=== PATIENT | female | born 1940 | race Caucasian/White ===

== ENCOUNTER 2020-01-25 15:16 | Outpatient (REF) | payer MEDICARE, SELFPAY ==
--- NOTE | 2020-01-25 16:14 | XR_ITS ---
EXAMINATION: XR HIP, LEFT CLINICAL INFORMATION: Pain. COMPARISON: None TECHNIQUE: Two views of the left hip. FINDINGS: There is no visible acute fracture, dislocation or subluxation. No bony erosive changes seen. The soft tissues are normal. XR/XR hip LT min 2V IMPRESSION: Unremarkable left hip exam.
== END 2020-01-25 15:17 | disposition home or self-care (01) ==
LOC: HO.XRAY 15:16
PROVIDERS: PCP Family Medicine; Visit Provider Emergency Medicine
DX: M25.552 Pain in left hip (principal); Z91.81 History of falling
CPT/HCPCS: 73502

== ENCOUNTER 2020-02-01 15:23 | Inpatient (IN) | payer MEDICARE, SELFPAY ==
[2020-02-01 15:33] VITALS: BP 172/90; PULSE 89; PULSE 93; RESP 18; TEMP 36.9; O2SAT 98; BMI 27.7
--- NOTE | 2020-02-01 15:38 | CT_ITS ---
EXAMINATION: CT PELVIS WITHOUT CONTRAST CLINICAL INFORMATION: Fall one week ago with continued pain COMPARISON: Hip radiographs 01/25/2020 TECHNIQUE: Helical scanning was performed with submillimeter collimation through the pelvis. Sagittal and coronal multiplanar 2-D reconstructions were obtained. This CT examination was performed using dose optimization techniques as appropriate, variously including the following: *Automated exposure control *Adjustment of mA and/or kV according to patient size (this includes techniques or standardized protocols for targeted exams where dose is matched to indication/reason for exam; i.e. extremities or head) *Use of iterative reconstruction technique DLP: 566 mGy-cm FINDINGS: There is a subcapital fracture of the left femur, minimally impacted. No other fractures are seen. 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 (Series 5 image 46). Atherosclerotic changes are present in the aorta and iliac vessels. An anteverted uterus is present. An abnormal adnexal mass or free intraperitoneal fluid is not seen. No hernias are identified. CT/CT pelvis wo con IMPRESSION: Subcapital fracture of the left femur, minimally impacted. Incidentally noted small bowel lipoma This critical result was discussed with Sariah HEWITT @ 518 pm on the day the exam and it was ascertained that the content and urgency of the report was understood at the time of direct communication.
--- NOTE | 2020-02-01 15:39 | ED.LOWEXIN ---
HPI - Extremity Injury (Lower) General Chief Complaint: Fall Stated Complaint: RT HIP PAIN S/P FALL 1 WEEK AGO Time Seen by Provider: 02/01/20 15:29 Source: EMS Mode of arrival: EMS History of Present Illness HPI Narrative: 79-year-old female with a past medical history of hypertension, diabetes, hyperlipidemia, dementia, seizures, complaining of continued left hip pain s/p fall 1 week ago from standing. Patient had negative x-rays outpatient with PCP on 01/25/20, but was sent in for CT for further evaluation. Reportedly from PCP records pain worse when walking, relieved with rest. Per PCP fax records daughter reported patient had a fall again last night and was advised to come to ED. Patient was unaccompanied by any family to ED MD complaint: hip injury Onset (ago): week(s) Related Data Allergies Allergy/AdvReac Type Severity Reaction Status Date / Time penicillin V Allergy Unknown Verified 02/12/16 00:00 Penicillins [PENICILLINS] Allergy Unknown RASH Unverified 11/10/19 15:34 Review of Systems Review of Systems: MSK: +L hip pain History unobtainable due to patient's dementia Yes all other systems are reviewed and are negative PMFSH Past Medical History Attestation statement: The following information was validated with the patient. Social History Social History Advance Directives: No Advance Directives Information Provided: No Physical Exam Vital Signs: Vital Signs: Last Vital Signs Temp 98.4 F 02/01/20 15:33 Pulse 89 02/01/20 15:33 Resp 18 02/01/20 15:33 BP 172/90 H 02/01/20 15:33 Pulse Ox 98 02/01/20 15:33 Body Mass Index 27.7 Const: Other: pleasantly demented General: cooperative Limitations: no limitations HENMT: Head: Yes normal to inspection Ears: hearing grossly normal bilaterally General nose exam: Normal external nose present Face and sinus: Yes normal facial exam Eyes: General: appearance normal, both eyes and all related structures EOM: EOMs intact bilaterally Neck: Other: No midline cervical spinous tenderness or step-offs Neck: Yes normal visual inspection Resp: Effort & Inspection: normal respiratory effort Cardio: Rate: regular rate Peripheral pulses: dorsalis pedis present GI: Inspection: Yes normal to inspection Palpation (GI): Soft to palpation, nontender, no guarding and not rigid Back/Spine/Pelvis: Other: No midline spinous tenderness throughout or palpable step-offs/deformity Skin: Rashes: no rashes Wounds: no wounds Extrem: Other: + left hip with ttp, and pain with passive ROM. Neurovascularly intact. No appreciable deformity/signs of infection General: Yes normal to inspection Course Course Course Narrative: --1700--ED care transferred to VOCATIONAL TRAINING DIRECTOR Jason pending CT results and dispo per results MDM - Extremity Injury (Lower) MDM Narrative Medical decision making narrative: 79-year-old female with a past medical history of hypertension, diabetes, hyperlipidemia, dementia, seizures, complaining of continued left hip pain s/p fall 1 week ago from standing. On exam VSS, NAD/well-appearing, left hip with tenderness and pain with passive ROM. Concern for fracture. Plan: Will obtain CT pelvis/hip Discharge Plan Discharge Clinical Impression: Acute hip pain Qualifiers: Laterality: left Qualified Code(s): M25.552 - Pain in left hip Fall Qualifiers: Encounter type: initial encounter Qualified Code(s): W19.XXXA - Unspecified fall, initial encounter
[2020-02-01] MEDS: LORazepam 2 MG/ML VIAL 0.5 MG IVPUSH (17:53)
[2020-02-01 17:55] VITALS: BP 134/92; RESP 18; O2SAT 98
[2020-02-01 18:10] VITALS: BP 172/90; PULSE 92; RESP 18
--- NOTE | 2020-02-01 18:17 | P.HPHOSP_ITS ---
History of Present Illness Date of Service: 02/01/20 Chief Complaint: left hip pain History taken by phone from the patient's daughter Gabbie, due to the patient's dementia. 79 year-old woman with DM2, HTN, HLD, seizure disorder s/p excision of benign brain tumor, and dementia who slipped and fell on 01/19/20. No head trauma or LOC. She called her PCP office on 01/24/20 and an X-ray was done on 01/25/20, which showed no fracture. However, later on on 01/25/20, she slipped and fell again. Since then, she has had darker, less frequent urination with hesitancy and bad odor. She is confused at baseline, but seems to be more so. She also has had increasing L hip pain, though she denies this to me. In the ED, a CT of the hip demonstrated a minimally impacted subcapital femur fracture. ROS limited by patient's dementia but she denies fever, chest pain, dyspnea, or abdominal pain. She says she feels absolutely fine but her daughter is an unreliable historian. Review of Systems Review of Systems: Yes Other (as per HPI, limited by dementia) Neurologic: Reports confusion Psychiatric: Psychiatric: Reports confusion [facility] Medical History Dementia Dyslipidemia Essential hypertension History of benign brain tumor Seizure disorder Type 2 diabetes mellitus Family history: reviewed and not pertinent Surgical History History of delivery History of cholecystectomy History of craniotomy Social History Household Members: Family Housing: Apartment Smoking Status: Never smoker Second Hand Smoke Exposure: No Meds Allergies Allergy/AdvReac Type Severity Reaction Status Date / Time penicillin V Allergy Unknown Verified 02/12/16 00:00 Penicillins [PENICILLINS] Allergy Unknown RASH Unverified 11/10/19 15:34 Home Medications Medication Instructions Recorded Confirmed Type amlodipine 10 mg PO DAILY 02/01/20 02/01/20 History baclofen 2.5 mg PO BID PRN 02/01/20 02/01/20 History cyanocobalamin (vitamin B-12) 500 mcg PO DAILY 02/01/20 02/01/20 History lamotrigine 50 mg PO DAILY 02/01/20 02/01/20 History lisinopril 20 mg PO DAILY 02/01/20 02/01/20 History melatonin 3 mg PO BEDTIME 02/01/20 02/01/20 History memantine 5 mg PO BID 02/01/20 02/01/20 History metformin 500 mg PO DAILY 02/01/20 02/01/20 History quetiapine 25 mg PO BEDTIME 02/01/20 02/01/20 History rosuvastatin 5 mg PO DAILY 02/01/20 02/01/20 History Physical Exam Vital Signs and Narrative: Vital Signs: Last Vital Signs Temp 98.4 F 02/01/20 15:33 Pulse 89 02/01/20 15:33 Resp 18 02/01/20 15:33 BP 172/90 H 02/01/20 15:33 Pulse Ox 98 02/01/20 15:33 Body Mass Index 27.7 Const: General: cooperative, healthy appearing, no acute distress, well developed and confusion Orientation/consciousness: confusion HENMT: Head: Yes normal to inspection Mouth: Normal oral and palatal mucosa present Eyes: Sclerae: sclerae normal Neck: Yes normal visual inspection, Yes no lymphadenopathy and Yes supple Thyroid: Thyroid normal Chest: Chest palpation & inspection: normal inspection of the chest Resp: Effort & Inspection: normal respiratory effort Auscultation: clear to auscultation bilaterally Cardio: Rate: regular rate Rhythm: regular rhythm GI: Inspection: Yes normal to inspection Palpation (GI): Soft to palpation and nontender Skin: General skin exam: no rashes or lesions noted Neuro: General: confusion Extrem: Other: minimal tenderness L hip, ROM surprisingly causes minimal pain General: Yes normal to inspection Results Labs CBC and Chem 7: 02/01/20 18:28 02/01/20 18:28 Imaging Radiologist's Impressions: Impressions Pelvis CT 02/01/20 15:38 IMPRESSION: Subcapital fracture of the left femur, minimally impacted. Incidentally noted small bowel lipoma This critical result was discussed with Sariah HEWITT @ 518 pm on the day the exam and it was ascertained that the content and urgency of the report was understood at the time of direct communication. Assessment and Plan (1) Hip fracture: Status: Acute 79yo F with PMHx HTN, DM2, HLD, dementia, and seizure disorder presenting with subcapital femur fracture after 2 falls # hip fracture - Ortho consult, NPO after midnight # urinary symptoms - check UA/UM/UCx # HTN - continue lisinopril and amlodipine # HLD - continue statin # DM2 - hold MTF, give correction-dose lispro # seizure disorder - continue lamotrigine # dementia - continue memantine, quetiapine, and melatonin # dispo - will need PT consult after any operative intervention planned # VTE ppx - BLE SCDs, t/c LMWH postoperatively # code - FULL per discussion with daughter
[2020-02-01 18:25] VITALS: BP 172/92; PULSE 84; RESP 18; O2SAT 98
[2020-02-01 18:37] LABS: MANUAL DIFF FLAG NO
[2020-02-01 18:38] LABS: Glucose Urine UA NEG (NEG); Leukocyte Esterase Urine NEG (NEG); Nitrite Urine NEG (NEG); PH 5.5 (5.0-8.0); Specific Gravity - Urine <= 1.005 (1.005-1.025); Urine Blood TRACE (NEG); Urine Ketones NEG (NEG); Urine Protein NEG (NEG-TRACE)
[2020-02-01 18:40] LABS: Appearance Urine CLEAR; Color Urine YELLOW
[2020-02-01 18:43] LABS: Bacteria Urine TRACE /LPF; RBC Urine 0-2 /HPF (0); WBC Urine 0 /HPF (0-4)
[2020-02-01 18:56] LABS: Basophils Absolute Auto 0.1 X10*3/uL (0.0-0.2); Basophils Percent Auto 0.7 % (0-2); Eosinophils Absolute Auto 0.2 X10*3/uL (0.0-0.4); Eosinophils Percent Auto 2.1 % (0-4); Hematocrit 39.9 % (37-47); Hemoglobin 12.9 g/dl (12.0-16.0); Imm Gran Abs Auto 0.07 X10*3/uL (0.00-0.03); Imm Gran Pct Auto 0.8 % (0.0-0.4); Lymphocytes Percent Auto 23.5 % (20-40); Mean Corpuscular HGB Conc 32.3 g/dl (31.0-35.0); Mean Corpuscular Hemoglobin 27.6 pg (27.0-33.0); Mean Corpuscular Volume 85.3 fL (80-98); Mean Platelet Volume 11.9 fL (9.4-12.3); Monocytes Absolute Auto 0.5 X10*3/uL (0.1-1.2); Monocytes Percent Auto 6.2 % (2-11); Neutrophils Absolute Auto 5.7 X10*3/uL (2.0-8.3); Neutrophils Percent Auto 66.7 % (45-73); Platelet Count 212 X10*3/uL (160-400); Red Blood Count 4.68 X10*6/uL (4.20-5.50); Red Cell Distribution Width 12.4 % (11.0-16.0); White Blood Count 8.6 X10*3/uL (4.8-10.8)
[2020-02-01 19:19] LABS: Alanine Aminotransferase 16 U/L (0-31); Albumin Level 4.1 g/dL (3.5-5.0); Alkaline Phosphatase 94 U/L (39-117); Anion Gap 14 (12-20); Aspartate Amino Transferase 17 U/L (5-31); Bilirubin Total 0.2 mg/dL (0.0-1.0); Blood Urea Nitrogen 18 mg/dL (9-16); Calcium 8.8 mg/dL (8.4-10.2); Carbon Dioxide 27 mmol/L (22-29); Chloride 106 mmol/L (96-108); Creatinine Clr Calc Pharmacy 55.3; Estimated Glomerular Filt Rate > 60; Glucose Random 96 mg/dL (60-115); Potassium 4.5 mmol/l (3.3-5.1); Sodium 142 mmol/L (135-145)
--- NOTE | 2020-02-01 19:41 | PC.NURSE ---
PT SPEAKING IN NAURUAN. PT RESTING IN STRETCHER PULLING ON HAGAN CATH. PT REMOVED HAGAN CATH SECURE. SECURE REPLACED. PT REQUESTING FOOD. PT AWAKE, RESPIRATIONS EASY, N/L. PT AWAITING FOR POSSIBLE ADMISSION. WILL CONTINUE TO MONITOR PT.
--- NOTE | 2020-02-01 19:45 | PC.NURSE ---
LABS DRAWN TO LAB.
--- NOTE | 2020-02-01 19:47 | P.HPOP_ITS ---
History of Present Illness History of Present Illness Date of Service: 02/01/20 Chief complaint: RT HIP PAIN S/P FALL 1 WEEK AGO Narrative: Suzanne Sam is a 79 year old female who presented to the ED via EMS due to left hip pain. Spoke to her daughter Linn, who states she fell last week and refused EMS because she was able to get up and walk, but then the following day she fell again. She was seen on 01/23 by her PCP for left hip pain, xray at the time was not obvious for fracture. As the days went on her pain increased which prompted her to come to the ED. While in the ED, CT scan was obtained which demonstrated a minimally displaced femoral neck fracture on the left. She was admitted to medical service and orthopedics was consulted for surgical planning. Review of Systems Review of Systems: Yes all other systems are reviewed and are negative Neurologic: Reports confusion Psychiatric: Psychiatric: Reports confusion PMFSH Past Medical History Medical History Dementia Dyslipidemia Essential hypertension History of benign brain tumor Seizure disorder Type 2 diabetes mellitus Family History Family history: reviewed and not pertinent Surgical History Surgical History History of delivery History of cholecystectomy History of craniotomy Social History Social History (Updated 02/01/20 @ 20:00 by Wilmer Delacruz PA-C) Household Members Other:: lives with and daughter, no EtOH/tobacco/drugs Housing Other:: no amb. device Advance Directives: No Advance Directives Information Provided: No Meds Allergies Allergy/AdvReac Type Severity Reaction Status Date / Time penicillin V Allergy Unknown Verified 02/12/16 00:00 Penicillins [PENICILLINS] Allergy Unknown RASH Unverified 11/10/19 15:34 Home Medications Medication Instructions Recorded Confirmed Type amlodipine 10 mg PO DAILY 02/01/20 02/01/20 History baclofen 2.5 mg PO BID PRN 02/01/20 02/01/20 History cyanocobalamin (vitamin B-12) 500 mcg PO DAILY 02/01/20 02/01/20 History lamotrigine 50 mg PO DAILY 02/01/20 02/01/20 History lisinopril 20 mg PO DAILY 02/01/20 02/01/20 History melatonin 3 mg PO BEDTIME 02/01/20 02/01/20 History memantine 5 mg PO BID 02/01/20 02/01/20 History metformin 500 mg PO DAILY 02/01/20 02/01/20 History quetiapine 25 mg PO BEDTIME 02/01/20 02/01/20 History rosuvastatin 5 mg PO DAILY 02/01/20 02/01/20 History Physical Exam Vital Signs: Vital Signs: Last Vital Signs Temp 98.4 F 02/01/20 15:33 Pulse 84 02/01/20 18:25 Resp 18 02/01/20 18:25 BP 172/92 H 02/01/20 18:25 Pulse Ox 98 02/01/20 18:25 Body Mass Index 27.7 Const: General: confusion Orientation/consciousness: confusion HENMT: Head: Yes normal to inspection, Yes normocephalic and Yes atraumatic Eyes: General: appearance normal, both eyes and all related structures Neck: Neck: Yes normal visual inspection and Yes no lymphadenopathy Resp: Effort & Inspection: normal respiratory effort and able to speak in complete sentences Cardio: Rate: regular rate Peripheral pulses: Peripheral pulses 2+ throughout GI: Palpation (GI): Soft to palpation Skin: General skin exam: no rashes or lesions noted and turgor normal Neuro: General: confusion Extrem: Other: Left hip minimal tenderness over the lateral aspect of the hip, no pain with log roll, she can initiate hip flexion but unable to full lift the leg. Skin intact, peripheral pulses intact. Results Labs Result Diagrams: 02/01/20 18:28 02/01/20 18:28 Labs: Abnormal lab results 02/01/20 02/01/20 Range/Units 18:28 18:28 Immature Gran % (Auto) 0.8 H (0.0-0.4) % Abs Immat Gran (auto) 0.07 H (0.00-0.03) X10*3/uL BUN 18 H (9-16) mg/dL H & H 02/01/20 Range/Units 18:28 Hgb 12.9 (12.0-16.0) g/dl Hct 39.9 (37-47) % All other labs normal. Assessment and Plan (1) Hip fracture: Status: Acute I discussed the case with Dr Haley . I spoke with the patients daughter, Bettina and explained the extent of the injury to the and options avai lable which include surgical intervention. I explained the procedure in detail along with the length of recovery and rehab course. I explained the risk, benefits and alternatives. Risk including, but not limited to infection, blood clots, bleeding, non union or malunion and nerve/tissue damage to surrounding areas. I answered all their questions and with their understanding they have consented to move forward with Operative Fixation of the left hip . The patient with be T&S, med clearance obtained and NPO after midnight. The daughter BETTINA signs consents ph: [phone]
--- NOTE | 2020-02-01 19:55 | PC.NURSE ---
CASE MGT SPEAKING WITH DAUGHTER ON PHONE.
[2020-02-01 20:01] LABS: Prothrombin Time 12.1 SEC (10.8-13.0)
[2020-02-01 20:03] LABS: Glucose, Whole Blood 102 mg/dL (60-115)
[2020-02-01 20:04] LABS: Partial Thromboplastin Time 37.2 SEC (24.1-38.0)
--- NOTE | 2020-02-01 21:16 | PC.NURSE ---
PT RESTLESS AND CONSTANTLY PULLING AT IV AND HAGAN TUBE. PT PULLED OUT IV AT THIS TIME. PT CLEANED UP WITH FRESH LINENS TO STRETCHER. PT GIVEN CRACKERS. G NURSE AWARE OF PT. COVID TEST OBTAINED FOR ADMISSION.
[2020-02-01] MEDS: Haloperidol Lactate 5 MG/ML VIAL IM (21:22)
[2020-02-01] MEDS: Melatonin 3 MG TABLET PO (22:00)
[2020-02-01] MEDS: QUEtiapine Fumarate 25 MG TABLET PO (22:00)
--- NOTE | 2020-02-01 22:13 | PC.NURSE ---
HL PLACED TO LEFT WRIST. PT UNDER CLOSE OBS D/T PULLING AT IV AND HAGAN CATH. PT EATING CRACKERS AND DRINKING WATER WITHOUT DIFFICULTY. PT IS NPO AFTER MIDNIGHT. COVID TEST OBTAINED TO LAB PER ORDERS. CONTINUE TO WAIT FOR BED ASSIGNMENT. PT AWAKE AND TUVALUAN SPEAKING WITH STAFF. PT REMINDED SEVERAL TIMES TO STAY IN BED. WILL CONTINUE TO MONITOR PT.
[2020-02-01 22:18] LABS: COVID-19 Test Negative (Negative); IDNOW Serial# 9DD0AD1C
[2020-02-01] MEDS: Morphine Sulfate 4 MG/ML CARTRIDGE 1 MG IVPUSH (22:22)
[2020-02-01 22:28] LABS: Glucose, Whole Blood 122 mg/dL (60-115)
[2020-02-02] VITALS (16 sets, daily range): BP systolic 126–197; BP diastolic 62–85; PULSE 64–119; RESP 14–20; TEMP 36.2–37.1; O2SAT 94–100
--- NOTE | 2020-02-02 | ECG_ITS ---
Test Reason : tachycardic Blood Pressure : / mmHG Vent. Rate : 117 BPM Atrial Rate : 117 BPM P-R Int : 156 ms QRS Dur : 128 ms QT Int : 350 ms P-R-T Axes : 077 -09 142 degrees QTc Int : 488 ms Sinus tachycardia Left bundle branch block Abnormal ECG Compared to 20 September 2018 at 14:40:41 Vent. rate increased Referred By: Sofia Gomez Electronically Signed By:CLAUDIA MATSON
--- NOTE | 2020-02-02 01:14 | PC.NURSE ---
REPORT TO FLOOR AT THIS TIME. PT RESTING IN STRETCHER. BELONGINGS WITH PT.
[2020-02-02] MEDS: 0.9 % Sodium Chloride Flush 3 ML SYRINGE IVFLUSH ×2 (02:31→20:13)
[2020-02-02 07:05] LABS: MANUAL DIFF FLAG NO
[2020-02-02 07:16] LABS: Basophils Percent Auto 0.5 % (0-2); Eosinophils Absolute Auto 0.2 X10*3/uL (0.0-0.4); Eosinophils Percent Auto 2.2 % (0-4); Hematocrit 37.6 % (37-47); Hemoglobin 12.2 g/dl (12.0-16.0); Imm Gran Abs Auto 0.03 X10*3/uL (0.00-0.03); Imm Gran Pct Auto 0.4 % (0.0-0.4); Lymphocytes Absolute Auto 1.3 X10*3/uL (1.2-4.9); Lymphocytes Percent Auto 16.9 % (20-40); Mean Corpuscular HGB Conc 32.4 g/dl (31.0-35.0); Mean Corpuscular Hemoglobin 27.7 pg (27.0-33.0); Mean Corpuscular Volume 85.5 fL (80-98); Monocytes Absolute Auto 0.5 X10*3/uL (0.1-1.2); Monocytes Percent Auto 6.8 % (2-11); Neutrophils Absolute Auto 5.6 X10*3/uL (2.0-8.3); Neutrophils Percent Auto 73.2 % (45-73); Platelet Count 224 X10*3/uL (160-400); Red Cell Distribution Width 12.5 % (11.0-16.0); White Blood Count 7.6 X10*3/uL (4.8-10.8)
[2020-02-02 07:23] LABS: Glucose, Whole Blood 116 mg/dL (60-115)
--- NOTE | 2020-02-02 07:26 | MHC.SHP ---
Pre-Procedural Eval Section A The patient is an INPATIENT: Yes Section B Chief Complaint: RT HIP PAIN S/P FALL 1 WEEK AGO Allergies: Allergies Allergy/AdvReac Type Severity Reaction Status Date / Time penicillin V Allergy Unknown Verified 02/12/16 00:00 Penicillins [PENICILLINS] Allergy Unknown RASH Unverified 11/10/19 15:34 Plan Patient has been examined and remains a candidate for the planned procedure
[2020-02-02] MEDS: ceFAZolin Sodium/Dextrose,Iso 2 GM/50 ML PIGGYBACK IV ×2 (07:30→13:28)
--- NOTE | 2020-02-02 07:36 | P.CONAN_ITS ---
HPI - Anesthesia Eval Consult details Narrative: 79 F w/femoral neck fracture [facility] Past Medical History Medical History Dementia Dyslipidemia Essential hypertension History of benign brain tumor Seizure disorder Type 2 diabetes mellitus Surgical History Surgical History History of delivery History of cholecystectomy History of craniotomy Social History Social History Household Members: Family Housing: Apartment Smoking Status: Never smoker Second Hand Smoke Exposure: No Meds Allergies Allergy/AdvReac Type Severity Reaction Status Date / Time penicillin V Allergy Unknown Verified 02/12/16 00:00 Penicillins [PENICILLINS] Allergy Unknown RASH Unverified 11/10/19 15:34 Home Medications Medication Instructions Recorded Confirmed Type amlodipine 10 mg PO DAILY 02/01/20 02/01/20 History baclofen 2.5 mg PO BID PRN 02/01/20 02/01/20 History cyanocobalamin (vitamin B-12) 500 mcg PO DAILY 02/01/20 02/01/20 History lamotrigine 50 mg PO DAILY 02/01/20 02/01/20 History lisinopril 20 mg PO DAILY 02/01/20 02/01/20 History melatonin 3 mg PO BEDTIME 02/01/20 02/01/20 History memantine 5 mg PO BID 02/01/20 02/01/20 History metformin 500 mg PO DAILY 02/01/20 02/01/20 History quetiapine 25 mg PO BEDTIME 02/01/20 02/01/20 History rosuvastatin 5 mg PO DAILY 02/01/20 02/01/20 History Exam Exam Date and Time: February 02, 2020 0736 Height,Weight and Vital Signs: Height 5 ft 6 in Weight 78 kg Last Vital Signs Temp 97.1 F 02/02/20 07:22 Pulse 70 02/02/20 07:22 Resp 18 02/02/20 07:22 BP 145/81 H 02/02/20 07:22 Pulse Ox 97 02/02/20 07:22 Pertinent Lab Results Pertinent Lab Results: Laboratory Tests 02/01/20 02/01/20 02/01/20 18:27 18:28 18:28 WBC 8.6 RBC 4.68 Hgb 12.9 Hct 39.9 MCV 85.3 MCH 27.6 MCHC 32.3 RDW 12.4 Plt Count 212 MPV 11.9 Immature Gran % (Auto) 0.8 H Neut % (Auto) 66.7 Lymph % (Auto) 23.5 [place] % (Auto) 6.2 Eos % (Auto) 2.1 Baso % (Auto) 0.7 Lymph # (Auto) 2.0 Jasper # (Auto) 0.5 Eos # (Auto) 0.2 Baso # (Auto) 0.1 Abs Immat Gran (auto) 0.07 H Absolute Neuts (auto) 5.7 Absolute Nucleated RBC 0.000 Nucleated RBC % (auto) 0.0 PT INR APTT Sodium 142 Potassium 4.5 Chloride 106 Carbon Dioxide 27 Anion Gap 14 BUN 18 H Creatinine 0.84 Estim Creat Clear Calc 55.3 Estimated GFR > 60 POC Glucose Random Glucose 96 Calcium 8.8 Total Bilirubin 0.2 AST 17 ALT 16 Alkaline Phosphatase 94 Total Protein 7.0 Albumin 4.1 Urine Color Urine Appearance Urine pH Ur Specific [place] Urine Protein Urine Glucose (UA) Urine Ketones Urine Blood Urine Nitrite Ur Leukocyte Esterase Urine RBC Urine WBC Ur Squamous Epith Cells Urine Bacteria COVID-19 ([facility]) COVID-19 Clin Com Blood Type B Positive Antibody Screen NEGATIVE 02/01/20 02/01/20 02/01/20 18:28 19:43 19:58 WBC RBC Hgb Hct MCV MCH MCHC RDW Plt Count MPV Immature Gran % (Auto) Neut % (Auto) Lymph % (Auto) [place] % (Auto) Eos % (Auto) Baso % (Auto) Lymph # (Auto) [place] # (Auto) Eos # (Auto) Baso # (Auto) Abs Immat Gran (auto) Absolute Neuts (auto) Absolute Nucleated RBC Nucleated RBC % (auto) PT 12.1 INR 1.0 APTT 37.2 Sodium Potassium Chloride Carbon Dioxide Anion Gap BUN Creatinine Estim Creat Clear Calc Estimated GFR POC Glucose 102 Random Glucose Calcium Total Bilirubin AST ALT Alkaline Phosphatase Total Protein Albumin Urine Color YELLOW Urine Appearance CLEAR Urine pH 5.5 Ur Specific [place] <= 1.005 Urine Protein NEG Urine Glucose (UA) NEG Urine Ketones NEG Urine Blood TRACE Urine Nitrite NEG Ur Leukocyte Esterase NEG Urine RBC 0-2 Urine WBC 0 Ur Squamous Epith Cells NONE Urine Bacteria TRACE COVID-19 ([facility]) COVID-19 Clin Com Blood Type Antibody Screen 02/01/20 02/01/20 02/02/20 21:25 22:24 07:20 WBC RBC Hgb Hct MCV MCH MCHC RDW Plt Count MPV Immature Gran % (Auto) Neut % (Auto) Lymph % (Auto) [place] % (Auto) Eos % (Auto) Baso % (Auto) Lymph # (Auto) [place] # (Auto) Eos # (Auto) Baso # (Auto) Abs Immat Gran (auto) Absolute Neuts (auto) Absolute Nucleated RBC Nucleated RBC % (auto) PT INR APTT Sodium Potassium Chloride Carbon Dioxide Anion Gap BUN Creatinine Estim Creat Clear Calc Estimated GFR POC Glucose 122 H 116 H Random Glucose Calcium Total Bilirubin AST ALT Alkaline Phosphatase Total Protein Albumin Urine Color Urine Appearance Urine pH Ur Specific [place] Urine Protein Urine Glucose (UA) Urine Ketones Urine Blood Urine Nitrite Ur Leukocyte Esterase Urine RBC Urine WBC Ur Squamous Epith Cells Urine Bacteria COVID-19 ([facility]) Negative COVID-19 Clin Com See Note Blood Type Antibody Screen Airway Mallampati Class: II TM Dist: >3cm Neck ROM: Full Loose/Missing/Broken Teeth: Yes (Multiple missing teeth, none loose) Assessment and Plan Assessment Anesthesia Assessment: Anesthesia Plan Discussed and Chart Reviewed Final Anesthetic Review NPO: Yes ASA Class: III Final Preanesthetic Review: No Changes in Pt Med Stat, Meds/Allgs Chart Reviewed, Consent Obtained/Reviewed and Anes Risks/Benef Reviewed Patient Risk: High Procedure Risk: Low Anesthetic Plan Anesthetic Plan: GA Disposition: Standard PACU
--- NOTE | 2020-02-02 07:36 | PC.NURSE ---
cefazolin to be given by anesthesia
[2020-02-02 07:47] LABS: Anion Gap 14 (12-20); Blood Urea Nitrogen 14 mg/dL (9-16); Calcium 8.9 mg/dL (8.4-10.2); Carbon Dioxide 24 mmol/L (22-29); Chloride 108 mmol/L (96-108); Creatinine Clr Calc Pharmacy 59.6; Estimated Glomerular Filt Rate > 60; Glucose Random 108 mg/dL (60-115); Potassium 4.2 mmol/l (3.3-5.1); Sodium 142 mmol/L (135-145)
[2020-02-02] MEDS: Lactated Ringers 1,000 ML 50 ML IVCONT (07:48)
--- NOTE | 2020-02-02 09:06 | PM.PRCOR ---
Brief Operative Note Date of procedure: 02/02/20 Pre-op diagnosis: left hip fracture Post-op diagnosis: same Procedure: operative fixation left hip with hemiarthroplasty Anesthesia: RHYSA Surgeon: Chikis Haley Six Sigma Project Manager: Wilmer Delacruz Estimated blood loss (mL): 100 Condition: stable Disposition: PACU
[2020-02-02 11:37] LABS: Glucose, Whole Blood 196 mg/dL (60-115)
[2020-02-02] MEDS: Insulin Lispro 100 UNIT/ML 3 ML VIAL SUBCUT ×2 (11:59→20:39)
[2020-02-02] MEDS: oxyCODONE HCl Immed Release 5 MG TABLET PO ×2 (11:59→17:43)
--- NOTE | 2020-02-02 12:32 | MHC.CM.PN ---
CM spoke with dtr/HCP Gabbie by phone [phone] who reports patient is amb independently and lives with her and other dtr. Patient has 24/7 care at home r/t dementia. HCP is Gabbie, copy requested. Discussed discharge plan which is STR, 1st choice is [facility], referral made via allscripts. Patient will need BLS transport. CM will continue to follow for discharge needs.
[2020-02-02] MEDS: Morphine Sulfate 4 MG/ML CARTRIDGE 1 MG IVPUSH ×2 (13:55→20:12)
--- NOTE | 2020-02-02 14:38 | HO.PM.IMPN ---
Subjective Subjective Date of Service: 02/02/20 Interval History: underwent operative fixation left hip with hemiarthroplasty today unable to obtain reliable ROS due to advanced dementia Physical Exam Vital Signs: Vital Signs: Last Vital Signs Temp 98 F 02/02/20 10:28 Pulse 93 02/02/20 10:28 Resp 18 02/02/20 13:55 BP 142/70 H 02/02/20 10:28 Pulse Ox 95 02/02/20 10:28 Body Mass Index 27.7 Gen: in no acute distress HEENT: sclera anicteric, moist mucus membranes Neck: supple Lungs: clear to auscultation bilaterally Heart: regular rate and rhythm, no murmurs Abd: soft, non-tender, non-distended Ext: no edema, L hip surgical incisions with dry dressings Skin: warm/well-perfused Neuro: disoriented Psych: impaired insight Objective Data Current Medications Generic Name Dose Route Start Last Admin Trade Name Freq PRN Reason Stop Dose Admin Acetaminophen 650 mg 02/01/20 18:06 Acetaminophen 325 Mg Tablet PO Q6H PRN pain or fever Amlodipine Besylate 10 mg 02/02/20 09:00 02/02/20 07:37 Amlodipine Besylate 10 Mg Tablet PO Not Given DAILY [facility] Protocol Aspirin 325 mg 02/03/20 22:00 Aspirin 325 Mg Tablet PO BID [facility] Atorvastatin Calcium 20 mg 02/02/20 09:00 02/02/20 07:37 Atorvastatin Calcium 20 Mg Tablet PO Not Given DAILY [facility] Cyanocobalamin 500 mcg 02/02/20 09:00 02/02/20 07:38 Cyanocobalamin (Vitamin B-12) 500 Mcg Tablet PO Not Given DAILY [facility] Lactated Ringer's 1,000 mls @ 50 mls/hr 02/02/20 07:45 02/02/20 07:48 Lr IVCONT 50 mls/hr .Q20H [facility] Administration Insulin Human Lispro 0 unit 02/01/20 21:00 02/02/20 11:59 Insulin Lispro 100 Unit/Ml 3 Ml Vial SUBCUT 2 unit QIDACHS [facility] Administration Protocol Lamotrigine 50 mg 02/02/20 09:00 02/02/20 07:38 Lamotrigine 25 Mg Tablet PO Not Given DAILY [facility] Lisinopril 20 mg 02/02/20 09:00 02/02/20 07:38 Lisinopril 20 Mg Tablet PO Not Given DAILY [facility] Protocol Melatonin 3 mg 02/01/20 21:00 02/01/20 22:00 Melatonin 3 Mg Tablet PO 3 mg BEDTIME [facility] Administration Memantine 5 mg 02/01/20 21:00 02/02/20 07:38 Memantine Hcl 5 Mg Tablet PO Not Given BID [facility] Morphine Sulfate 1 mg 02/01/20 18:12 02/02/20 13:55 Morphine Sulfate 4 Mg/Ml Cartridge IVPUSH 1 mg Q4H PRN Administration Pain, Severe (Pain Scale 7-10) Ondansetron HCl 4 mg 02/01/20 18:06 Ondansetron Hcl 4 Mg/2 Ml Vial IVPUSH Q8H PRN Nausea and Vomiting Oxycodone HCl 5 mg 02/02/20 12:00 02/02/20 11:59 Oxycodone Hcl Immed Release 5 Mg Tablet PO 5 mg RQ6H [facility] Administration Pharmacy Consult 1 each 02/01/20 17:36 Consult Rx Perform Med Rec MISCELLANE ONCE PRN Consult order Pharmacy Consult 1 each 02/01/20 17:51 Consult Rx Perform Med Rec MISCELLANE ONCE PRN Consult order Quetiapine Fumarate 25 mg 02/01/20 21:00 02/01/20 22:00 Quetiapine Fumarate 25 Mg Tablet PO 25 mg BEDTIME [facility] Administration Senna 17.2 mg 02/01/20 21:00 Sennosides 8.6 Mg Tablet PO ONCE [facility] Sodium Chloride 3 ml 02/02/20 00:00 02/02/20 07:37 0.9 % Sodium Chloride Flush 3 Ml Syringe IVFLUSH Not Given [facility] Sodium Chloride 3 ml 02/02/20 16:00 0.9 % Sodium Chloride Flush 3 [facility] CBC & Chem 7: 02/02/20 06:06 02/02/20 06:06 Labs: Laboratory Results - last 24 hr 02/01/20 02/01/20 02/01/20 18:27 18:28 18:28 WBC 8.6 RBC 4.68 Hgb 12.9 Hct 39.9 MCV 85.3 MCH 27.6 MCHC 32.3 RDW 12.4 Plt Count 212 MPV 11.9 Immature Gran % (Auto) 0.8 H Neut % (Auto) 66.7 Lymph % (Auto) 23.5 [place] % (Auto) 6.2 Eos % (Auto) 2.1 Baso % (Auto) 0.7 Lymph # (Auto) 2.0 [place] # (Auto) 0.5 Eos # (Auto) 0.2 Baso # (Auto) 0.1 Abs Immat Gran (auto) 0.07 H Absolute Neuts (auto) 5.7 Absolute Nucleated RBC 0.000 Nucleated RBC % (auto) 0.0 PT INR APTT Sodium 142 Potassium 4.5 Chloride 106 Carbon Dioxide 27 Anion Gap 14 BUN 18 H Creatinine 0.84 Estim Creat Clear Calc 55.3 Estimated GFR > 60 POC Glucose Random Glucose 96 Calcium 8.8 Total Bilirubin 0.2 AST 17 ALT 16 Alkaline Phosphatase 94 Total Protein 7.0 Albumin 4.1 Urine Color Urine Appearance Urine pH Ur Specific [place] Urine Protein Urine Glucose (UA) Urine Ketones Urine Blood Urine Nitrite Ur Leukocyte Esterase Urine RBC Urine WBC Ur Squamous Epith Cells Urine Bacteria COVID-19 ([facility]NE) COVID-[facility] Com Blood Type B Positive Antibody Screen NEGATIVE 02/01/20 02/01/20 02/01/20 18:28 19:43 19:58 WBC RBC Hgb Hct MCV MCH MCHC RDW Plt Count MPV Immature Gran % (Auto) Neut % (Auto) Lymph % (Auto) [place] % (Auto) Eos % (Auto) Baso % (Auto) Lymph # (Auto) [place] # (Auto) Eos # (Auto) Baso # (Auto) Abs Immat Gran (auto) Absolute Neuts (auto) Absolute Nucleated RBC Nucleated RBC % (auto) PT 12.1 INR 1.0 APTT 37.2 Sodium Potassium Chloride Carbon Dioxide Anion Gap BUN Creatinine Estim Creat Clear Calc Estimated GFR POC Glucose 102 Random Glucose Calcium Total Bilirubin AST ALT Alkaline Phosphatase Total Protein Albumin Urine Color YELLOW Urine Appearance CLEAR Urine pH 5.5 Ur Specific [place] <= 1.005 Urine Protein NEG Urine Glucose (UA) NEG Urine Ketones NEG Urine Blood TRACE Urine Nitrite NEG Ur Leukocyte Esterase NEG Urine RBC 0-2 Urine WBC 0 Ur Squamous Epith Cells NONE Urine Bacteria TRACE COVID-19 ([facility]ZANNE) COVID-19 Evince Com Blood Type Antibody Screen 02/01/20 02/01/20 02/02/20 21:25 22:24 06:06 WBC 7.6 RBC 4.40 Hgb 12.2 Hct 37.6 MCV 85.5 MCH 27.7 MCHC 32.4 RDW 12.5 Plt Count 224 MPV 12.0 Immature Gran % (Auto) 0.4 Neut % (Auto) 73.2 H Lymph % (Auto) 16.9 L [place] % (Auto) 6.8 Eos % (Auto) 2.2 Baso % (Auto) 0.5 Lymph # (Auto) 1.3 [place] # (Auto) 0.5 Eos # (Auto) 0.2 Baso # (Auto) 0.0 Abs Immat Gran (auto) 0.03 Absolute Neuts (auto) 5.6 Absolute Nucleated RBC 0.000 Nucleated RBC % (auto) 0.0 PT INR APTT Sodium Potassium Chloride Carbon Dioxide Anion Gap BUN Creatinine Estim Creat Clear Calc Estimated GFR POC Glucose 122 H Random Glucose Calcium Total Bilirubin AST ALT Alkaline Phosphatase Total Protein Albumin Urine Color Urine Appearance Urine pH Ur Specific [place] Urine Protein Urine Glucose (UA) Urine Ketones Urine Blood Urine Nitrite Ur Leukocyte Esterase Urine RBC Urine WBC Ur Squamous Epith Cells Urine Bacteria COVID-19 ([facility]NE) Negative COVID-19 Clin Com See Note Blood Type Antibody Screen 02/02/20 02/02/20 02/02/20 06:06 07:20 11:34 WBC RBC Hgb Hct MCV MCH MCHC RDW Plt Count MPV Immature Gran % (Auto) Neut % (Auto) Lymph % (Auto) [place] % (Auto) Eos % (Auto) Baso % (Auto) Lymph # (Auto) [place] # (Auto) Eos # (Auto) Baso # (Auto) Abs Immat Gran (auto) Absolute Neuts (auto) Absolute Nucleated RBC Nucleated RBC % (auto) PT INR APTT Sodium 142 Potassium 4.2 Chloride 108 Carbon Dioxide 24 Anion Gap 14 BUN 14 Creatinine 0.78 Estim Creat Clear Calc 59.6 Estimated GFR > 60 POC Glucose 116 H 196 H Random Glucose 108 Calcium 8.9 Total Bilirubin AST ALT Alkaline Phosphatase Total Protein Albumin Urine Color Urine Appearance Urine pH Ur Specific [place] Urine Protein Urine Glucose (UA) Urine Ketones Urine Blood Urine Nitrite Ur Leukocyte Esterase Urine RBC Urine WBC Ur Squamous Epith Cells Urine Bacteria COVID-19 ([facility]NE) COVID-19 Clin Com Blood Type Antibody Screen Assessment and Plan (1) Hip fracture: Status: Acute Assessment and Plan: hospital d#2 79yo F with PMHx HTN, DM2, HLD, dementia, and seizure disorder presenting with subcapital femur fracture after 2 falls # hip fracture - s/p operative fixation left hip with hemiarthroplasty today # urinary symptoms - no evidence UTI # HTN - continue lisinopril and amlodipine # HLD - continue statin # DM2 - hold MTF, give correction-dose lispro # seizure disorder - continue lamotrigine # dementia - continue memantine, quetiapine, and melatonin # dispo - PT eval, will need STR # VTE ppx - BLE SCDs, ASA bid per Ortho
--- NOTE | 2020-02-02 14:42 | PC.NURSE ---
Pt post op left hip arthroplasty, pt confused, pt pulled off aquacell dsg, dr. gates made aware. said to obtain a new aqaucell dsg and reapply. Nursing supervisor poultry farm made aware. Nursing supervisor poultry farm brought a new aqaucell dsg, applied and telesitter placed in room. Pt pulled off aquacell dsg again, nursing supervisor poultry farm made aware, obtained a new aquacell dsg and applied. Sitter and telesitter at bedside. Will continue to monitor.
[2020-02-02 17:39] LABS: Glucose, Whole Blood 134 mg/dL (60-115)
--- NOTE | 2020-02-02 19:34 | PC.NURSE ---
Pt oriented to self only. Resting comfortable in bed. Swallowed pills ok, allowed this rn and sitter to repo and change pad. Bush draining.
[2020-02-02] MEDS: Memantine HCl 5 MG TABLET PO (20:11)
[2020-02-02] MEDS: Melatonin 3 MG TABLET PO (20:11)
[2020-02-02] MEDS: QUEtiapine Fumarate 25 MG TABLET PO (20:12)
[2020-02-02 20:18] LABS: Glucose, Whole Blood 156 mg/dL (60-115)
[2020-02-03] VITALS (9 sets, daily range): BP systolic 99–146; BP diastolic 41–71; PULSE 90–108; RESP 18–19; TEMP 36.7–37.5; O2SAT 93–98
[2020-02-03] MEDS: oxyCODONE HCl Immed Release 5 MG TABLET PO ×3 (00:13→17:13)
[2020-02-03] MEDS: Lactated Ringers 1,000 ML 50 ML IVCONT (06:10)
[2020-02-03 06:25] LABS: MANUAL DIFF FLAG NO
[2020-02-03 06:32] LABS: Basophils Percent Auto 0.3 % (0-2); Hematocrit 34.8 % (37-47); Hemoglobin 11.3 g/dl (12.0-16.0); Imm Gran Abs Auto 0.04 X10*3/uL (0.00-0.03); Imm Gran Pct Auto 0.3 % (0.0-0.4); Lymphocytes Absolute Auto 0.8 X10*3/uL (1.2-4.9); Lymphocytes Percent Auto 7.2 % (20-40); Mean Corpuscular HGB Conc 32.5 g/dl (31.0-35.0); Mean Corpuscular Volume 86.4 fL (80-98); Mean Platelet Volume 11.5 fL (9.4-12.3); Monocytes Absolute Auto 0.9 X10*3/uL (0.1-1.2); Monocytes Percent Auto 7.6 % (2-11); Neutrophils Absolute Auto 9.9 X10*3/uL (2.0-8.3); Neutrophils Percent Auto 84.6 % (45-73); Platelet Count 217 X10*3/uL (160-400); Red Blood Count 4.03 X10*6/uL (4.20-5.50); White Blood Count 11.7 X10*3/uL (4.8-10.8)
--- NOTE | 2020-02-03 07:00 | XR_ITS ---
EXAMINATION: XR HIP, LEFT CLINICAL INFORMATION: Status post left hip arthroplasty. COMPARISON: 01/25/2020 left hip radiographs. TECHNIQUE: Two views of the left hip. FINDINGS: The patient is status post left hip arthroplasty showing good anatomic alignment with no evidence for hardware malfunction. There is no acute fracture or dislocation. Mild subcutaneous air is seen. XR/XR hip LT min 2V IMPRESSION: Postsurgical changes. No hardware abnormality.
[2020-02-03 07:26] LABS: Anion Gap 15 (12-20); Blood Urea Nitrogen 18 mg/dL (9-16); Calcium 8.7 mg/dL (8.4-10.2); Carbon Dioxide 25 mmol/L (22-29); Chloride 105 mmol/L (96-108); Creatinine Clr Calc Pharmacy 44.3; Estimated Glomerular Filt Rate 50; Glucose Random 151 mg/dL (60-115); Potassium 4.6 mmol/l (3.3-5.1); Sodium 140 mmol/L (135-145)
--- NOTE | 2020-02-03 07:43 | HO.POSTANES ---
Post Anesthesia Evaluation Post Anesthesia Evaluation Vital Signs: Vital Signs Temp Pulse Resp BP Pulse Ox 02/03/20 07:10 98.1 F 96 19 146/71 H 98 02/03/20 02:54 99.5 F 108 H 18 133/58 L 98 02/02/20 21:31 115 H 149/73 H 02/02/20 20:42 98.7 F 115 H 18 166/75 H 96 02/02/20 20:12 18 02/02/20 20:00 97.4 F 119 H 18 197/82 H 96 Anesthesia: General Endotracheal-GETA Mental Status: Awake (Patient with dementia at baseline) Pain Control: Satisfactory (Unable to assess. Patient not answering) Nausea/Vomiting: None Hydration: Adequate Anesthesia-Related Issues: No Anes. Related Issues (No apparent anesthetic complication)
--- NOTE | 2020-02-03 07:49 | PM.PNORT ---
Subjective Subjective Date of Service: 02/03/20 Interval history: POD1 LT hip FAYE she is resting comfortably in bed. Reports mild pain on palpation of the left hip. No overnight events. Physical Exam Vital Signs: Vital Signs: Last Vital Signs Temp 98.1 F 02/03/20 07:10 Pulse 96 02/03/20 07:10 Resp 19 02/03/20 07:10 BP 146/71 H 02/03/20 07:10 Pulse Ox 98 02/03/20 07:10 Body Mass Index 27.7 Const: General: cooperative, healthy appearing and no acute distress Resp: Effort & Inspection: normal respiratory effort and able to speak in complete sentences Cardio: Rate: regular rate Peripheral pulses: Peripheral pulses 2+ throughout GI: Inspection: Yes normal to inspection Palpation (GI): Soft to palpation Skin: General skin exam: no rashes or lesions noted Extrem: Other: No ecchymosis, redness, drainage. NVI. Bandage clean dry and intact. Progress Note: A&P Assessment and plan (1) Status post total hip replacement, left: Status: Acute Assessment and Plan: Continue pain mgmnt Begin ASA for dvt ppx begin PT for LT hip hemiarthroplasty Dispo planning-Pending PT eval, pain mgmnt Fall Risk Details Current Medications: Current Medications Generic Name Dose Route Start Last Admin Trade Name Chris PRN Reason Stop Dose Admin Acetaminophen 650 mg 02/01/20 18:06 Acetaminophen 325 Mg Tablet PO Q6H PRN pain or fever Amlodipine Besylate 10 mg 02/02/20 09:00 02/02/20 07:37 Amlodipine Besylate 10 Mg Tablet PO Not Given DAILY [facility] Protocol Aspirin 325 mg 02/03/20 22:00 Aspirin 325 Mg Tablet PO BID [facility] Atorvastatin Calcium 20 mg 02/02/20 09:00 02/02/20 07:37 Atorvastatin Calcium 20 Mg Tablet PO Not Given DAILY [facility] Cyanocobalamin 500 mcg 02/02/20 09:00 02/02/20 07:38 Cyanocobalamin (Vitamin B-12) 500 Mcg Tablet PO Not Given DAILY [facility] Lactated Ringer's 1,000 mls @ 50 mls/hr 02/02/20 07:45 02/03/20 06:10 Lr IVCONT 50 mls/hr .Q20H [facility] Administration Insulin Human Lispro 0 unit 02/01/20 21:00 02/02/20 20:39 Insulin Lispro 100 Unit/Ml 3 Ml Vial SUBCUT 2 unit QIDACHS [facility] Administration Protocol Lamotrigine 50 mg 02/02/20 09:00 02/02/20 07:38 Lamotrigine 25 Mg Tablet PO Not Given DAILY [facility] Lisinopril 20 mg 02/02/20 09:00 02/02/20 07:38 Lisinopril 20 Mg Tablet PO Not Given DAILY [facility] Protocol Melatonin 3 mg 02/01/20 21:00 02/02/20 20:11 Melatonin 3 Mg Tablet PO 3 mg BEDTIME [facility] Administration Memantine 5 mg 02/01/20 21:00 02/02/20 20:11 Memantine Hcl 5 Mg Tablet PO 5 mg BID [facility] Administration Morphine Sulfate 1 mg 02/01/20 18:12 02/02/20 20:12 Morphine Sulfate 4 Mg/Ml Cartridge IVPUSH 1 mg Q4H PRN Administration Pain, Severe (Pain Scale 7-10) Ondansetron HCl 4 mg 02/01/20 18:06 Ondansetron Hcl 4 Mg/2 Ml Vial IVPUSH Q8H PRN Nausea and Vomiting Oxycodone HCl 5 mg 02/02/20 12:00 02/03/20 06:17 Oxycodone Hcl Immed Release 5 Mg Tablet PO Not Given RQ6H [facility] Pharmacy Consult 1 each 02/01/20 17:36 Consult Rx Perform Med Rec MISCELLANE ONCE PRN Consult order Pharmacy Consult 1 each 02/01/20 17:51 Consult Rx Perform Med Rec MISCELLANE ONCE PRN Consult order Quetiapine Fumarate 25 mg 02/01/20 21:00 02/02/20 20:12 Quetiapine Fumarate 25 Mg Tablet PO 25 mg BEDTIME [facility] Administration Senna 17.2 mg 02/01/20 21:00 Sennosides 8.6 Mg Tablet PO ONCE [facility] Sodium Chloride 3 ml 02/02/20 00:00 02/02/20 20:13 0.9 % Sodium Chloride Flush 3 Ml Syringe IVFLUSH 3 ml QSHIFT [facility] Administration Sodium Chloride 3 ml 02/02/20 16:00 02/03/20 00:14 0.9 % Sodium Chloride Flush 3 Ml Syringe IVFLUSH Not Given QSCTFT [facility] Time Spent With Patient Time: Total time spent is greater than 50% in coordination of care (as documented) at patient's floor/unit and/or counseling patient: Time with patient: 15 - 24 minutes
[2020-02-03 08:15] LABS: Glucose, Whole Blood 134 mg/dL (60-115)
[2020-02-03] MEDS: Memantine HCl 5 MG TABLET PO ×2 (10:02→23:18)
[2020-02-03] MEDS: Cyanocobalamin (Vitamin B-12) 500 MCG TABLET PO (10:02)
[2020-02-03] MEDS: lamoTRIgine 25 MG TABLET 50 MG PO (10:02)
[2020-02-03] MEDS: amLODIPine Besylate 10 MG TABLET PO (10:03)
[2020-02-03] MEDS: lisinopriL 20 MG TABLET PO (10:04)
[2020-02-03] MEDS: Acetaminophen 325 MG TABLET 650 MG PO (10:06)
[2020-02-03] MEDS: 0.9 % Sodium Chloride Flush 3 ML SYRINGE IVFLUSH ×2 (10:12)
[2020-02-03] MEDS: Atorvastatin Calcium 20 MG TABLET PO (10:26)
--- NOTE | 2020-02-03 11:10 | OP_ITS ---
SURGEON: Chikis Haley MD PREOPERATIVE DIAGNOSIS: Subcapital fracture, left hip. POSTOPERATIVE DIAGNOSIS: Subcapital fracture, left hip. PROCEDURE PERFORMED: Operative fixation of left hip with hemiarthroplasty - [place] Accolade II size 5 x 127 femoral component, standard neck sleeve, 46 mm Unitrax head. ESTIMATED BLOOD LOSS: COMPLICATIONS: ANESTHESIA: ASSISTANTS: KASH Mcgregor SPECIMENS: CLINICAL NOTE: This elderly lady fell and injured her hip on the day prior to her surgery. She was admitted to the hospital under the medical service and medically cleared. After explaining the risks, benefits, and alternatives and answering all the questions of her healthcare proxy, Bettina, it was mutually agreed upon to carry the following procedure. PROCEDURE IN DETAIL: Under a general anesthetic, the patient was placed in the right lateral decubitus position with the left leg up. The left hip was then prepped and draped in standard fashion with the left leg free. Surgical time-out was then performed. Patient was identified, procedure confirmed, site confirmed. Medical analogy and history were reviewed. Preoperative antibiotics given. Standard DVT prophylaxis was in place. All other items were discussed and agreed upon. Standard anterolateral approach to the hip was carried out, taken down through subcutaneous tissues. Hemostasis was achieved along the way using electrocautery, brought us down to the level of the fascia galindo, was divided along the length of the incision. The anterior two-thirds of the musculature was then elevated off the trochanter through tendon down to the level of the acetabulum. Capsulectomy was then performed. Fractured neck and shaft were delivered out of the wound. We resected it according to preoperative templating. The head was then removed. It was measured to 46 mm size and the acetabulum was then inspected. The remainder of the capsule was removed. There was no other abnormality. We turned our attention to the femur. Box osteotome was used to lateralize the canal. The T-reamer was used in standard fashion. It was then sequentially broached up to a size 5, which had excellent fit and fill and rotational alignment. It was trialed with a standard 46 mm Unitrax head. This demonstrated excellent leg lengths, full range of motions and stable in all position and therefore the size 5 x 127 Accolade II femoral stem with the standard neck sleeve and the 46 mm Unitrax head were selected and brought up to the table. The trial components were all removed after the hip was dislocated. The acetabulum and the femur were thoroughly irrigated. The permanent component was tapped into place with excellent fit and fill. Sanders taper was cleaned and dried, the head tapped into place with the sleeve on. The hip was relocated final time. It was demonstrated as it did with the trials, excellent leg lengths, full range of motion, and stability; and therefore proceeded to closure. Wound was thoroughly irrigated. The abductor musculature closed with #2 Dexon. Fascia galindo closed with #2 Quill suture. Skin was approximated using interrupted 2-0 Dexon. Skin was closed with maura. Sterile dressing was then applied. The anesthesia was then reversed and transferred supine to the room bed and taken to the recovery room in good condition. Intraoperatively, there was 100 mL of blood loss, no intraoperative transfusions or complications. MD RUBIN Harrison/MERCEDES / [id number]
--- NOTE | 2020-02-03 11:45 | MHC.CM.PN ---
PT HAS BEEN ACCEPTED AT [facility], CONTACT IS [place] [phone], PT WILL NEED RAPID COVID DAY OF D/C, BLS TO TRANSPORT, DAUGHTER AND HCP BRAD VILLALPANDO.
[2020-02-03] MEDS: Insulin Lispro 100 UNIT/ML 3 ML VIAL SUBCUT ×3 (12:05→21:56)
[2020-02-03 12:16] LABS: Glucose, Whole Blood 210 mg/dL (60-115)
--- NOTE | 2020-02-03 14:34 | HO.PM.IMPN ---
Subjective Subjective Date of Service: 02/03/20 Interval History: Appears to be in pain with movement, otherwise comfortable at rest ROS unreliable due to severe dementia Physical Exam Vital Signs: Vital Signs: Last Vital Signs Temp 98.5 F 02/03/20 11:00 Pulse 90 02/03/20 11:00 Resp 19 02/03/20 11:00 BP 136/67 02/03/20 11:00 Pulse Ox 98 02/03/20 11:00 Body Mass Index 27.7 Gen: in no acute distress HEENT: sclera anicteric, moist mucus membranes Neck: supple Lungs: clear to auscultation bilaterally Heart: regular rate and rhythm, no murmurs Abd: soft, non-tender, non-distended Ext: no edema, L hip surgical incision with dry dressing Skin: warm/well-perfused Neuro: disoriented Psych: impaired insight Objective Data Current Medications Generic Name Dose Route Start Last Admin Trade Name Freq PRN Reason Stop Dose Admin Acetaminophen 650 mg 02/01/20 18:06 02/03/20 10:06 Acetaminophen 325 Mg Tablet PO 650 mg Q6H PRN Administration pain or fever Amlodipine Besylate 10 mg 02/02/20 09:00 02/03/20 10:03 Amlodipine Besylate 10 Mg Tablet PO 10 mg DAILY [facility] Administration Protocol Aspirin 325 mg 02/03/20 22:00 Aspirin 325 Mg Tablet PO BID REPLACED BY [facility] Atorvastatin Calcium 20 mg 02/03/20 10:21 02/03/20 10:44 Atorvastatin Calcium 20 Mg Tablet PO Not Given DAILY [facility] Cyanocobalamin 500 mcg 02/02/20 09:00 02/03/20 10:02 Cyanocobalamin (Vitamin B-12) 500 Mcg Tablet PO 500 mcg DAILY [facility] Administration Lactated Ringer's 1,000 mls @ 50 mls/hr 02/02/20 07:45 02/03/20 06:10 Lr IVCONT 50 mls/hr .Q20H [facility] Administration Insulin Human Lispro 0 unit 02/01/20 21:00 02/03/20 12:05 Insulin Lispro 100 Unit/Ml 3 Ml Vial SUBCUT 4 unit QIDACHS [facility] Administration Protocol Lamotrigine 50 mg 02/02/20 09:00 02/03/20 10:02 Lamotrigine 25 Mg Tablet PO 50 mg DAILY [facility] Administration Lisinopril 20 mg 02/02/20 09:00 02/03/20 10:04 Lisinopril 20 Mg Tablet PO 20 mg DAILY [facility] Administration Protocol Melatonin 3 mg 02/01/20 21:00 02/02/20 20:11 Melatonin 3 Mg Tablet PO 3 mg BEDTIME [facility] Administration Memantine 5 mg 02/01/20 21:00 02/03/20 10:02 Memantine Hcl 5 Mg Tablet PO 5 mg BID [facility] Administration Morphine Sulfate 1 mg 02/01/20 18:12 02/02/20 20:12 Morphine Sulfate 4 Mg/Ml Cartridge IVPUSH 1 mg Q4H PRN Administration Pain, Severe (Pain Scale 7-10) Ondansetron HCl 4 mg 02/01/20 18:06 Ondansetron Hcl 4 Mg/2 Ml Vial IVPUSH Q8H PRN Nausea and Vomiting Oxycodone HCl 5 mg 02/02/20 12:00 02/03/20 12:05 Oxycodone Hcl Immed Release 5 Mg Tablet PO 5 mg RQ6H [facility] Administration Pharmacy Consult 1 each 02/01/20 17:36 Consult Rx Perform Med Rec MISCELLANE ONCE PRN Consult order Pharmacy Consult 1 each 02/01/20 17:51 Consult Rx Perform Med Rec MISCELLANE ONCE PRN Consult order Quetiapine Fumarate 25 mg 02/01/20 21:00 02/02/20 20:12 Quetiapine Fumarate 25 Mg Tablet PO 25 mg BEDTIME [facility] Administration Senna 17.2 mg 02/01/20 21:00 Sennosides 8.6 Mg Tablet PO ONCE [facility] Sodium Chloride 3 ml 02/02/20 00:00 02/03/20 10:12 0.9 % Sodium Chloride Flush 3 Ml Syringe IVFLUSH 3 ml QSHIFT [facility] Administration Sodium Chloride 3 ml 02/02/20 16:00 02/03/20 10:12 0.9 % Sodium Chloride Flush 3 Ml Syringe IVFLUSH 3 ml QSHIFT REPLACED BY [facility] Administration Labs CBC & Chem 7: 02/03/20 06:13 02/03/20 06:13 Labs: Laboratory Results - last 24 hr 02/02/20 02/02/20 02/03/20 17:24 20:14 06:13 WBC RBC Hgb Cancelled Hct Cancelled MCV MCH MCHC RDW Plt Count MPV Immature Gran % (Auto) Neut % (Auto) Lymph % (Auto) [place] % (Auto) Eos % (Auto) Baso % (Auto) Lymph # (Auto) [place] # (Auto) Eos # (Auto) Baso # (Auto) Abs Immat Gran (auto) Absolute Neuts (auto) Absolute Nucleated RBC Nucleated RBC % (auto) Sodium Potassium Chloride Carbon Dioxide Anion Gap BUN Creatinine Estim Creat Clear Calc Estimated GFR POC Glucose 134 H 156 H Random Glucose Calcium 02/03/20 02/03/20 02/03/20 06:13 06:13 07:30 WBC 11.7 H RBC 4.03 L Hgb 11.3 L Hct 34.8 L MCV 86.4 MCH 28.0 MCHC 32.5 RDW 13.0 Plt Count 217 MPV 11.5 Immature Gran % (Auto) 0.3 Neut % (Auto) 84.6 H Lymph % (Auto) 7.2 L [place] % (Auto) 7.6 Eos % (Auto) 0.0 Baso % (Auto) 0.3 Lymph # (Auto) 0.8 L [place] # (Auto) 0.9 Eos # (Auto) 0.0 Baso # (Auto) 0.0 Abs Immat Gran (auto) 0.04 H Absolute Neuts (auto) 9.9 H Absolute Nucleated RBC 0.000 Nucleated RBC % (auto) 0.0 Sodium 140 Potassium 4.6 Chloride 105 Carbon Dioxide 25 Anion Gap 15 BUN 18 H Creatinine 1.05 Estim Creat Clear Calc 44.3 Estimated GFR 50 POC Glucose 134 H Random Glucose 151 H D Calcium 8.7 02/03/20 11:09 WBC RBC Hgb Hct MCV MCH MCHC RDW Plt Count MPV Immature Gran % (Auto) Neut % (Auto) Lymph % (Auto) [place] % (Auto) Eos % (Auto) Baso % (Auto) Lymph # (Auto) [place] # (Auto) Eos # (Auto) Baso # (Auto) Abs Immat Gran (auto) Absolute Neuts (auto) Absolute Nucleated RBC Nucleated RBC % (auto) Sodium Potassium Chloride Carbon Dioxide Anion Gap BUN Creatinine Estim Creat Clear Calc Estimated GFR POC Glucose 210 H Random Glucose Calcium Assessment and Plan (1) Hip fracture: Status: Acute Assessment and Plan: hospital d#3 79yo F with PMHx HTN, DM2, HLD, dementia, and seizure disorder presenting with subcapital femur fracture after 2 falls # hip fracture - POD #1 operative fixation left hip with hemiarthroplasty # urinary symptoms - no evidence UTI # HTN - continue lisinopril and amlodipine # HLD - continue statin # DM2 - hold MTF, give correction-dose lispro # seizure disorder - continue lamotrigine # dementia - continue memantine, quetiapine, and melatonin # dispo - PT eval done, will need STR # VTE ppx - BLE SCDs, ASA bid per Ortho
[2020-02-03 16:23] LABS: Glucose, Whole Blood 189 mg/dL (60-115)
[2020-02-03 21:29] LABS: Glucose, Whole Blood 176 mg/dL (60-115)
[2020-02-03] MEDS: QUEtiapine Fumarate 25 MG TABLET PO (21:57)
[2020-02-03] MEDS: Melatonin 3 MG TABLET PO ×2 (21:57→22:02)
[2020-02-03] MEDS: Aspirin 325 MG TABLET PO (21:57)
[2020-02-04] VITALS (8 sets, daily range): BP systolic 110–162; BP diastolic 63–69; PULSE 78–104; RESP 18–19; TEMP 36.3–37; O2SAT 95–98
[2020-02-04] MEDS: oxyCODONE HCl Immed Release 5 MG TABLET PO ×4 (00:22→17:54)
[2020-02-04] MEDS: Lactated Ringers 1,000 ML 50 ML IVCONT (02:04)
[2020-02-04 07:18] LABS: MANUAL DIFF FLAG NO
[2020-02-04 07:24] LABS: Glucose, Whole Blood 149 mg/dL (60-115)
[2020-02-04 07:27] LABS: Basophils Percent Auto 0.2 % (0-2); Eosinophils Percent Auto 0.3 % (0-4); Hematocrit 29.8 % (37-47); Hemoglobin 9.9 g/dl (12.0-16.0); Imm Gran Abs Auto 0.09 X10*3/uL (0.00-0.03); Imm Gran Pct Auto 0.7 % (0.0-0.4); Lymphocytes Absolute Auto 0.9 X10*3/uL (1.2-4.9); Lymphocytes Percent Auto 7.1 % (20-40); Mean Corpuscular HGB Conc 33.2 g/dl (31.0-35.0); Mean Corpuscular Hemoglobin 28.2 pg (27.0-33.0); Mean Corpuscular Volume 84.9 fL (80-98); Mean Platelet Volume 11.8 fL (9.4-12.3); Monocytes Absolute Auto 0.7 X10*3/uL (0.1-1.2); Neutrophils Absolute Auto 10.3 X10*3/uL (2.0-8.3); Neutrophils Percent Auto 85.7 % (45-73); Platelet Count 186 X10*3/uL (160-400); Red Blood Count 3.51 X10*6/uL (4.20-5.50); Red Cell Distribution Width 12.9 % (11.0-16.0)
[2020-02-04 07:48] LABS: Anion Gap 10 (12-20); Blood Urea Nitrogen 20 mg/dL (9-16); Calcium 8.3 mg/dL (8.4-10.2); Carbon Dioxide 27 mmol/L (22-29); Chloride 106 mmol/L (96-108); Creatinine Clr Calc Pharmacy 58.1; Estimated Glomerular Filt Rate > 60; Glucose Random 137 mg/dL (60-115); Potassium 3.9 mmol/l (3.3-5.1); Sodium 139 mmol/L (135-145)
[2020-02-04] MEDS: Cyanocobalamin (Vitamin B-12) 500 MCG TABLET PO (10:39)
[2020-02-04] MEDS: lamoTRIgine 25 MG TABLET 50 MG PO (10:39)
[2020-02-04] MEDS: Aspirin 325 MG TABLET PO ×2 (10:39→21:34)
[2020-02-04] MEDS: amLODIPine Besylate 10 MG TABLET PO (10:40)
[2020-02-04] MEDS: lisinopriL 20 MG TABLET PO (10:40)
[2020-02-04] MEDS: Memantine HCl 5 MG TABLET PO ×2 (10:40→21:35)
[2020-02-04] MEDS: Atorvastatin Calcium 20 MG TABLET PO (10:40)
--- NOTE | 2020-02-04 10:46 | PM.PNORT ---
Subjective Subjective Date of Service: 02/04/20 Principal diagnosis: day 2 post op Interval history: day 2 post op. seems comfortable in bed. no new problems Physical Exam Vital Signs: Vital Signs: Last Vital Signs Temp 98.6 F 02/04/20 07:15 Pulse 80 02/04/20 10:40 Resp 18 02/04/20 07:15 BP 128/68 02/04/20 10:40 Pulse Ox 97 02/04/20 08:00 Body Mass Index 27.7 Extrem: Other: moves leg actively drsg intact Progress Note: A&P Assessment and plan (1) Status post total hip replacement, left: Status: Acute Assessment and Plan: no new concerns. continue with routine rehab and may be dcd when medically cleared Fall Risk Details Current Medications: Current Medications Generic Name Dose Route Start Last Admin Trade Name Freq PRN Reason Stop Dose Admin Acetaminophen 650 mg 02/01/20 18:06 02/03/20 10:06 Acetaminophen 325 Mg Tablet PO 650 mg Q6H PRN Administration pain or fever Amlodipine Besylate 10 mg 02/02/20 09:00 02/04/20 10:40 Amlodipine Besylate 10 Mg Tablet PO 10 mg DAILY TANK Administration Protocol Aspirin 325 mg 02/03/20 22:00 02/04/20 10:39 Aspirin 325 Mg Tablet PO 325 mg BID TANK Administration Atorvastatin Calcium 20 mg 02/03/20 10:21 02/04/20 10:40 Atorvastatin Calcium 20 Mg Tablet PO 20 mg DAILY [facility] Administration Cyanocobalamin 500 mcg 02/02/20 09:00 02/04/20 10:39 Cyanocobalamin (Vitamin B-12) 500 Mcg Tablet PO 500 mcg DAILY T[facility] Administration Lactated Ringer's 1,000 mls @ 50 mls/hr 02/02/20 07:45 02/04/20 02:04 Lr IVCONT 50 mls/hr .Q20H T[facility] Administration Insulin Human Lispro 0 unit 02/01/20 21:00 02/04/20 08:07 Insulin Lispro 100 Unit/Ml 3 Ml Vial SUBCUT Not Given QIDACHS [facility] Protocol Lamotrigine 50 mg 02/02/20 09:00 02/04/20 10:39 Lamotrigine 25 Mg Tablet PO 50 mg DAILY [facility] Administration Lisinopril 20 mg 02/02/20 09:00 12/12/20 10:40 Lisinopril 20 Mg Tablet PO 20 mg DAILY TANK Administration Protocol Melatonin 3 mg 02/01/20 21:00 02/03/20 22:02 Melatonin 3 Mg Tablet PO 3 mg BEDTIME [facility] Administration Memantine 5 mg 02/01/20 21:00 02/04/20 10:40 Memantine Hcl 5 Mg Tablet PO 5 mg BID TANK Administration Morphine Sulfate 1 mg 02/01/20 18:12 02/02/20 20:12 Morphine Sulfate 4 Mg/Ml Cartridge IVPUSH 1 mg Q4H PRN Administration Pain, Severe (Pain Scale 7-10) Ondansetron HCl 4 mg 02/01/20 18:06 Ondansetron Hcl 4 Mg/2 Ml Vial IVPUSH Q8H PRN Nausea and Vomiting Oxycodone HCl 5 mg 02/02/20 12:00 02/04/20 05:49 Oxycodone Hcl Immed Release 5 Mg Tablet PO 5 mg RQ6H [facility] Administration Pharmacy Consult 1 each 02/01/20 17:36 Consult Rx Perform Med Rec MISCELLANE ONCE PRN Consult order Pharmacy Consult 1 each 02/01/20 17:51 Consult Rx Perform Med Rec MISCELLANE ONCE PRN Consult order Quetiapine Fumarate 25 mg 02/01/20 21:00 02/03/20 21:57 Quetiapine Fumarate 25 Mg Tablet PO 25 mg BEDTIME [facility] Administration Senna 17.2 mg 02/01/20 21:00 Sennosides 8.6 Mg Tablet PO ONCE [facility] Sodium Chloride 3 ml 02/02/20 00:00 02/04/20 10:40 0.9 % Sodium Chloride Flush 3 Ml Syringe IVFLUSH Not Given QSHIFT [facility] Sodium Chloride 3 ml 02/02/20 16:00 02/04/20 10:40 0.9 % Sodium Chloride Flush 3 Ml Syringe IVFLUSH Not Given QSHIFT [facility] Time Spent With Patient Time: Total time spent is greater than 50% in coordination of care (as documented) at patient's floor/unit and/or counseling patient: Time with patient: less than 15 minutes
[2020-02-04 11:43] LABS: Glucose, Whole Blood 212 mg/dL (60-115)
[2020-02-04] MEDS: Insulin Lispro 100 UNIT/ML 3 ML VIAL SUBCUT ×2 (12:22→21:37)
--- NOTE | 2020-02-04 12:44 | P.PNIM_ITS ---
Subjective Subjective Date of Service: 02/04/20 Interval History: Does not appear to be in pain ROS unreliable due to severe dementia Review of Systems Review of Systems: Yes Unobtainable due to mental status Physical Exam Vital Signs: Vital Signs: Last Vital Signs Temp 97.9 F 02/04/20 12:00 Pulse 99 02/04/20 12:00 Resp 18 02/04/20 12:00 BP 137/67 02/04/20 12:00 Pulse Ox 97 02/04/20 12:00 Body Mass Index 27.7 Gen: in no acute distress HEENT: sclera anicteric, moist mucus membranes Neck: supple Lungs: clear to auscultation bilaterally Heart: regular rate and rhythm, no murmurs Abd: soft, non-tender, non-distended Ext: no edema, L hip surgical incision with dry dressing Skin: warm/well-perfused Neuro: disoriented Psych: impaired insight Objective Data Current Medications Generic Name Dose Route Start Last Admin Trade Name Freq PRN Reason Stop Dose Admin Acetaminophen 650 mg 02/01/20 18:06 02/03/20 10:06 Acetaminophen 325 Mg Tablet PO 650 mg Q6H PRN Administration pain or fever Amlodipine Besylate 10 mg 02/02/20 09:00 02/04/20 10:40 Amlodipine Besylate 10 Mg Tablet PO 10 mg DAILY TANK Administration Protocol Aspirin 325 mg 02/03/20 22:00 02/04/20 10:39 Aspirin 325 Mg Tablet PO 325 mg BID TANK Administration Atorvastatin Calcium 20 mg 02/03/20 10:21 02/04/20 10:40 Atorvastatin Calcium 20 Mg Tablet PO 20 mg DAILY [facility] Administration Cyanocobalamin 500 mcg 02/02/20 09:00 02/04/20 10:39 Cyanocobalamin (Vitamin B-12) 500 Mcg Tablet PO 500 mcg DAILY [facility]ANK Administration Lactated Ringer's 1,000 mls @ 50 mls/hr 02/02/20 07:45 02/04/20 02:04 Lr IVCONT 50 mls/hr .Q20H [facility] Administration Insulin Human Lispro 0 unit 02/01/20 21:00 02/04/20 12:22 Insulin Lispro 100 Unit/Ml 3 Ml Vial SUBCUT 4 unit QIDACHS [facility] Administration Protocol Lamotrigine 50 mg 02/02/20 09:00 02/04/20 10:39 Lamotrigine 25 Mg Tablet PO 50 mg DAILY TANK Administration Lisinopril 20 mg 02/02/20 09:00 02/04/20 10:40 Lisinopril 20 Mg Tablet PO 20 mg DAILY TANK Administration Protocol Melatonin 3 mg 02/01/20 21:00 02/03/20 22:02 Melatonin 3 Mg Tablet PO 3 mg BEDTIME [facility] Administration Memantine 5 mg 02/01/20 21:00 02/04/20 10:40 Memantine Hcl 5 Mg Tablet PO 5 mg BID TANK Administration Morphine Sulfate 1 mg 02/01/20 18:12 02/02/20 20:12 Morphine Sulfate 4 Mg/Ml Cartridge IVPUSH 1 mg Q4H PRN Administration Pain, Severe (Pain Scale 7-10) Ondansetron HCl 4 mg 02/01/20 18:06 Ondansetron Hcl 4 Mg/2 Ml Vial IVPUSH Q8H PRN Nausea and Vomiting Oxycodone HCl 5 mg 02/02/20 12:00 02/04/20 12:23 Oxycodone Hcl Immed Release 5 Mg Tablet PO 5 mg RQ6H [facility]ANK Administration Pharmacy Consult 1 each 02/01/20 17:36 Consult Rx Perform Med Rec MISCELLANE ONCE PRN Consult order Pharmacy Consult 1 each 02/01/20 17:51 Consult Rx Perform Med Rec MISCELLANE ONCE PRN Consult order Quetiapine Fumarate 25 mg 02/01/20 21:00 02/03/20 21:57 Quetiapine Fumarate 25 Mg Tablet PO 25 mg BEDTIME [facility]ANK Administration Senna 17.2 mg 02/01/20 21:00 Sennosides 8.6 Mg Tablet PO ONCE [facility] Sodium Chloride 3 ml 02/02/20 00:00 02/04/20 10:40 0.9 % Sodium Chloride Flush 3 Ml Syringe IVFLUSH Not Given QSHIFT [facility] Sodium Chloride 3 ml 02/02/20 16:00 02/04/20 10:40 0.9 % Sodium Chloride Flush 3 Ml Syringe IVFLUSH Not Given QSHIFT [facility] Labs CBC & Chem 7: 02/04/20 07:05 02/04/20 07:05 Labs: Laboratory Results - last 24 hr 02/03/20 02/03/20 02/04/20 16:08 21:24 07:05 WBC 12.0 H RBC 3.51 L Hgb 9.9 L Hct 29.8 L MCV 84.9 MCH 28.2 MCHC 33.2 RDW 12.9 Plt Count 186 MPV 11.8 Immature Gran % (Auto) 0.7 H Neut % (Auto) 85.7 H Lymph % (Auto) 7.1 L [place] % (Auto) 6.0 Eos % (Auto) 0.3 Baso % (Auto) 0.2 Lymph # (Auto) 0.9 L [place] # (Auto) 0.7 Eos # (Auto) 0.0 Baso # (Auto) 0.0 Abs Immat Gran (auto) 0.09 H Absolute Neuts (auto) 10.3 H Absolute Nucleated RBC 0.000 Nucleated RBC % (auto) 0.0 Sodium Potassium Chloride Carbon Dioxide Anion Gap BUN Creatinine Estim Creat Clear Calc Estimated GFR POC Glucose 189 H 176 H Random Glucose Calcium 02/04/20 02/04/20 02/04/20 07:05 07:13 11:27 WBC RBC Hgb Hct MCV MCH MCHC RDW Plt Count MPV Immature Gran % (Auto) Neut % (Auto) Lymph % (Auto) [place] % (Auto) Eos % (Auto) Baso % (Auto) Lymph # (Auto) [place] # (Auto) Eos # (Auto) Baso # (Auto) Abs Immat Gran (auto) Absolute Neuts (auto) Absolute Nucleated RBC Nucleated RBC % (auto) Sodium 139 Potassium 3.9 Chloride 106 Carbon Dioxide 27 Anion Gap 10 L BUN 20 H Creatinine 0.80 Estim Creat Clear Calc 58.1 Estimated GFR > 60 POC Glucose 149 H 212 H Random Glucose 137 H Calcium 8.3 L Assessment and Plan (1) Hip fracture: Status: Acute Assessment and Plan: hospital d#4 79yo F with PMHx HTN, DM2, HLD, dementia, and seizure disorder presenting with minimally impacted left subcapital femur fracture after 2 falls # postop anemia - recheck CBC in am # hip fracture - POD #2 operative fixation left hip with hemiarthroplasty, will need Ortho clinic f/u and STR # urinary symptoms - no evidence UTI, no complaints now # HTN - continue lisinopril and amlodipine # HLD - continue statin # DM2 - hold MTF, give correction-dose lispro # seizure disorder - continue lamotrigine # dementia - continue memantine, quetiapine, and melatonin # dispo - STR placement # VTE ppx - BLE SCDs, ASA bid per Ortho
[2020-02-04 14:00] LABS: COVID-19 Test Negative (Negative); IDNOW Serial# 9DD0AD1C
--- NOTE | 2020-02-04 15:34 | MHC.CM.PN ---
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 Bettina reports the pt is very anxious and asks if she can visit her. CM reviewed the visitation policy and she reported understanding. Bettina reports the pt may feel better if people use her familiar name, Arabella, instead of Suzanne. She reports the pt has always gone by Arabella and may not always respond to Suzanne. CM will call Bettina back on Thursday when DC is set.
[2020-02-04 16:36] LABS: Glucose, Whole Blood 113 mg/dL (60-115)
[2020-02-04] MEDS: polyethylene glycoL 3350 17 GM POWD.PACK PO (17:54)
[2020-02-04 21:00] LABS: Glucose, Whole Blood 184 mg/dL (60-115)
[2020-02-04] MEDS: Melatonin 3 MG TABLET PO (21:36)
[2020-02-04] MEDS: QUEtiapine Fumarate 25 MG TABLET PO (21:36)
[2020-02-05] VITALS (7 sets, daily range): BP systolic 130–163; BP diastolic 51–69; PULSE 69–101; RESP 18–19; TEMP 36.2–36.8; O2SAT 95–99
[2020-02-05] MEDS: oxyCODONE HCl Immed Release 5 MG TABLET PO ×4 (05:09→23:33)
[2020-02-05] MEDS: Lactated Ringers 1,000 ML 50 ML IVCONT (05:33)
[2020-02-05 07:48] LABS: MANUAL DIFF FLAG NO
[2020-02-05 07:50] LABS: Basophils Percent Auto 0.2 % (0-2); Eosinophils Absolute Auto 0.1 X10*3/uL (0.0-0.4); Hematocrit 29.3 % (37-47); Hemoglobin 9.3 g/dl (12.0-16.0); Imm Gran Abs Auto 0.05 X10*3/uL (0.00-0.03); Imm Gran Pct Auto 0.5 % (0.0-0.4); Lymphocytes Absolute Auto 1.2 X10*3/uL (1.2-4.9); Lymphocytes Percent Auto 11.8 % (20-40); Mean Corpuscular HGB Conc 31.7 g/dl (31.0-35.0); Mean Corpuscular Hemoglobin 27.4 pg (27.0-33.0); Mean Corpuscular Volume 86.2 fL (80-98); Monocytes Absolute Auto 0.6 X10*3/uL (0.1-1.2); Monocytes Percent Auto 5.7 % (2-11); Neutrophils Absolute Auto 8.2 X10*3/uL (2.0-8.3); Neutrophils Percent Auto 80.8 % (45-73); Platelet Count 191 X10*3/uL (160-400); White Blood Count 10.1 X10*3/uL (4.8-10.8)
[2020-02-05 08:09] LABS: Glucose, Whole Blood 138 mg/dL (60-115)
[2020-02-05] MEDS: Aspirin 325 MG TABLET PO ×2 (09:17→20:41)
[2020-02-05] MEDS: Memantine HCl 5 MG TABLET PO ×2 (09:18→20:41)
[2020-02-05] MEDS: Cyanocobalamin (Vitamin B-12) 500 MCG TABLET PO (09:18)
[2020-02-05] MEDS: amLODIPine Besylate 10 MG TABLET PO (09:18)
[2020-02-05] MEDS: lamoTRIgine 25 MG TABLET 50 MG PO (09:18)
[2020-02-05] MEDS: polyethylene glycoL 3350 17 GM POWD.PACK PO (09:18)
[2020-02-05] MEDS: lisinopriL 20 MG TABLET PO (09:18)
[2020-02-05] MEDS: Atorvastatin Calcium 20 MG TABLET PO (09:18)
[2020-02-05 12:02] LABS: Glucose, Whole Blood 150 mg/dL (60-115)
--- NOTE | 2020-02-05 12:49 | P.PNIM_ITS ---
Subjective Subjective Date of Service: 02/05/20 Interval History: denies pain appears comfortable no breathing issues Physical Exam Vital Signs: Vital Signs: Last Vital Signs Temp 97.7 F 02/05/20 11:33 Pulse 93 02/05/20 11:33 Resp 18 02/05/20 11:33 BP 133/55 L 02/05/20 11:33 Pulse Ox 98 02/05/20 11:33 Body Mass Index 27.7 Gen: in no acute distress HEENT: sclera anicteric, moist mucus membranes Neck: supple Lungs: clear to auscultation bilaterally Heart: regular rate and rhythm, no murmurs Abd: soft, non-tender, non-distended Ext: no edema, L hip surgical incision with dry dressing Skin: warm/well-perfused Neuro: disoriented Psych: impaired insight Objective Data Current Medications Generic Name Dose Route Start Last Admin Trade Name Freq PRN Reason Stop Dose Admin Acetaminophen 650 mg 02/01/20 18:06 02/03/20 10:06 Acetaminophen 325 Mg Tablet PO 650 mg Q6H PRN Administration pain or fever Amlodipine Besylate 10 mg 02/02/20 09:00 02/05/20 09:18 Amlodipine Besylate 10 Mg Tablet PO 10 mg DAILY TANK Administration Protocol Aspirin 325 mg 02/03/20 22:00 02/05/20 09:17 Aspirin 325 Mg Tablet PO 325 mg BID TANK Administration Atorvastatin Calcium 20 mg 02/03/20 10:21 02/05/20 09:18 Atorvastatin Calcium 20 Mg Tablet PO 20 mg DAILY TANK Administration Cyanocobalamin 500 mcg 02/02/20 09:00 02/05/20 09:18 Cyanocobalamin (Vitamin B-12) 500 Mcg Tablet PO 500 mcg DAILY TANK Administration Insulin Human Lispro 0 unit 02/01/20 21:00 02/05/20 12:11 Insulin Lispro 100 Unit/Ml 3 Ml Vial SUBCUT Not Given QIDACHS [facility] Protocol Lamotrigine 50 mg 02/02/20 09:00 02/05/20 09:18 Lamotrigine 25 Mg Tablet PO 50 mg DAILY TANK Administration Lisinopril 20 mg 02/02/20 09:00 02/05/20 09:18 Lisinopril 20 Mg Tablet PO 20 mg DAILY TANK Administration Protocol Melatonin 3 mg 02/01/20 21:00 02/04/20 21:36 Melatonin 3 Mg Tablet PO 3 mg BEDTIME [facility] Administration Memantine 5 mg 02/01/20 21:00 02/05/20 09:18 Memantine Hcl 5 Mg Tablet PO 5 mg BID TANK Administration Morphine Sulfate 1 mg 02/01/20 18:12 02/02/20 20:12 Morphine Sulfate 4 Mg/Ml Cartridge IVPUSH 1 mg Q4H PRN Administration Pain, Severe (Pain Scale 7-10) Ondansetron HCl 4 mg 02/01/20 18:06 Ondansetron Hcl 4 Mg/2 Ml Vial IVPUSH Q8H PRN Nausea and Vomiting Oxycodone HCl 5 mg 02/02/20 12:00 02/05/20 12:28 Oxycodone Hcl Immed Release 5 Mg Tablet PO 5 mg RQ6H TANK Administration Pharmacy Consult 1 each 02/01/20 17:36 Consult Rx Perform Med Rec MISCELLANE ONCE PRN Consult order Pharmacy Consult 1 each 02/01/20 17:51 Consult Rx Perform Med Rec MISCELLANE ONCE PRN Consult order Polyethylene Glycol 17 gm 02/04/20 15:45 02/05/20 09:18 Polyethylene Glycol 3350 17 Gm Powd.Pack PO 17 gm DAILY TANK Administration Quetiapine Fumarate 25 mg 02/01/20 21:00 02/04/20 21:36 Quetiapine Fumarate 25 Mg Tablet PO 25 mg BEDTIME [facility] Administration Senna 17.2 mg 02/01/20 21:00 Sennosides 8.6 Mg Tablet PO ONCE [facility] Sodium Chloride 3 ml 02/02/20 00:00 02/05/20 09:17 0.9 % Sodium Chloride Flush 3 Ml Syringe IVFLUSH Not Given QSHIFT [facility] Sodium Chloride 3 ml 02/02/20 16:00 02/05/20 09:17 0.9 % Sodium Chloride Flush 3 Ml Syringe IVFLUSH Not Given QSHIFT [facility] Labs CBC & Chem 7: 02/05/20 07:18 02/04/20 07:05 Labs: Laboratory Results - last 24 hr 02/04/20 02/04/20 02/04/20 13:35 16:20 20:56 WBC RBC Hgb Hct MCV MCH MCHC RDW Plt Count MPV Immature Gran % (Auto) Neut % (Auto) Lymph % (Auto) [place] % (Auto) Eos % (Auto) Baso % (Auto) Lymph # (Auto) [place] # (Auto) Eos # (Auto) Baso # (Auto) Abs Immat Gran (auto) Absolute Neuts (auto) Absolute Nucleated RBC Nucleated RBC % (auto) POC Glucose 113 184 H COVID-19 ([facility]) Negative COVID-19 Clin Com See Note 02/05/20 02/05/20 02/05/20 07:18 07:20 11:32 WBC 10.1 RBC 3.40 L Hgb 9.3 L Hct 29.3 L MCV 86.2 MCH 27.4 MCHC 31.7 RDW 13.0 Plt Count 191 MPV 12.0 Immature Gran % (Auto) 0.5 H Neut % (Auto) 80.8 H Lymph % (Auto) 11.8 L [place] % (Auto) 5.7 Eos % (Auto) 1.0 Baso % (Auto) 0.2 Lymph # (Auto) 1.2 [place] # (Auto) 0.6 Eos # (Auto) 0.1 Baso # (Auto) 0.0 Abs Immat Gran (auto) 0.05 H Absolute Neuts (auto) 8.2 Absolute Nucleated RBC 0.000 Nucleated RBC % (auto) 0.0 POC Glucose 138 H 150 H COVID-19 ([facility]) COVID-19 Clin Com Assessment and Plan (1) Hip fracture: Status: Acute Assessment and Plan: hospital d#5 79yo F with PMHx HTN, DM2, HLD, dementia, and seizure disorder presenting with minimally impacted left subcapital femur fracture after 2 falls # postop anemia - recheck CBC tomorrow # hip fracture - POD #3 operative fixation left hip with hemiarthroplasty, will need Ortho clinic f/u and STR # urinary symptoms - no evidence UTI, no complaints now # HTN - continue lisinopril and amlodipine # HLD - continue statin # DM2 - hold MTF, give correction-dose lispro # seizure disorder - continue lamotrigine # dementia - continue memantine, quetiapine, and melatonin # VTE ppx - BLE SCDs, ASA bid per Ortho # dispo - STR placement, awaiting insurance auth, likely tomorrow
[2020-02-05] MEDS: 0.9 % Sodium Chloride Flush 3 ML SYRINGE IVFLUSH ×2 (15:47→21:40)
[2020-02-05 16:06] LABS: Glucose, Whole Blood 165 mg/dL (60-115)
[2020-02-05] MEDS: Insulin Lispro 100 UNIT/ML 3 ML VIAL SUBCUT ×2 (17:01→20:47)
--- NOTE | 2020-02-05 18:44 | PC.NURSE ---
1800- Pt had not voided since this AM. Bladder scanned for 523ml. Pt straight cathed for about 600ml. Next DTV at 0000. Will continue to monitor.
[2020-02-05] MEDS: Melatonin 3 MG TABLET PO (20:41)
[2020-02-05] MEDS: QUEtiapine Fumarate 25 MG TABLET PO (20:41)
[2020-02-05 20:48] LABS: Glucose, Whole Blood 175 mg/dL (60-115)
[2020-02-06] VITALS (10 sets, daily range): BP systolic 127–178; BP diastolic 59–78; PULSE 80–107; RESP 14–19; TEMP 36.1–37.3; O2SAT 96–100
--- NOTE | 2020-02-06 05:22 | PC.NURSE ---
PT took out IV saying it was bothering her from sleeping. When Nurse tried to replace the IV, pt was refusing and wanting to wait till morning. was made aware. oked the wait
--- NOTE | 2020-02-06 05:24 | PC.NURSE ---
Pt was due to void at 2 am. There was not much urine in the perwick. Bladder scan only showed 280 cc. Will reassess in 6 hrs.
[2020-02-06] MEDS: oxyCODONE HCl Immed Release 5 MG TABLET PO ×2 (05:44→17:53)
[2020-02-06 08:36] LABS: Glucose, Whole Blood 136 mg/dL (60-115)
[2020-02-06] MEDS: lamoTRIgine 25 MG TABLET 50 MG PO (08:42)
[2020-02-06] MEDS: polyethylene glycoL 3350 17 GM POWD.PACK PO (08:42)
[2020-02-06] MEDS: Atorvastatin Calcium 20 MG TABLET PO (08:43)
[2020-02-06] MEDS: Aspirin 325 MG TABLET PO ×2 (08:44→21:01)
[2020-02-06] MEDS: Cyanocobalamin (Vitamin B-12) 500 MCG TABLET PO (08:46)
[2020-02-06] MEDS: Memantine HCl 5 MG TABLET PO ×2 (08:47→21:01)
[2020-02-06] MEDS: lisinopriL 20 MG TABLET PO (08:48)
[2020-02-06] MEDS: amLODIPine Besylate 10 MG TABLET PO (08:49)
[2020-02-06 08:52] LABS: MANUAL DIFF FLAG NO
[2020-02-06 08:54] LABS: Basophils Percent Auto 0.3 % (0-2); Eosinophils Absolute Auto 0.1 X10*3/uL (0.0-0.4); Eosinophils Percent Auto 1.8 % (0-4); Hematocrit 29.8 % (37-47); Hemoglobin 9.6 g/dl (12.0-16.0); Imm Gran Abs Auto 0.02 X10*3/uL (0.00-0.03); Imm Gran Pct Auto 0.3 % (0.0-0.4); Lymphocytes Absolute Auto 0.7 X10*3/uL (1.2-4.9); Lymphocytes Percent Auto 9.6 % (20-40); Mean Corpuscular HGB Conc 32.2 g/dl (31.0-35.0); Mean Corpuscular Hemoglobin 27.6 pg (27.0-33.0); Mean Corpuscular Volume 85.6 fL (80-98); Mean Platelet Volume 11.5 fL (9.4-12.3); Monocytes Absolute Auto 0.5 X10*3/uL (0.1-1.2); Monocytes Percent Auto 6.3 % (2-11); Neutrophils Absolute Auto 6.2 X10*3/uL (2.0-8.3); Neutrophils Percent Auto 81.7 % (45-73); Platelet Count 231 X10*3/uL (160-400); Red Blood Count 3.48 X10*6/uL (4.20-5.50); Red Cell Distribution Width 12.9 % (11.0-16.0); White Blood Count 7.6 X10*3/uL (4.8-10.8)
--- NOTE | 2020-02-06 09:34 | PM.PNORT ---
Subjective Subjective Date of Service: 02/06/20 Principal diagnosis: day 4 post op Interval history: 79 y.o. female POD 4 resting comfortably in bed. No overnight events. Physical Exam Vital Signs: Vital Signs: Last Vital Signs Temp 97.4 F 02/06/20 07:51 Pulse 92 02/06/20 07:51 Resp 19 02/06/20 07:51 BP 161/63 H 02/06/20 08:49 Pulse Ox 98 02/06/20 07:54 Body Mass Index 27.7 Const: General: cooperative, healthy appearing and no acute distress Resp: Effort & Inspection: normal respiratory effort and able to speak in complete sentences Cardio: Rate: regular rate Peripheral pulses: Peripheral pulses 2+ throughout GI: Inspection: Yes normal to inspection Palpation (GI): Soft to palpation Skin: General skin exam: no rashes or lesions noted Extrem: Other: Aquacel dressing changed. Wound is clean dry intact, maura intact. NVI. No ecchymosis, redness, or drainage. Progress Note: A&P Assessment and plan (1) S/P hip hemiarthroplasty: Status: Acute Assessment and Plan: Continue pain mgmnt Continue ASA dvt ppx Continue PT for LT hip hemiarthroplasty Dispo planning-Pending PT eval, pain mgmnt Fall Risk Details Current Medications: Current Medications Generic Name Dose Route Start Last Admin Trade Name Franq PRN Reason Stop Dose Admin Acetaminophen 650 mg 02/01/20 18:06 02/03/20 10:06 Acetaminophen 325 Mg Tablet PO 650 mg Q6H PRN Administration pain or fever Amlodipine Besylate 10 mg 02/02/20 09:00 02/06/20 08:49 Amlodipine Besylate 10 Mg Tablet PO 10 mg DAILY [facility] Administration Protocol Aspirin 325 mg 02/03/20 22:00 02/06/20 08:44 Aspirin 325 Mg Tablet PO 325 mg BID TANK Administration Atorvastatin Calcium 20 mg 02/03/20 10:21 02/06/20 08:43 Atorvastatin Calcium 20 Mg Tablet PO 20 mg DAILY [facility] Administration Cyanocobalamin 500 mcg 02/02/20 09:00 02/06/20 08:46 Cyanocobalamin (Vitamin B-12) 500 Mcg Tablet PO 500 mcg DAILY [facility] Administration Insulin Human Lispro 0 unit 02/01/20 21:00 02/06/20 08:49 Insulin Lispro 100 Unit/Ml 3 Ml Vial SUBCUT Not Given QIDACHS [facility] Protocol Lamotrigine 50 mg 02/02/20 09:00 02/06/20 08:42 Lamotrigine 25 Mg Tablet PO 50 mg DAILY [facility] Administration Lisinopril 20 mg 02/02/20 09:00 02/06/20 08:48 Lisinopril 20 Mg Tablet PO 20 mg DAILY [facility] Administration Protocol Melatonin 3 mg 02/01/20 21:00 02/05/20 20:41 Melatonin 3 Mg Tablet PO 3 mg BEDTIME [facility] Administration Memantine 5 mg 02/01/20 21:00 02/06/20 08:47 Memantine Hcl 5 Mg Tablet PO 5 mg BID TANK Administration Morphine Sulfate 1 mg 02/01/20 18:12 02/02/20 20:12 Morphine Sulfate 4 Mg/Ml Cartridge IVPUSH 1 mg Q4H PRN Administration Pain, Severe (Pain Scale 7-10) Ondansetron HCl 4 mg 02/01/20 18:06 Ondansetron Hcl 4 Mg/2 Ml Vial IVPUSH Q8H PRN Nausea and Vomiting Oxycodone HCl 5 mg 02/02/20 12:00 02/06/20 05:44 Oxycodone Hcl Immed Release 5 Mg Tablet PO 5 mg RQ6H [facility] Administration Pharmacy Consult 1 each 02/01/20 17:36 Consult Rx Perform Med Rec MISCELLANE ONCE PRN Consult order Pharmacy Consult 1 each 02/01/20 17:51 Consult Rx Perform Med Rec MISCELLANE ONCE PRN Consult order Polyethylene Glycol 17 gm 02/04/20 15:45 02/06/20 08:42 Polyethylene Glycol 3350 17 Gm Powd.Pack PO 17 gm DAILY [facility] Administration Quetiapine Fumarate 25 mg 02/01/20 21:00 02/05/20 20:41 Quetiapine Fumarate 25 Mg Tablet PO 25 mg BEDTIME [facility] Administration Senna 17.2 mg 02/01/20 21:00 Sennosides 8.6 Mg Tablet PO ONCE [facility] Sodium Chloride 3 ml 02/02/20 00:00 02/06/20 08:51 0.9 % Sodium Chloride Flush 3 Ml Syringe IVFLUSH Not Given QSHIFT [facility] Sodium Chloride 3 ml 02/02/20 16:00 02/06/20 08:43 0.9 % Sodium Chloride Flush 3 Ml Syringe IVFLUSH Not Given QSHIFT [facility] Time Spent With Patient Time: Total time spent is greater than 50% in coordination of care (as documented) at patient's floor/unit and/or counseling patient: Time with patient: less than 15 minutes
[2020-02-06 11:49] LABS: Glucose, Whole Blood 201 mg/dL (60-115)
[2020-02-06] MEDS: Insulin Lispro 100 UNIT/ML 3 ML VIAL SUBCUT ×2 (11:56→21:01)
--- NOTE | 2020-02-06 12:53 | P.DS_ITS ---
DS: Providers Provider Date of admission: 02/01/20 18:06 Primary care physician: Yessy Haley MD Consults: 02/01/20 18:11 Consult to Orthopedics Routine Consulting Provider: [facility] [place] Orthopedic Surgeons Reason for consultation: subcapital femur fracture DS: Diagnosis Discharge Diagnosis (1) S/P hip hemiarthroplasty: Status: Acute DS: Medications Discharge Medications Home Medications: Home Medications Medication Instructions Recorded Confirmed amlodipine 10 mg PO DAILY 02/01/20 02/01/20 baclofen 2.5 mg PO BID PRN 02/01/20 02/01/20 cyanocobalamin (vitamin B-12) 500 mcg PO DAILY 02/01/20 02/01/20 lamotrigine 50 mg PO DAILY 02/01/20 02/01/20 lisinopril 20 mg PO DAILY 02/01/20 02/01/20 melatonin 3 mg PO BEDTIME 02/01/20 02/01/20 memantine 5 mg PO BID 02/01/20 02/01/20 metformin 500 mg PO DAILY 02/01/20 02/01/20 quetiapine 25 mg PO BEDTIME 02/01/20 02/01/20 rosuvastatin 5 mg PO DAILY 02/01/20 02/01/20 DS: Summary Hospital Course Hospital Course: History of Present Illness obtained from H&P 01/31 Date of Service: 02/01/20 Chief Complaint: left hip pain History taken by phone from the patient's daughter Gabbie, due to the patient's dementia. 79 year-old woman with DM2, HTN, HLD, seizure disorder s/p excision of benign brain tumor, and dementia who slipped and fell on 01/19/20. No head trauma or LOC. She called her PCP office on 01/24/20 and an X-ray was done on 01/25/20, which showed no fracture. However, later on on 01/25/20, she slipped and fell again. Since then, she has had darker, less frequent urination with hesitancy and bad odor. She is confused at baseline, but seems to be more so. She also has had increasing L hip pain, though she denies this to me. In the ED, a CT of the hip demonstrated a minimally impacted subcapital femur fracture. Hospital course: Patient is postop day #6 , patient underwent operative fixation of left hip hemiarthroplasty after mechanical fall. Will be discharged on aspirin for prophylaxis for 6 weeks. She also developed post of anemia with hemoglobin now stable with no drop in hemoglobin. She did well postop and will be discharged to short-term rehab Time spent discussing smoking cessation with patient: more than 10 minutes Time Spent with Patient Time attestation: Total time spent providing and/or coordinating discharge services: Physical Exam Vital Signs: Vital Signs: Last Vital Signs Temp 97.4 F 02/06/20 07:51 Pulse 92 02/06/20 07:51 Resp 19 02/06/20 07:51 BP 161/63 H 02/06/20 08:49 Pulse Ox 98 02/06/20 07:54 Body Mass Index 27.7 Const: Other: Laying in bed, appears comfortable, denies any pain General: cooperative and no acute distress Orientation/consciousness: patient oriented x3 Eyes: General: appearance normal, both eyes and all related structures Pupils: Equal, round and reactive pupils present Resp: Effort & Inspection: normal respiratory effort and able to speak in complete sentences Auscultation: clear to auscultation bilaterally Cardio: Rate: regular rate Rhythm: regular rhythm GI: Palpation (GI): Soft to palpation Auscultation: normal bowel sounds Skin: General skin exam: no rashes or lesions noted Neuro: General: patient oriented x3 Cranial nerves: Yes Equal, round and reactive pupils present Cognition (Neuro): normal cognition Extrem: General: Yes normal to inspection and Yes no pedal edema DS: Data Data Completed and Pending Pending studies at discharge: Pending at discharge 02/02/20 08:52 Surgical [PTH] Routine Labs on day of discharge: 02/01/20 15:38 CT pelvis wo con Stat 02/01/20 17:48 LORazepam [Ativan] 0.5 mg IVPUSH STAT STA 02/01/20 18:06 Intake and Output QSHIFTE 02/01/20 18:10 Pulse Oximetry Q4HR 02/01/20 18:15 Enoxaparin Sodium [Lovenox] 30 mg SUBCUT Q24H 02/01/20 18:27 Type and Screen Stat 02/01/20 18:28 Complete Blood Count Auto Diff Stat Comprehensive Met. Panel Stat 02/01/20 Dinner Diabetic Diet 02/01/20 19:43 Partial Thromboplastin Time Stat Prothrombin Time INR Stat 02/01/20 19:58 Glucose, Whole Blood Routine 02/01/20 21:11 Haloperidol Lactate [Haldol] 5 mg IM STAT STA 02/01/20 21:25 COVID-19 ID NOW (Cloud) Stat 02/01/20 22:24 Glucose, Whole Blood Routine 02/02/20 ECG 12 lead EKG Stat 02/02/20 06:00 ceFAZolin Sodium/Dextrose,Iso [Ancef] 2 gm in 50 ml IV PREOP 02/02/20 06:06 Basic Metabolic Panel DAILY@0600 Complete Blood Count Auto Diff DAILY@0600 02/02/20 07:20 Glucose, Whole Blood Routine 02/02/20 07:45 Lactated Ringers [Lr] 1,000 ml IVCONT 50 mls/hr 02/02/20 07:51 fentaNYL citrate/PF [Sublimaze] 50 mcg .ROUTE .STK-MED ONE 02/02/20 08:17 Lidocaine HCl 2 % MPF [Xylocaine 2 % MPF] 5 ml .ROUTE .STK-MED ONE Rocuronium [place] [Zemuron] 100 mg IV .STK-MED ONE propofoL [Diprivan] 200 mg IVPUSH .STK-MED ONE 02/02/20 08:18 HYDROmorphone HCl [Dilaudid] 2 mg .ROUTE .STK-MED ONE 02/02/20 08:24 fentaNYL citrate/PF [Sublimaze] 50 mcg .ROUTE .STK-MED ONE 02/02/20 08:31 Acetaminophen [Ofirmev] 1,000 mg in 100 ml IV As directed 02/02/20 08:33 HYDROmorphone HCl [Dilaudid] 0.25 mg IVPUSH Q5M PRN oxyCODONE HCl Immed Release [Roxicodone] 5 mg PO ONCE PRN 02/02/20 08:34 ondansetron HCL [Zofran] 4 mg .ROUTE .STK-MED ONE 02/02/20 08:58 Transfer Order Routine 02/02/20 09:00 Atorvastatin Calcium [Lipitor] 20 mg PO DAILY 02/02/20 09:01 Sugammadex Sodium [Bridion] 200 mg IVPUSH .STK-MED ONE 02/02/20 11:34 Glucose, Whole Blood Routine 02/02/20 13:00 ceFAZolin Sodium/Dextrose,Iso [Ancef] 2 gm in 50 ml IV POSTOP 02/02/20 17:24 Glucose, Whole Blood Routine 02/02/20 20:14 Glucose, Whole Blood Routine 02/02/20 20:44 EKG Documentation DIRECTED 02/03/20 06:13 Basic Metabolic Panel Routine Complete Blood Count Auto Diff Routine 02/03/20 07:00 XR hip LT min 2V Routine 02/03/20 07:30 Glucose, Whole Blood Routine 02/03/20 11:09 Glucose, Whole Blood Routine 02/03/20 16:08 Glucose, Whole Blood Routine 02/03/20 21:24 Glucose, Whole Blood Routine 02/04/20 07:05 Basic Metabolic Panel Routine Complete Blood Count Auto Diff Routine 02/04/20 07:13 Glucose, Whole Blood Routine 02/04/20 11:27 Glucose, Whole Blood Routine 02/04/20 13:35 COVID-19 ID NOW (Cloud) Routine 02/04/20 16:20 Glucose, Whole Blood Routine 02/04/20 20:56 Glucose, Whole Blood Routine 02/05/20 07:18 Complete Blood Count Auto Diff Routine 02/05/20 07:20 Glucose, Whole Blood Routine 02/05/20 11:32 Glucose, Whole Blood Routine 02/05/20 15:50 Glucose, Whole Blood Routine 02/05/20 20:38 Glucose, Whole Blood Routine 02/06/20 07:50 Glucose, Whole Blood Routine 02/06/20 08:41 Complete Blood Count Auto Diff Stat 02/06/20 11:44 Glucose, Whole Blood Routine Laboratory Last Values WBC 7.6 X10*3/uL (4.8-10.8) 02/06/20 08:41 RBC 3.48 X10*6/uL (4.20-5.50) L 02/06/20 08:41 Hgb 9.6 g/dl (12.0-16.0) L 02/06/20 08:41 Hct 29.8 % (37-47) L 02/06/20 08:41 MCV 85.6 fL (80-98) 02/06/20 08:41 MCH 27.6 pg (27.0-33.0) 02/06/20 08:41 MCHC 32.2 g/dl (31.0-35.0) 02/06/20 08:41 RDW 12.9 % (11.0-16.0) 02/06/20 08:41 Plt Count 231 X10*3/uL (160-400) 02/06/20 08:41 MPV 11.5 fL (9.4-12.3) 02/06/20 08:41 Immature Gran % (Auto) 0.3 % (0.0-0.4) 02/06/20 08:41 Neut % (Auto) 81.7 % (45-73) H 02/06/20 08:41 Lymph % (Auto) 9.6 % (20-40) L 02/06/20 08:41 [place] % (Auto) 6.3 % (2-11) 02/06/20 08:41 Eos % (Auto) 1.8 % (0-4) 02/06/20 08:41 Baso % (Auto) 0.3 % (0-2) 02/06/20 08:41 Lymph # (Auto) 0.7 X10*3/uL (1.2-4.9) L 02/06/20 08:41 [place] # (Auto) 0.5 X10*3/uL (0.1-1.2) 02/06/20 08:41 Eos # (Auto) 0.1 X10*3/uL (0.0-0.4) 02/06/20 08:41 Baso # (Auto) 0.0 X10*3/uL (0.0-0.2) 02/06/20 08:41 Abs Immat Gran (auto) 0.02 X10*3/uL (0.00-0.03) 02/06/20 08:41 Absolute Neuts (auto) 6.2 X10*3/uL (2.0-8.3) 02/06/20 08:41 Absolute Nucleated RBC 0.000 X10*3/uL (0.0-0.012) 02/06/20 08:41 Nucleated RBC % (auto) 0.0 /100WBC (0.0-0.2) 02/06/20 08:41 PT 12.1 SEC (10.8-13.0) 02/01/20 19:43 INR 1.0 (0.9-1.1) 02/01/20 19:43 APTT 37.2 SEC (24.1-38.0) 02/01/20 19:43 Sodium 139 mmol/L (135-145) 02/04/20 07:05 Potassium 3.9 mmol/l (3.3-5.1) 02/04/20 07:05 Chloride 106 mmol/L (96-108) 02/04/20 07:05 Carbon Dioxide 27 mmol/L (22-29) 02/04/20 07:05 Anion Gap 10 (12-20) L 02/04/20 07:05 BUN 20 mg/dL (9-16) H 02/04/20 07:05 Creatinine 0.80 mg/dL (0.5-1.4) 02/04/20 07:05 Estim Creat Clear Calc 58.1 02/04/20 07:05 Estimated GFR > 60 02/04/20 07:05 POC Glucose 201 mg/dL (60-115) H 02/06/20 11:44 Random Glucose 137 mg/dL (60-115) H 02/04/20 07:05 Calcium 8.3 mg/dL (8.4-10.2) L 02/04/20 07:05 Total Bilirubin 0.2 mg/dL (0.0-1.0) 02/01/20 18:28 AST 17 U/L (5-31) 02/01/20 18:28 ALT 16 U/L (0-31) 02/01/20 18:28 Alkaline Phosphatase 94 U/L (39-117) 02/01/20 18:28 Total Protein 7.0 g/dL (6.5-8.0) 02/01/20 18:28 Albumin 4.1 g/dL (3.5-5.0) 02/01/20 18:28 Urine Color YELLOW 02/01/20 18:28 Urine Appearance CLEAR 02/01/20 18:28 Urine pH 5.5 (5.0-8.0) 02/01/20 18:28 Ur Specific [place] <= 1.005 (1.005-1.025) 02/01/20 18:28 Urine Protein NEG MG/DL (NEG-TRACE) 02/01/20 18:28 Urine Glucose (UA) NEG MG/DL (NEG) 02/01/20 18:28 Urine Ketones NEG MG/DL (NEG) 02/01/20 18:28 Urine Blood TRACE (NEG) 02/01/20 18:28 Urine Nitrite NEG (NEG) 02/01/20 18:28 Ur Leukocyte Esterase NEG (NEG) 02/01/20 18:28 Urine RBC 0-2 /HPF (0) 02/01/20 18:28 Urine WBC 0 /HPF (0-4) 02/01/20 18:28 Ur Squamous Epith Cells NONE /LPF 02/01/20 18:28 Urine Bacteria TRACE /LPF 02/01/20 18:28 COVID-19 (SUZANNE) Negative (Negative) 02/04/20 13:35 COVID-19 Clin Com See Note 02/04/20 13:35 Blood Type B Positive 02/01/20 18:27 Antibody Screen NEGATIVE 02/01/20 18:27 Discharge Plan Discharge Patient Disposition: [facility] Referrals: Yessy Haley MD [Primary Care Provider] - Wilmer Delacruz PA-C [Physician Cab Driver] - (2 wks post op) Discharge Medications: New acetaminophen 325 mg Tablet 650 mg PO Q6H PRN (Reason: pain or fever) Qty: 30 RF: 0 aspirin 325 mg Tablet 325 mg PO BID 42 Days Qty: 84 RF: 0 Continued quetiapine 25 mg tablet 25 mg PO BEDTIME RF: 0 lisinopril 20 mg tablet 20 mg PO DAILY RF: 0 melatonin 3 mg tablet 3 mg PO BEDTIME RF: 0 amlodipine 5 mg tablet 10 mg PO DAILY RF: 0 lamotrigine 25 mg tablet 50 mg PO DAILY RF: 0 cyanocobalamin (vitamin B-12) 500 mcg tablet 500 mcg PO DAILY RF: 0 metformin 500 mg tablet extended release 24 hr 500 mg PO DAILY RF: 0 rosuvastatin 5 mg tablet 5 mg PO DAILY RF: 0 memantine 5 mg tablet 5 mg PO BID RF: 0 baclofen 5 mg tablet 2.5 mg PO BID PRN (Reason: muscle spasm) RF: 0 Discharge Orders: Discharge Order (Routine); Ordered 02/07/20 Ordered By: Sofia Gomez Diet: regular diet Activity on Discharge: Use cane or walker Activity Restrictions/Additional Instructions: * Physical Therapy for hemiarthroplasty hip: no precautions, gait training, ROM, strength * Limit stair climbing * No showering, no tub bath-keep dressing clean, dry and intact * No driving x6 weeks * Continue Aspirin 325mg tabs twice a day x 4 weeks * Follow up with [facility] [place] Orthopedics in 2 weeks Visit Report Forms: Patient Portal Discharge page Care Plan Goals: restore function left hip Health Concerns: none Plan of Treatment: Physical Therapy Pain management DVT prophylaxis
--- NOTE | 2020-02-06 14:48 | MHC.CM.PN ---
THIS RN SPOKE W/HCP/DAUGHTER BRAD REGARDING PLACEMENT, MULTIPLE REFERRALS MADE, [place] [facility] WAS REQUESTING MORE INFO HOWEVER DECLINED DUE TO COVID OUTBREAK, WILL FOLLOW-UP WITH ADDITIONAL REFERRALS AND UPDATE HCP.
--- NOTE | 2020-02-06 15:08 | P.PNIM_ITS ---
Subjective Subjective Date of Service: 02/06/20 Interval History: Patient seen and examined at bedside. no acute complaints. Eating and drinking well, moving bowel. Physical Exam Vital Signs: Vital Signs: Last Vital Signs Temp 97.4 F 02/06/20 07:51 Pulse 92 02/06/20 07:51 Resp 18 02/06/20 12:00 BP 161/63 H 02/06/20 08:49 Pulse Ox 98 02/06/20 07:54 Body Mass Index 27.7 Const: General: cooperative and no acute distress Orientation/consciousness: patient oriented x3 Eyes: General: appearance normal, both eyes and all related structures Pupils: Equal, round and reactive pupils present Resp: Effort & Inspection: normal respiratory effort and able to speak in complete sentences Auscultation: clear to auscultation bilaterally Cardio: Rate: regular rate Rhythm: regular rhythm GI: Palpation (GI): Soft to palpation Auscultation: normal bowel sounds Skin: General skin exam: no rashes or lesions noted Neuro: General: patient oriented x3 Cranial nerves: Yes Equal, round and reactive pupils present Cognition (Neuro): normal cognition Objective Data Current Medications Generic Name Dose Route Start Last Admin Trade Name Freq PRN Reason Stop Dose Admin Acetaminophen 650 mg 02/01/20 18:06 02/03/20 10:06 Acetaminophen 325 Mg Tablet PO 650 mg Q6H PRN Administration pain or fever Amlodipine Besylate 10 mg 02/02/20 09:00 02/06/20 08:49 Amlodipine Besylate 10 Mg Tablet PO 10 mg DAILY TANK Administration Protocol Aspirin 325 mg 02/03/20 22:00 02/06/20 08:44 Aspirin 325 Mg Tablet PO 325 mg BID TANK Administration Atorvastatin Calcium 20 mg 02/03/20 10:21 02/06/20 08:43 Atorvastatin Calcium 20 Mg Tablet PO 20 mg DAILY TANK Administration Cyanocobalamin 500 mcg 02/02/20 09:00 02/06/20 08:46 Cyanocobalamin (Vitamin B-12) 500 Mcg Tablet PO 500 mcg DAILY TANK Administration Insulin Human Lispro 0 unit 02/01/20 21:00 02/06/20 11:56 Insulin Lispro 100 Unit/Ml 3 Ml Vial SUBCUT 4 unit QIDACHS TANK Administration Protocol Lamotrigine 50 mg 02/02/20 09:00 02/06/20 08:42 Lamotrigine 25 Mg Tablet PO 50 mg DAILY TANK Administration Lisinopril 20 mg 02/02/20 09:00 02/06/20 08:48 Lisinopril 20 Mg Tablet PO 20 mg DAILY TANK Administration Protocol Melatonin 3 mg 02/01/20 21:00 02/05/20 20:41 Melatonin 3 Mg Tablet PO 3 mg BEDTIME TANK Administration Memantine 5 mg 02/01/20 21:00 02/06/20 08:47 Memantine Hcl 5 Mg Tablet PO 5 mg BID TANK Administration Morphine Sulfate 1 mg 02/01/20 18:12 02/02/20 20:12 Morphine Sulfate 4 Mg/Ml Cartridge IVPUSH 1 mg Q4H PRN Administration Pain, Severe (Pain Scale 7-10) Ondansetron HCl 4 mg 02/01/20 18:06 Ondansetron Hcl 4 Mg/2 Ml Vial IVPUSH Q8H PRN Nausea and Vomiting Oxycodone HCl 5 mg 02/02/20 12:00 02/06/20 12:05 Oxycodone Hcl Immed Release 5 Mg Tablet PO Not Given RQ6H [facility] Pharmacy Consult 1 each 02/01/20 17:36 Consult Rx Perform Med Rec MISCELLANE ONCE PRN Consult order Pharmacy Consult 1 each 02/01/20 17:51 Consult Rx Perform Med Rec MISCELLANE ONCE PRN Consult order Polyethylene Glycol 17 gm 02/04/20 15:45 02/06/20 08:42 Polyethylene Glycol 3350 17 Gm Powd.Pack PO 17 gm DAILY TANK Administration Quetiapine Fumarate 25 mg 02/01/20 21:00 02/05/20 20:41 Quetiapine Fumarate 25 Mg Tablet PO 25 mg BEDTIME TANK Administration Senna 17.2 mg 02/01/20 21:00 Sennosides 8.6 Mg Tablet PO ONCE TANK Sodium Chloride 3 ml 02/02/20 00:00 02/06/20 08:51 0.9 % Sodium Chloride Flush 3 Ml Syringe IVFLUSH Not Given QSHIFT [facility] Sodium Chloride 3 ml 02/02/20 16:00 02/06/20 08:43 0.9 % Sodium Chloride Flush 3 Ml Syringe IVFLUSH Not Given QSHIFT [facility] Labs CBC & Chem 7: 02/06/20 08:41 02/04/20 07:05 Assessment and Plan (1) S/P hip hemiarthroplasty: Status: Acute (2) Hip fracture: Status: Acute Assessment and Plan: hospital d#5 79yo F with PMHx HTN, DM2, HLD, dementia, and seizure disorder presenting with minimally impacted left subcapital femur fracture after 2 falls # postop anemia - recheck CBC shows stable Hgb - follow daily CBC # hip fracture - POD #4 operative fixation left hip with hemiarthroplasty, will need Ortho clinic f/u and STR - Will dc on SHUKRI 6 wks for VTE ppx # urinary symptoms - no evidence UTI, no complaints now - monitor # HTN - continue lisinopril and amlodipine # HLD - continue statin # DM2 - hold MTF, give correction-dose lispro # seizure disorder - continue lamotrigine # dementia - continue memantine, quetiapine, and melatonin # VTE ppx - BLE SCDs, ASA bid per Ortho # dispo - STR placement, awaiting insurance auth, likely tomorrow
[2020-02-06 16:55] LABS: Glucose, Whole Blood 130 mg/dL (60-115)
[2020-02-06 21:01] LABS: Glucose, Whole Blood 165 mg/dL (60-115)
[2020-02-06] MEDS: QUEtiapine Fumarate 25 MG TABLET PO (21:01)
[2020-02-06] MEDS: Melatonin 3 MG TABLET PO (21:01)
[2020-02-07] VITALS (8 sets, daily range): BP systolic 98–161; BP diastolic 62–82; PULSE 92–102; RESP 17–20; TEMP 36.4–37; O2SAT 96–100
[2020-02-07] MEDS: oxyCODONE HCl Immed Release 5 MG TABLET PO ×2 (00:47→05:23)
[2020-02-07 06:28] LABS: Basophils Percent Auto 0.3 % (0-2); Eosinophils Absolute Auto 0.1 X10*3/uL (0.0-0.4); Eosinophils Percent Auto 1.2 % (0-4); Hematocrit 32.4 % (37-47); Hemoglobin 10.5 g/dl (12.0-16.0); Imm Gran Abs Auto 0.04 X10*3/uL (0.00-0.03); Imm Gran Pct Auto 0.4 % (0.0-0.4); Lymphocytes Absolute Auto 0.8 X10*3/uL (1.2-4.9); Lymphocytes Percent Auto 8.3 % (20-40); MANUAL DIFF FLAG NO; Mean Corpuscular HGB Conc 32.4 g/dl (31.0-35.0); Mean Corpuscular Hemoglobin 27.6 pg (27.0-33.0); Mean Platelet Volume 11.7 fL (9.4-12.3); Monocytes Absolute Auto 0.6 X10*3/uL (0.1-1.2); Monocytes Percent Auto 6.8 % (2-11); Neutrophils Absolute Auto 7.7 X10*3/uL (2.0-8.3); Platelet Count 270 X10*3/uL (160-400); Red Blood Count 3.81 X10*6/uL (4.20-5.50); Red Cell Distribution Width 12.8 % (11.0-16.0); White Blood Count 9.3 X10*3/uL (4.8-10.8)
[2020-02-07 07:50] LABS: Glucose, Whole Blood 142 mg/dL (60-115)
--- NOTE | 2020-02-07 09:07 | MHC.CM.PN ---
LATE ENTRY FOR 02/06/20 AT 1625 SPOKE WITH DAUGHTER/HCP BRAD REGARDING PLACEMENT AT [facility] IN [facility], PER HER REQUEST ANOTHER REFERRAL WAS SENT TO [facility] AT 0900. PLAN FOR D/C TO [place] IF [facility] HAS NO BEDS.
[2020-02-07] MEDS: Aspirin 325 MG TABLET PO ×2 (09:38→21:40)
[2020-02-07] MEDS: Memantine HCl 5 MG TABLET PO ×2 (09:40→21:43)
[2020-02-07] MEDS: lamoTRIgine 25 MG TABLET 50 MG PO (09:40)
[2020-02-07] MEDS: Cyanocobalamin (Vitamin B-12) 500 MCG TABLET PO (09:41)
[2020-02-07] MEDS: amLODIPine Besylate 10 MG TABLET PO (09:41)
[2020-02-07] MEDS: Atorvastatin Calcium 20 MG TABLET PO (09:43)
[2020-02-07] MEDS: lisinopriL 20 MG TABLET PO (09:43)
[2020-02-07] MEDS: polyethylene glycoL 3350 17 GM POWD.PACK PO (09:44)
--- NOTE | 2020-02-07 09:53 | MHC.CM.PN ---
AT 10:50AM THIS RN CALLED PT'S DAUGHTER/HCP BRAD TO LET THEM KNOW [facility] HAS NO BED AVAILABILITY AND WE PLAN TO MOVE FORWARD WITH LION[facility] VERDUZCO, DAUGHTER ON BOARD WITH DECISION.
[2020-02-07 10:29] LABS: COVID-19 Test Negative (Negative); IDNOW Serial# 9DD0AD1C
[2020-02-07 11:29] LABS: Glucose, Whole Blood 178 mg/dL (60-115)
[2020-02-07] MEDS: Insulin Lispro 100 UNIT/ML 3 ML VIAL SUBCUT (12:05)
--- NOTE | 2020-02-07 15:52 | MHC.CM.PN ---
IMM REVIEWED WITH DAUGHTER/HCP CHERI, PER HER REQUEST LEFT AT BEDSIDE WITH PT.
--- NOTE | 2020-02-07 16:14 | MHC.CM.PN ---
PATIENT DISCHARGING TO [facility] FOR SHORT TERM REHAB, TRANSPORTATION ARRANGED THROUGH [facility] FOR 6PM. CHARTING CLERK AND RN AWARE OF DISPOSITION AND TRANSPORT TIME.
[2020-02-07 17:43] LABS: Glucose, Whole Blood 137 mg/dL (60-115)
[2020-02-07] MEDS: Melatonin 3 MG TABLET PO (21:40)
[2020-02-07] MEDS: QUEtiapine Fumarate 25 MG TABLET PO (21:41)
[2020-02-08] VITALS: BP 133/63; PULSE 87; RESP 18; TEMP 37.1; O2SAT 99
--- NOTE | 2020-02-08 | XR_ITS ---
EXAMINATION: XR ABDOMEN KUB CLINICAL INDICATION: Constipation COMPARISON: CT February 01, 2020 TECHNIQUE: AP view of the abdomen. FINDINGS: There is no evidence of ileus or obstruction. Large amount stool seen throughout the colon. No pneumatosis intestinalis. No secondary signs of free air. Patient status post left total hip arthroplasty. XR/XR KUB IMPRESSION: Large amount stool within the colon without evidence of ileus or obstruction.
[2020-02-08 00:08] LABS: Glucose, Whole Blood 146 mg/dL (60-115)
[2020-02-08 04:00] VITALS: BP 137/66; PULSE 79; RESP 14; TEMP 35.9; O2SAT 100
[2020-02-08 07:44] VITALS: BP 147/73; PULSE 86; RESP 18; TEMP 37.3; O2SAT 99
[2020-02-08 08:00] VITALS: O2SAT 95
[2020-02-08] MEDS: lamoTRIgine 25 MG TABLET 50 MG PO (08:18)
[2020-02-08] MEDS: Aspirin 325 MG TABLET PO (08:18)
[2020-02-08] MEDS: polyethylene glycoL 3350 17 GM POWD.PACK PO (08:18)
[2020-02-08] MEDS: lisinopriL 20 MG TABLET PO (08:19)
[2020-02-08] MEDS: Cyanocobalamin (Vitamin B-12) 500 MCG TABLET PO (08:19)
[2020-02-08] MEDS: Atorvastatin Calcium 20 MG TABLET PO (08:19)
[2020-02-08] MEDS: amLODIPine Besylate 10 MG TABLET PO (08:19)
[2020-02-08] MEDS: Memantine HCl 5 MG TABLET PO (08:19)
[2020-02-08 08:20] LABS: Glucose, Whole Blood 117 mg/dL (60-115)
--- NOTE | 2020-02-08 09:19 | MHC.CM.PN ---
DUE TO PENDING INSURANCE AUTHORIZATION PT UNABLE TO TRANSFER ON 02/07/20, SPOKE WITH JUNE VERGARA FROM [place] AND AUTHORIZATION HAS GONE THROUGH AT 8:56AM, TRANSPORT ARRANGED FOR 11:00AM. NURSING AND CARRIER ASSOCIATE AWARE.
[2020-02-08 11:35] LABS: Glucose, Whole Blood 161 mg/dL (60-115)
[2020-02-08 11:57] VITALS: BP 154/78; PULSE 89; RESP 16; TEMP 36.7; O2SAT 99
[2020-02-08] MEDS: Sodium Phosphate,Mono-Dibasic 133 ML ENEMA PR (12:20)
--- NOTE | 2020-02-08 13:23 | MHC.CM.PN ---
PT DISCHARGING AT 2PM TO [facility] AT 2PM VIA [facility], DAUGHTER/HCP BRAD NOTIFIED AND GIVEN RESULTS OF FLEETS SHE REQUESTED
== END 2020-02-08 14:30 | disposition skilled nursing facility (03) | DRG 522 ==
LOC: HO.ED 15:49 → HO.IMC 22:23 → HO.S3 02-02 16:04
PROVIDERS: Nurse Practitioner Primary Care; Orthopaedic Surgery; Physician Assistant; Admitting Provider Family Medicine; Emergency Provider Emergency Medicine; PCP Family Medicine; Visit Provider Internal Medicine
PROC: (CPT 27125; principal; 2020-02-02 07:30)
DX: S72.012A Unspecified intracapsular fracture of left femur, initial encounter for closed fracture (principal); W19.XXXA Unspecified fall, initial encounter; Y93.9 Activity, unspecified; E78.5 Hyperlipidemia, unspecified; I10 Essential (primary) hypertension; Y92.9 Unspecified place or not applicable; E11.9 Type 2 diabetes mellitus without complications; G40.909 Epilepsy, unspecified, not intractable, without status epilepticus; Y99.9 Unspecified external cause status; F03.90 Unspecified dementia, unspecified severity, without behavioral disturbance, psychotic disturbance, mood disturbance, and anxiety; Z20.828 Contact with and (suspected) exposure to other viral communicable diseases; Z88.0 Allergy status to penicillin; Z79.84 Long term (current) use of oral hypoglycemic drugs; Z79.899 Other long term (current) drug therapy
CPT/HCPCS: 36415; 72192; 73502; 74018; 80048; 80053; 81001; 82947; 85025; 85610; 85730; 86850; 86900; 86901; 87635; 88305; 88311; 93005; 96372; 96374; 97163; 97530; 99024; 99283; 99285; C1776; J0131; J0690; J1170; J2060; J2270; J2405; J3010

== ENCOUNTER → 2020-02-21 12:37 | Outpatient (BNVA) | payer MEDICARE, SELFPAY | PROVIDERS: Visit Provider Orthopaedic Surgery | DX: Z47.1 Aftercare following joint replacement surgery (principal); Z96.649 Presence of unspecified artificial hip joint | CPT/HCPCS: 99212 ==

== ENCOUNTER 2020-03-27 14:32 | Outpatient (REF) | payer MEDICARE, SELFPAY ==
--- NOTE | 2020-03-28 13:44 | XR_ITS ---
EXAMINATION: XR HIP, LEFT CLINICAL INFORMATION: Pain COMPARISON: Previous x-ray 02/03/2020 TECHNIQUE: Two views of the left hip and one view of the pelvis. FINDINGS: There is a left hip replacement in satisfactory position. No fracture or dislocation is seen. There is mild arthritis at the right hip joint. Bones of the pelvis are unremarkable. There is soft tissue ossification adjacent to the left greater trochanter and soft tissue arterial calcification. XR/XR hip LT w [id number] IMPRESSION: Satisfactory appearance of left hip replacement.
== END 2020-03-27 14:33 | disposition home or self-care (01) ==
LOC: HO.HOSX 14:32
PROVIDERS: Visit Provider Orthopaedic Surgery
DX: M25.552 Pain in left hip (principal); Z96.642 Presence of left artificial hip joint
CPT/HCPCS: 73502

== ENCOUNTER → 2020-03-28 13:43 | Outpatient (BNVA) | payer OTHER, SELFPAY | PROVIDERS: PCP Family Medicine; Visit Provider Orthopaedic Surgery | DX: Z96.649 Presence of unspecified artificial hip joint (principal) | CPT/HCPCS: 99212 ==

== ENCOUNTER 2020-06-03 10:59 | Inpatient (IN) | payer OTHER, SELFPAY ==
--- NOTE | ~2020-06-03 | XR_ITS ---
EXAMINATION: XR HIP, RIGHT CLINICAL INFORMATION: Fall with right hip pain COMPARISON: None TECHNIQUE: AP pelvis with AP and crosstable lateral views of the right hip. FINDINGS: Technically limited study due to patient positioning. However, there is evidence of a right femoral neck fracture with impaction. The femoral head remains seated within the acetabular fossa. XR/XR hip RT w PEL1V IMPRESSION: Impacted right femoral neck fracture.
--- NOTE | ~2020-06-03 | XR_ITS ---
EXAMINATION: XR HIP, RIGHT CLINICAL INFORMATION: Postop COMPARISON: Previous x-ray June 03 2020 TECHNIQUE: Two views of the right hip. FINDINGS: There is a new right hip arthroplasty in satisfactory position. No fracture or dislocation is seen. There are postsurgical changes to the soft tissues. Bones of the visualized pelvis are unremarkable. Left hip arthroplasty appears unchanged. XR/XR hip RT w PEL1V IMPRESSION: Satisfactory appearance of right hip arthroplasty.
--- NOTE | ~2020-06-03 | CT_ITS ---
EXAMINATION: CT HEAD WITHOUT CONTRAST CT CERVICAL SPINE WITHOUT CONTRAST CLINICAL INFORMATION: Fall with head injury and neck pain COMPARISON: Head CT 04/18/2019 TECHNIQUE: A noncontrast CT of the head and a noncontrast CT of the cervical spine with sagittal and coronal reformats. This CT examination was performed using dose optimization techniques as appropriate, variously including the following: *Automated exposure control *Adjustment of mA and/or kV according to patient size (this includes techniques or standardized protocols for targeted exams where dose is matched to indication/reason for exam; i.e. extremities or head) *Use of iterative reconstruction technique DLP: 919 FINDINGS: No intra-axial or extra-axial hemorrhage. No acute territorial infarct. 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 Chronic right high frontal infarct. Generalized atrophy with prominence of the ventricles. Preservation of francis-white matter differentiation. No mass, mass effect, or midline shift. No fracture. The mastoid air cells and visualized paranasal sinuses are clear. Normal alignment of the cervical spine. No fracture. No prevertebral soft tissue swelling. Mild multilevel degenerative disc disease, with prominent degenerative change at the anterior atlantoaxial junction. CT/CT head/brain wo con IMPRESSION: No acute intracranial abnormality. Chronic findings as above, unchanged. No cervical spine fracture or traumatic subluxation.
--- NOTE | ~2020-06-03 | XR_ITS ---
EXAMINATION: XR CHEST CLINICAL INFORMATION: History of fall. Chest pain. COMPARISON: Chest done on 09/20/2018. TECHNIQUE: Frontal view of the chest was obtained. FINDINGS: Mild diffuse prominent bronchovascular markings are present, appear similar to prior study consistent with chronic changes. No evidence of any superimposed dense airspace consolidation, hemopneumothorax or lung contusion displaced rib fracture identified. The cardiac mediastinal silhouette is within normal limit. The visualized upper abdomen is unremarkable. XR/XR chest 1V IMPRESSION: No radiographic evidence of any displaced rib fracture or hemopneumothorax.
--- NOTE | ~2020-06-03 | CT_ITS ---
EXAMINATION: CT HEAD WITHOUT CONTRAST CT CERVICAL SPINE WITHOUT CONTRAST CLINICAL INFORMATION: Fall with head injury and neck pain COMPARISON: Head CT 04/18/2019 TECHNIQUE: A noncontrast CT of the head and a noncontrast CT of the cervical spine with sagittal and coronal reformats. This CT examination was performed using dose optimization techniques as appropriate, variously including the following: *Automated exposure control *Adjustment of mA and/or kV according to patient size (this includes techniques or standardized protocols for targeted exams where dose is matched to indication/reason for exam; i.e. extremities or head) *Use of iterative reconstruction technique DLP: 919 FINDINGS: No intra-axial or extra-axial hemorrhage. No acute territorial infarct. 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 Chronic right high frontal infarct. Generalized atrophy with prominence of the ventricles. Preservation of francis-white matter differentiation. No mass, mass effect, or midline shift. No fracture. The mastoid air cells and visualized paranasal sinuses are clear. Normal alignment of the cervical spine. No fracture. No prevertebral soft tissue swelling. Mild multilevel degenerative disc disease, with prominent degenerative change at the anterior atlantoaxial junction. CT/CT cervical spine wo con IMPRESSION: No acute intracranial abnormality. Chronic findings as above, unchanged. No cervical spine fracture or traumatic subluxation.
[2020-06-03 11:07] VITALS: BP 138/74; BP 147/76; PULSE 78; PULSE 80; RESP 16; TEMP 36.6; O2SAT 98; O2SAT 99; BMI 22.1
[2020-06-03] MEDS: Morphine Sulfate 4 MG/ML CARTRIDGE 2 MG IVPUSH (12:32)
[2020-06-03] MEDS: Bacitracin Oint 0.9 GM PACKET 1 APPL TOPICAL (12:32)
[2020-06-03] MEDS: ondansetron HCL 4 MG/2 ML VIAL IVPUSH (12:32)
[2020-06-03 12:35] LABS: MANUAL DIFF FLAG NO
[2020-06-03 12:37] LABS: Basophils Percent Auto 0.3 % (0-2); Eosinophils Absolute Auto 0.2 X10*3/uL (0.0-0.4); Eosinophils Percent Auto 1.7 % (0-4); Hematocrit 38.5 % (37-47); Imm Gran Abs Auto 0.09 X10*3/uL (0.00-0.03); Lymphocytes Absolute Auto 1.1 X10*3/uL (1.2-4.9); Lymphocytes Percent Auto 12.6 % (20-40); Mean Corpuscular HGB Conc 31.2 g/dl (31.0-35.0); Mean Corpuscular Hemoglobin 26.4 pg (27.0-33.0); Mean Corpuscular Volume 84.6 fL (80-98); Mean Platelet Volume 12.6 fL (9.4-12.3); Monocytes Absolute Auto 0.4 X10*3/uL (0.1-1.2); Monocytes Percent Auto 4.7 % (2-11); Neutrophils Absolute Auto 7.2 X10*3/uL (2.0-8.3); Neutrophils Percent Auto 79.7 % (45-73); Platelet Count 172 X10*3/uL (160-400); Red Blood Count 4.55 X10*6/uL (4.20-5.50); Red Cell Distribution Width 13.3 % (11.0-16.0); White Blood Count 9.1 X10*3/uL (4.8-10.8)
[2020-06-03 12:55] LABS: COVID-19 Test Negative (Negative); IDNOW Serial# 9DD0AD1C
--- NOTE | 2020-06-03 12:58 | PC.NURSE ---
CT STAFF RETURNING PT TO ROOM AFTER PT WAS UNCOOPERATIVE DURING PROCESS.
--- NOTE | 2020-06-03 13:49 | PC.NURSE ---
PT COMBATIVE DURING ATTEMPT TO REDRAW BLOODWORK. BECOMING INCREASINGLY AGITATED, AWARE.
[2020-06-03] MEDS: Haloperidol Lactate 5 MG/ML VIAL 2 MG IVPUSH (13:52)
[2020-06-03 15:02] VITALS: BP 148/58; PULSE 83; RESP 18; O2SAT 97
--- NOTE | 2020-06-03 15:30 | ED_ITS ---
HPI - General Adult General Chief complaint: Fall Stated complaint: FALL W/HEAD STRIKE AND R HIP PAIN Time Seen by Provider: 06/03/20 11:33 Source: EMS and RN notes reviewed Mode of arrival: EMS Limitations: language barrier (Nepali speaking only) and altered mental status (Dementia) History of Present Illness HPI narrative: 79-year-old female who was sent to the emergency department by ambulance for evaluation of injuries sustained after a fall at home. To EMS report and ED nurse notes, the patient had a mechanical fall while standing in the bathroom at home. The fall was witnessed by the patient's daughter. The patient had a light strike of her head with no loss of consciousness. After the fall, the patient complained of pain in her right hip and she sustained an abrasion to her right elbow. No other history reported by EMS. The contact phone numbers listed in the medical record are incorrect therefore I was not able to give more information from the patient's family. Related Data Home Medications Medication Instructions Recorded Confirmed amlodipine 5 mg PO DAILY 02/01/20 06/03/20 baclofen 2.5 mg PO BID PRN 02/01/20 06/03/20 melatonin 3 mg PO BEDTIME 02/01/20 06/03/20 metformin 500 mg PO DAILY 02/01/20 06/03/20 quetiapine 50 mg PO BEDTIME 02/01/20 06/03/20 rosuvastatin 5 mg PO DAILY 02/01/20 06/03/20 acetaminophen 650 mg PO Q8H PRN 06/03/20 06/03/20 docusate sodium 1 cap PO BID 06/03/20 06/03/20 lamotrigine 25 mg PO BID 06/03/20 06/03/20 lisinopril 20 mg PO QAM 06/03/20 06/03/20 sennosides [senna] 2 tab PO DAILY PRN 06/03/20 06/03/20 Previous Rx's Medication Instructions Recorded aspirin 325 mg PO BID 42 Days #84 tab 02/06/20 docusate sodium [Colace] 100 mg PO DAILY #30 cap 02/08/20 Allergies Allergy/AdvReac Type Severity Reaction Status Date / Time penicillin V Allergy Unknown Rash Verified 06/03/20 11:14 Penicillins [PENICILLINS] Allergy Unknown RASH Verified 06/03/20 11:14 Review of Systems Review of Systems: Yes Unobtainable due to mental status (Dementia) [facility] Past Medical History [facility] Narrative: The patient has a history of dementia and status post left hip hemo arthroplasty. She lives at home with her family, she does not smoke cigarettes, drink alcohol or use drugs. Medical History (Updated 06/03/20 @ 16:05 by Dane Watkins MD) Acute hip pain Dementia Dyslipidemia Essential hypertension Fall Hip fracture History of benign brain tumor Seizure disorder Type 2 diabetes mellitus Surgical History History of delivery History of cholecystectomy History of craniotomy Social History Social History Household Members: Family Housing: Apartment Smoking Status: Never smoker Second Hand Smoke Exposure: No Advance Directives: No Advance Directives Information Provided: Yes service: No Current occupational status: retired Physical Exam Vital Signs: Vital Signs: Last Vital Signs Temp 97.8 F 06/03/20 11:07 Pulse 83 06/03/20 15:02 Resp 18 06/03/20 15:02 BP 148/58 H 06/03/20 15:02 Pulse Ox 97 06/03/20 15:02 Body Mass Index 22.1 Const: General: cooperative Orientation/consciousness: oriented to person Limitations: no limitations HENMT: Head: Yes normal to inspection, Yes normocephalic and Yes atraumatic Ears: external ears normal General nose exam: Normal external nose present Face and sinus: Yes normal facial exam Mouth: Normal oral and palatal mucosa present Throat: Yes posterior oropharynx normal Eyes: Periorbital: periorbital findings normal Eyelids: Yes eyelids normal Conjunctivae: conjunctivae normal Sclerae: sclerae normal Corneas: corneas normal Pupils: Equal, round and reactive pupils present Direct Ophthalmoscopy: normal light reflex Neck: Neck: Yes full ROM, Yes no lymphadenopathy, Yes no meningeal signs, Yes trachea midline and Yes supple Chest: Chest palpation & inspection: normal inspection of the chest and normal palpation of entire chest wall Resp: Effort & Inspection: normal respiratory effort and able to speak in complete sentences Auscultation: clear to auscultation bilaterally Cardio: Rate: regular rate Rhythm: regular rhythm Heart sounds: S1 normal heart sound present, S2 normal heart sound present and no murmurs GI: Inspection: Yes normal to inspection Palpation (GI): Soft to palpation, nontender, no guarding, not rigid and No hepatosplenomegaly present : General: Yes no CVA tenderness Back/Spine/Pelvis: Back: no CVA tenderness Cervical Spine: normal cervical lordosis Thoracic/Lumbar Spine: thoracic and lumbar spine normal to inspection Skin: Lesions: no lesions Rashes: no rashes Wounds: no wounds Neuro: General: oriented to person and no meningeal signs Cranial nerves: Yes CN's II-XII intact bilaterally and Yes Equal, round and reactive pupils present Cognition (Neuro): normal cognition Extrem: Other: Pain with minimal movement of the right hip, superficial abrasion to right elbow, full range of motion of elbow with no pain. General: Yes normal to inspection Psych: Appearance: well kempt Speech and movement: Normal speech and movement present Course Course Course Narrative: 79-year-old female with history of dementia, diabetes mellitus, hypertension, hyperlipidemia, seizure disorder who presents emergency department for evaluation of injuries after a witnessed fall at home. The patient's physical examination is consistent with a right hip fracture. I did order a CBC, CMP, PT/INR, PTT, urinalysis, COVID-19 test, type and screen, chest x-ray, CT scan of the head and cervical spine, right hip and pelvis. Patient was ordered to get morphine 2 mg IV and Zofran 4 mg IV. 1541: There was a delay in completing this workup since the patient was agitated and eventually received Haldol 2 mg IV which allowed us to complete the diagnostic workup. The patient's right hip and pelvis reveal a impacted femoral neck fracture. CT scan of the brain and cervical spine was negative. Chest x-ray revealed no acute process. urinalysis was negative. I did discuss the patient's presentation with the orthopedic physician welder assistant, Amy Blair. She agreed to consult on the patient and recommended that the patient be admitted to the hospitalist service for medical clearance and medical man agement. 1604: Patient's chemistries and type and screen need to be redrawn. I will discuss the patient's admission with the covering hospitalist. 1617: I did discuss Dr. Dawson and the patient will be admitted to the hospital service for further treatment. Medical Decision Making Lab Data Result diagrams: 06/03/20 12:30 06/03/20 12:30 Labs: Lab Results 06/03/20 06/03/20 Range/Units 12:30 12:30 WBC 9.1 (4.8-10.8) X10*3/uL RBC 4.55 (4.20-5.50) X10*6/uL Hgb 12.0 (12.0-16.0) g/dl Hct 38.5 (37-47) % MCV 84.6 (80-98) fL MCH 26.4 L (27.0-33.0) pg MCHC 31.2 (31.0-35.0) g/dl RDW 13.3 (11.0-16.0) % Plt Count 172 D (160-400) X10*3/uL MPV 12.6 H (9.4-12.3) fL Immature Gran % (Auto) 1.0 H (0.0-0.4) % Neut % (Auto) 79.7 H (45-73) % Lymph % (Auto) 12.6 L (20-40) % [place] % (Auto) 4.7 (2-11) % Eos % (Auto) 1.7 (0-4) % Baso % (Auto) 0.3 (0-2) % Lymph # (Auto) 1.1 L (1.2-4.9) X10*3/uL [place] # (Auto) 0.4 (0.1-1.2) X10*3/uL Eos # (Auto) 0.2 (0.0-0.4) X10*3/uL Baso # (Auto) 0.0 (0.0-0.2) X10*3/uL Abs Immat Gran (auto) 0.09 H (0.00-0.03) X10*3/uL Absolute Neuts (auto) 7.2 (2.0-8.3) X10*3/uL Absolute Nucleated RBC 0.000 (0.0-0.012) X10*3/uL Nucleated RBC % (auto) 0.0 (0.0-0.2) /100WBC COVID-19 ([facility]) Negative (Negative) COVID-19 Clin Com See Note Discharge Plan Discharge Clinical Impression: Closed fracture of neck of right femur Qualifiers: Encounter type: initial encounter Qualified Code(s): S72.001A - Fracture of unspecified part of neck of right femur, initial encounter for closed fracture Fall Qualifiers: Encounter type: initial encounter Qualified Code(s): W19.XXXA - Unspecified fall, initial encounter Patient Disposition: Admitted As Inpatient
[2020-06-03] MEDS: Morphine Sulfate 4 MG/ML CARTRIDGE IVPUSH (15:46)
--- NOTE | 2020-06-03 16:14 | PC.NURSE ---
waiting on phlebotomy for blooddraw, as pt is tough stick.
[2020-06-03 16:28] LABS: Glucose Urine UA NEG (NEG); Leukocyte Esterase Urine NEG (NEG); Nitrite Urine NEG (NEG); Urine Blood NEG (NEG); Urine Ketones NEG (NEG); Urine Protein NEG (NEG-TRACE)
--- NOTE | 2020-06-03 16:28 | PC.NURSE ---
CASSIDY DAUGHTER [phone] UPDATED ON PLAN FOR CARE. PT CALM AT THIS TIME.
[2020-06-03 16:29] LABS: Appearance Urine HAZY; Color Urine STRAW
[2020-06-03 17:20] VITALS: BP 150/51; PULSE 87; RESP 16; TEMP 37.1; O2SAT 94
[2020-06-03 17:30] LABS: Prothrombin Time 11.8 SEC (10.8-13.0)
[2020-06-03 17:33] LABS: Partial Thromboplastin Time 39.2 SEC (24.1-38.0)
[2020-06-03 18:04] LABS: Alanine Aminotransferase 21 U/L (0-31); Albumin Level 4.2 g/dL (3.5-5.0); Alkaline Phosphatase 105 U/L (39-117); Anion Gap 17 (12-20); Aspartate Amino Transferase 20 U/L (5-31); Bilirubin Total 0.3 mg/dL (0.0-1.0); Blood Urea Nitrogen 16 mg/dL (9-16); Calcium 9.3 mg/dL (8.4-10.2); Carbon Dioxide 23 mmol/L (22-29); Chloride 106 mmol/L (96-108); Creatinine Clr Calc Pharmacy 50.7; Estimated Glomerular Filt Rate 59; Glucose Random 157 mg/dL (60-115); Potassium 4.4 mmol/L (3.3-5.1); Sodium 142 mmol/L (135-145); Total Protein 7.4 g/dL (6.5-8.0)
--- NOTE | 2020-06-03 18:08 | PC.NURSE ---
pt resting calmly, comfortably. seen by hospitalist. phlebotomy to be arriving for a secondary attempt at a T&S
[2020-06-03 18:21] LABS: Lipase 40 U/L (8-78)
--- NOTE | 2020-06-03 18:37 | PC.NURSE ---
CALLED UP TO MED SURG TO GIVE REPORT, EXPECTING CALL BACK
[2020-06-03 19:35] VITALS: BP 172/73; PULSE 103; RESP 18; TEMP 37.3; O2SAT 93
--- NOTE | 2020-06-03 20:18 | HP_ITS ---
DATE OF SERVICE: 06/03/2020 CHIEF COMPLAINT: Fall with right hip pain and head strike. HISTORY OF PRESENTING ILLNESS: This is an 79-year-old female patient with past medical history significant for type 2 diabetes mellitus, hypertension, hyperlipidemia, seizure disorder, status post excision of benign brain tumor, and history of dementia. The patient was sent to the emergency room by ambulance for evaluation of fall at home. As per the EMS report since the patient is unable to provide history and unable to reach family via phone, the patient had a mechanical fall while standing in the bathroom, witnessed by the patient's daughter. The patient had a light strike of her head with no loss of consciousness. After the fall, the patient complained of right hip pain. She has sustained right elbow abrasions. In the emergency room, workup showed right femoral neck impacted fracture. Orthopedic physician was consulted and recommended to admit the patient to medical service and they will see the patient in consult. 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 REVIEW OF SYSTEMS: Unable to obtain secondary to underlying dementia. PAST MEDICAL HISTORY: 1. History of dementia. 2. History of dyslipidemia. 3. History of essential hypertension. 4. History of benign brain tumor. 5. History of seizure disorder. 6. History of type 2 diabetes mellitus. 7. History of fall in the past with left hip fracture, status post surgery in January 2020. SOCIAL HISTORY: The patient lives at home with her daughter. As per old records, there is no history of smoking. FAMILY HISTORY: The patient unable to provide. ALLERGIES: THE PATIENT IS ALLERGIC TO PENICILLIN THAT CAUSES A RASH. HOME MEDICATIONS: Amlodipine 5 mg daily, Tylenol 650 q.6-8 hours as needed, aspirin 325 b.i.d., baclofen 2.5 mg b.i.d. as needed, Colace 1 capsule b.i.d., lamotrigine 25 mg b.i.d., lisinopril 20 mg at morning, melatonin 3 mg at bedtime, metformin 500 daily, Seroquel 50 mg at bedtime, rosuvastatin 5 mg daily, and senna 2 tablets by mouth daily as needed. PHYSICAL EXAMINATION: GENERAL: The patient is resting in bed. At times becomes combative. Has received 1 dose of Haldol and morphine in the ER. HEENT: Pupils equal, round, and reactive to light and accommodation. NECK: Supple. No JVD. There is no lymphadenopathy noted. LUNGS: Clear to auscultation bilaterally. The patient is speaking in full sentences with no shortness of breath or use of accessory muscle. HEART: Regular rate and rhythm. ABDOMEN: Soft. Nontender. Bowel sounds are audible. EXTREMITIES: Without clubbing, cyanosis, or edema. The patient has pain with minimal movement of right hip. There is a superficial abrasion to right elbow noted. Full range of motion noted at right elbow. NEURO: The patient is moving all 4 extremities. Speech is clear. ASSESSMENT AND PLAN: This is an 79-year-old female patient, who was brought into [facility] after a witnessed fall at home. The patient has been diagnosed to have right femoral neck fracture, will be admitted for continued monitoring and treatment. PROBLEM LIST: 1. Right hip fracture. We will obtain Ortho consult. Keep her n.p.o. after midnight. The patient is being placed on oxycodone, morphine, and Tylenol for pain control. 2. Hypertension. Blood pressure is elevated. We will continue home medication, lisinopril, and amlodipine. 3. History of hyperlipidemia. We will continue statin. 4. History of diabetes mellitus. We will hold metformin. We will place her on diabetic diet and correction insulin sliding scale. 5. History of seizure disorder. Continue lamotrigine. 6. History of dementia. The patient will be continued on Seroquel. 7. Disposition. Depending on Orthopedic Surgery and PT eval. 8. For DVT prophylaxis, we will place the patient on compression boots. 9. Code status. Unable to reach family, but as per previous records in January 2020, the patient was full code per discussion with her daughter. I called the patient's daughter, Linn at phone #[phone]. Answer machine was connected with unknown name, therefore no message was left. MD SABAS Carroll/MERCEDES / [id number]
[2020-06-03] MEDS: 0.9 % Sodium Chloride Flush 3 ML SYRINGE IVFLUSH (20:55)
[2020-06-03] MEDS: lamoTRIgine 25 MG TABLET PO (20:55)
[2020-06-03] MEDS: QUEtiapine Fumarate 50 MG TABLET PO (20:55)
[2020-06-03 23:40] VITALS: BP 129/57; PULSE 97; RESP 19; TEMP 36.7; O2SAT 97
[2020-06-04] VITALS (11 sets, daily range): BP systolic 130–153; BP diastolic 55–73; PULSE 80–102; RESP 16–20; TEMP 36.4–37.2; O2SAT 92–99
--- NOTE | 2020-06-04 07:27 | PM.HPOR ---
History of Present Illness History of Present Illness Date of Service: 06/04/20 Chief complaint: right hip pain Narrative: Suzanne Sam is a 79 year old female with PMH significant for dementia who presented to the ED yesterday evening after sustaining a fall. After the fall she had immediate right hip pain and was unable to ambulate. She presented to the ED via EMS where x-rays where obtained and she was found to have a right hip impacted femoral neck fracture. The patient is unable to recall any events surrounding the fall unfortunately. The patient was admitted to the hospitalist service and orthopedics was consulted for further evaluation and treatment. Review of Systems Review of Systems: Yes all other systems are reviewed and are negative PMFSH Past Medical History Medical History (Updated 06/03/20 @ 16:05 by Dane Watkins MD) Acute hip pain Dementia Dyslipidemia Essential hypertension Fall Hip fracture History of benign brain tumor Seizure disorder Type 2 diabetes mellitus Surgical History Surgical History History of delivery History of cholecystectomy History of craniotomy Social History Social History Household Members: Family Housing: Apartment Do you presently have visiting nurse or other home services: No Smoking Status: Never smoker Second Hand Smoke Exposure: No Use of substances other than those prescribed or required for medical reasons: No Currently Displaying Signs/Symptoms of Drug Intoxication Withdrawal: No Have you been hit, kicked, punched, or otherwise hurt by someone within the past year? If so, by whom?: No Do you feel safe in your current relationship?: Yes Is there a partner from a previous relationship who is making you feel unsafe now?: No Are you made to feel afraid or neglected: No Advance Directives: Yes Advance Directives on File: Yes Advance Directives Date on File: 02/09/20 Do you have thoughts of harming others: None Do you have a plan to hurt others: No Plan Recently lost weight without trying: No service: No Current occupational status: retired Meds Allergies Allergy/AdvReac Type Severity Reaction Status Date / Time penicillin V Allergy Unknown Rash Verified 06/03/20 11:14 Penicillins [PENICILLINS] Allergy Unknown RASH Verified 06/03/20 11:14 Active Medications: Current Medications Generic Name Dose Route Start Last Admin Trade Name Freq PRN Reason Stop Dose Admin Acetaminophen 650 mg 06/03/20 18:16 Acetaminophen 325 Mg Tablet PO Q6H PRN Pain, Mild (Pain Scale 1-3) Amlodipine Besylate 5 mg 06/04/20 09:00 Amlodipine Besylate 5 Mg Tablet PO DAILY [facility] Protocol Baclofen 2.5 mg 06/03/20 18:36 Baclofen 10 Mg Tablet PO BID PRN muscle spasm Docusate Sodium 100 mg 06/04/20 09:00 Docusate Sodium 100 Mg Capsule PO DAILY [facility] Cefazolin Sodium/Dextrose 2 gm in 50 mls @ 100 mls/hr 06/04/20 13:30 Ancef IV 06/04/20 13:59 PREOP ONE Lactated Ringer's 1,000 mls @ 80 mls/hr 06/04/20 07:30 Lr IVCONT .[id number] [facility] Insulin Human Lispro 0 unit 06/04/20 07:30 Insulin Lispro 100 Unit/Ml 3 Ml Vial SUBCUT Q6H [facility] Protocol Lamotrigine 25 mg 06/03/20 21:00 06/03/20 20:55 Lamotrigine 25 Mg Tablet PO 25 mg BID [facility] Administration Lisinopril 20 mg 06/04/20 09:00 Lisinopril 20 Mg Tablet PO DAILY [facility] Protocol Morphine Sulfate 3 mg 06/03/20 18:36 Morphine Sulfate 4 Mg/Ml Cartridge IVPUSH Q4H PRN Pain, Severe (Pain Scale 7-10) Ondansetron HCl 4 mg 06/03/20 18:36 Ondansetron Hcl 4 Mg/2 Ml Vial IVPUSH Q8H PRN Nausea and Vomiting Oxycodone HCl 5 mg 06/03/20 18:36 Oxycodone Hcl Immed Release 5 Mg Tablet PO Q6H PRN Pain, Severe (Pain Scale 7-10) Pharmacy Consult 1 each 06/03/20 15:26 Consult Rx Perform Med Rec MISCELLANE ONCE PRN Consult order Quetiapine Fumarate 50 mg 06/03/20 21:00 06/03/20 20:55 Quetiapine Fumarate 50 Mg Tablet PO 50 mg BEDTIME [facility] Administration Sodium Chloride 3 ml 06/04/20 00:00 06/03/20 20:55 0.9 % Sodium Chloride Flush 3 Ml Syringe IVFLUSH 3 ml QSHIFT [facility] Administration Home Medications Medication Instructions Recorded Confirmed Last Taken Type amlodipine 5 mg PO DAILY 02/01/20 06/03/20 Unknown History baclofen 2.5 mg PO BID PRN 02/01/20 06/03/20 Unknown History melatonin 3 mg PO BEDTIME 02/01/20 06/03/20 Unknown History metformin 500 mg PO DAILY 02/01/20 06/03/20 Unknown History quetiapine 50 mg PO BEDTIME 02/01/20 06/03/20 Unknown History rosuvastatin 5 mg PO DAILY 02/01/20 06/03/20 Unknown History acetaminophen 650 mg PO Q8H PRN 06/03/20 06/03/20 Unknown History docusate sodium 1 cap PO BID 06/03/20 06/03/20 Unknown History lamotrigine 25 mg PO BID 06/03/20 06/03/20 Unknown History lisinopril 20 mg PO QAM 06/03/20 06/03/20 Unknown History sennosides [senna] 2 tab PO DAILY PRN 06/03/20 06/03/20 Unknown History Physical Exam Vital Signs: Vital Signs: Last Vital Signs Temp 98.6 F 06/04/20 07:13 Pulse 82 06/04/20 07:13 Resp 19 06/04/20 07:13 BP 131/58 L 06/04/20 07:13 Pulse Ox 99 06/04/20 07:13 Body Mass Index 22.1 Const: General: cooperative, healthy appearing, comfortable, no acute distress, well developed, alert and awake Orientation/consciousness: patient oriented x3 HENMT: Head: Yes normal to inspection, Yes normocephalic and Yes atraumatic Eyes: General: appearance normal, both eyes and all related structures Neck: Neck: Yes normal visual inspection and Yes no lymphadenopathy Resp: Effort & Inspection: normal respiratory effort and able to speak in complete sentences Cardio: Rate: regular rate Peripheral pulses: Peripheral pulses 2+ throughout GI: Inspection: Yes normal to inspection Palpation (GI): Soft to palpation Skin: General skin exam: no rashes or lesions noted Neuro: General: patient oriented x3 Extrem: Other: Right hip skin intact. Leg is shortened and externally rotated. Pain with log roll. Unable to perform a striaght leg raise. Able to plantarflex and dorsiflex. Pedal pulse intact. Psych: Mental Status: mental status grossly normal Results Labs Result Diagrams: 06/03/20 12:30 06/03/20 17:15 Labs: Abnormal lab results 06/03/20 06/03/20 06/03/20 Range/Units 12:30 17:15 17:15 MCH 26.4 L (27.0-33.0) pg MPV 12.6 H (9.4-12.3) fL Immature Gran % (Auto) 1.0 H (0.0-0.4) % Neut % (Auto) 79.7 H (45-73) % Lymph % (Auto) 12.6 L (20-40) % Lymph # (Auto) 1.1 L (1.2-4.9) X10*3/uL Abs Immat Gran (auto) 0.09 H (0.00-0.03) X10*3/uL APTT 39.2 H (24.1-38.0) SEC Random Glucose 157 H (60-115) mg/dL H & H 06/03/20 Range/Units 12:30 Hgb 12.0 (12.0-16.0) g/dl Hct 38.5 (37-47) % Coagulation 06/03/20 Range/Units 17:15 INR 1.0 (0.9-1.1) All other labs normal. Assessment and Plan (1) Closed fracture of neck of right femur: Qualifiers: Encounter type: initial encounter Qualified Code(s): S72.001A - Fracture of unspecified part of neck of right femur, initial encounter for closed fracture Status: Acute I discussed the case with Dr. Haley and explained the extent of the injury to the patient and her HCP Gabbie about the options available which include surgical intervention. I explained the procedure in detail along with the length of recovery and rehab course. I explained the risk, benefits and alternatives. Risk including, but not limited to infection, blood clots, bleeding, non union or malunion and nerve/tissue damage to surrounding areas. I answered all their questions and with their understanding they have consented to move forward with Operative Fixation of the right hip. The patient will be T&S, med clearance obtained and NPO after midnight. Daughter Gabbie's phone number is [phone]
[2020-06-04 08:00] LABS: Glucose, Whole Blood 130 mg/dL (60-115)
--- NOTE | 2020-06-04 08:02 | P.CONAN_ITS ---
[facility] Active Problems Active Problems: All Active Problems (Updated 06/03/20 @ 16:05 by Dane burton MD) Closed fracture of neck of right femur (Acute) Fall (Acute) S/P hip hemiarthroplasty (Acute) Dementia (Acute) Past Medical History Medical History Acute hip pain Dementia Dyslipidemia Essential hypertension Fall Hip fracture History of benign brain tumor Seizure disorder Type 2 diabetes mellitus Surgical History Surgical History History of delivery History of cholecystectomy History of craniotomy Social History Social History Household Members: Family Housing: Apartment Do you presently have visiting nurse or other home services: No Smoking Status: Never smoker Second Hand Smoke Exposure: No Use of substances other than those prescribed or required for medical reasons: No Currently Displaying Signs/Symptoms of Drug Intoxication Withdrawal: No Have you been hit, kicked, punched, or otherwise hurt by someone within the past year? If so, by whom?: No Do you feel safe in your current relationship?: Yes Is there a partner from a previous relationship who is making you feel unsafe now?: No Are you made to feel afraid or neglected: No Advance Directives: Yes Advance Directives on File: Yes Advance Directives Date on File: 02/09/20 Do you have thoughts of harming others: None Do you have a plan to hurt others: No Plan Recently lost weight without trying: No service: No Current occupational status: retired Meds Allergies Allergy/AdvReac Type Severity Reaction Status Date / Time penicillin V Allergy Unknown Rash Verified 06/03/20 11:14 Penicillins [PENICILLINS] Allergy Unknown RASH Verified 06/03/20 11:14 Active Medications: Current Medications Generic Name Dose Route Start Last Admin Trade Name Freq PRN Reason Stop Dose Admin Acetaminophen 650 mg 06/03/20 18:16 Acetaminophen 325 Mg Tablet PO Q6H PRN Pain, Mild (Pain Scale 1-3) Amlodipine Besylate 5 mg 06/04/20 09:00 Amlodipine Besylate 5 Mg Tablet PO DAILY [facility] Protocol Baclofen 2.5 mg 06/03/20 18:36 Baclofen 10 Mg Tablet PO BID PRN muscle spasm Docusate Sodium 100 mg 06/04/20 09:00 Docusate Sodium 100 Mg Capsule PO DAILY [facility] Cefazolin Sodium/Dextrose 2 gm in 50 mls @ 100 mls/hr 06/04/20 13:30 Ancef IV 06/04/20 13:59 PREOP ONE Lactated Ringer's 1,000 mls @ 80 mls/hr 06/04/20 07:30 Lr IVCONT .[id number] [facility] Insulin Human Lispro 0 unit 06/04/20 07:30 Insulin Lispro 100 Unit/Ml 3 Ml Vial SUBCUT Q6H [facility] Protocol Lamotrigine 25 mg 06/03/20 21:00 06/03/20 20:55 Lamotrigine 25 Mg Tablet PO 25 mg BID [facility] Administration Lisinopril 20 mg 06/04/20 09:00 Lisinopril 20 Mg Tablet PO DAILY [facility] Protocol Morphine Sulfate 3 mg 06/03/20 18:36 Morphine Sulfate 4 Mg/Ml Cartridge IVPUSH Q4H PRN Pain, Severe (Pain Scale 7-10) Ondansetron HCl 4 mg 06/03/20 18:36 Ondansetron Hcl 4 Mg/2 Ml Vial IVPUSH Q8H PRN Nausea and Vomiting Oxycodone HCl 5 mg 06/03/20 18:36 Oxycodone Hcl Immed Release 5 Mg Tablet PO Q6H PRN Pain, Severe (Pain Scale 7-10) Pharmacy Consult 1 each 06/03/20 15:26 Consult Rx Perform Med Rec MISCELLANE ONCE PRN Consult order Quetiapine Fumarate 50 mg 06/03/20 21:00 06/03/20 20:55 Quetiapine Fumarate 50 Mg Tablet PO 50 mg BEDTIME [facility] Administration Sodium Chloride 3 ml 06/04/20 00:00 06/03/20 20:55 0.9 % Sodium Chloride Flush 3 Ml Syringe IVFLUSH 3 ml QSHIFT [facility] Administration Home Medications Medication Instructions Recorded Confirmed Last Taken Type amlodipine 5 mg PO DAILY 02/01/20 06/03/20 Unknown History baclofen 2.5 mg PO BID PRN 02/01/20 06/03/20 Unknown History melatonin 3 mg PO BEDTIME 02/01/20 06/03/20 Unknown History metformin 500 mg PO DAILY 02/01/20 06/03/20 Unknown History quetiapine 50 mg PO BEDTIME 02/01/20 06/03/20 Unknown History rosuvastatin 5 mg PO DAILY 02/01/20 06/03/20 Unknown History acetaminophen 650 mg PO Q8H PRN 06/03/20 06/03/20 Unknown History docusate sodium 1 cap PO BID 06/03/20 06/03/20 Unknown History lamotrigine 25 mg PO BID 06/03/20 06/03/20 Unknown History lisinopril 20 mg PO QAM 06/03/20 06/03/20 Unknown History sennosides [senna] 2 tab PO DAILY PRN 06/03/20 06/03/20 Unknown History Exam Exam Date and Time: June 04, 2020 0802 Height,Weight and Vital Signs: Height 5 ft 9 in Weight 68 kg Last Vital Signs Temp 98.6 F 06/04/20 07:13 Pulse 82 06/04/20 07:13 Resp 19 06/04/20 07:13 BP 131/58 L 06/04/20 07:13 Pulse Ox 99 06/04/20 07:13 Pertinent Lab Results Pertinent Lab Results: Laboratory Tests 06/03/20 06/03/20 06/03/20 12:30 12:30 16:14 WBC 9.1 RBC 4.55 Hgb 12.0 Hct 38.5 MCV 84.6 MCH 26.4 L MCHC 31.2 RDW 13.3 Plt Count 172 D MPV 12.6 H Immature Gran % (Auto) 1.0 H Neut % (Auto) 79.7 H Lymph % (Auto) 12.6 L [place] % (Auto) 4.7 Eos % (Auto) 1.7 Baso % (Auto) 0.3 Lymph # (Auto) 1.1 L [place] # (Auto) 0.4 Eos # (Auto) 0.2 Baso # (Auto) 0.0 Abs Immat Gran (auto) 0.09 H Absolute Neuts (auto) 7.2 Absolute Nucleated RBC 0.000 Nucleated RBC % (auto) 0.0 PT INR APTT Sodium Potassium Chloride Carbon Dioxide Anion Gap BUN Creatinine Estim Creat Clear Calc Estimated GFR POC Glucose Random Glucose Calcium Total Bilirubin AST ALT Alkaline Phosphatase Total Protein Albumin Lipase Urine Color STRAW Urine Appearance HAZY Urine pH 7.0 Ur Specific [place] 1.020 Urine Protein NEG Urine Glucose (UA) NEG Urine Ketones NEG Urine Blood NEG Urine Nitrite NEG Ur Leukocyte Esterase NEG COVID-19 (SUZANNE) Negative COVID-19 [employer] Com See Note Blood Type Antibody Screen 06/03/20 06/03/20 06/03/20 17:15 17:15 17:15 WBC RBC Hgb Hct MCV MCH MCHC RDW Plt Count MPV Immature Gran % (Auto) Neut % (Auto) Lymph % (Auto) [place] % (Auto) Eos % (Auto) Baso % (Auto) Lymph # (Auto) [place] # (Auto) Eos # (Auto) Baso # (Auto) Abs Immat Gran (auto) Absolute Neuts (auto) Absolute Nucleated RBC Nucleated RBC % (auto) PT 11.8 INR 1.0 APTT 39.2 H Sodium 142 Potassium 4.4 Chloride 106 Carbon Dioxide 23 Anion Gap 17 BUN 16 Creatinine 0.91 Estim Creat Clear Calc 50.7 Estimated GFR 59 POC Glucose Random Glucose 157 H Calcium 9.3 D Total Bilirubin 0.3 AST 20 ALT 21 Alkaline Phosphatase 105 Total Protein 7.4 Albumin 4.2 Lipase 40 Urine Color Urine Appearance Urine pH Ur Specific [place] Urine Protein Urine Glucose (UA) Urine Ketones Urine Blood Urine Nitrite Ur Leukocyte Esterase COVID-19 ([facility]ZANNE) COVID-OOYYO Blood Type Antibody Screen 06/03/20 06/04/20 19:10 07:12 WBC RBC Hgb Hct MCV MCH MCHC RDW Plt Count MPV Immature Gran % (Auto) Neut % (Auto) Lymph % (Auto) [place] % (Auto) Eos % (Auto) Baso % (Auto) Lymph # (Auto) [place] # (Auto) Eos # (Auto) Baso # (Auto) Abs Immat Gran (auto) Absolute Neuts (auto) Absolute Nucleated RBC Nucleated RBC % (auto) PT INR APTT Sodium Potassium Chloride Carbon Dioxide Anion Gap BUN Creatinine Estim Creat Clear Calc Estimated GFR POC Glucose 130 H Random Glucose Calcium Total Bilirubin AST ALT Alkaline Phosphatase Total Protein Albumin Lipase Urine Color Urine Appearance Urine pH Ur Specific [place] Urine Protein Urine Glucose (UA) Urine Ketones Urine Blood Urine Nitrite Ur Leukocyte Esterase COVID-19 ([facility]ZANNE) COVID-[employer] Com Blood Type B Positive Antibody Screen NEGATIVE Airway Mallampati Class: II TM Dist: <=3cm Neck ROM: Limited Assessment and Plan Assessment Anesthesia Assessment: Anesthesia Plan Discussed and Chart Reviewed Final Anesthetic Review NPO: Yes ASA Class: III and Emergency Final Preanesthetic Review: No Changes in Pt Med Stat, Meds/Allgs Chart Reviewed, Consent Obtained/Reviewed and Anes Risks/Benef Reviewed Patient Risk: Intermediate Procedure Risk: Intermediate Assessment/Block/Sedation in SS: Assess/Block/Sedation-SS Anesthetic Plan Anesthetic Plan: GA Disposition: Standard PACU
--- NOTE | 2020-06-04 08:20 | MHC.SHP ---
Pre-Procedural Eval Section A The patient is an INPATIENT: Yes Section B Chief Complaint: right hip pain Allergies: Allergies Allergy/AdvReac Type Severity Reaction Status Date / Time penicillin V Allergy Unknown Rash Verified 06/03/20 11:14 Penicillins [PENICILLINS] Allergy Unknown RASH Verified 06/03/20 11:14 Plan I have reviewed the history and physical and performed a pertinent physical examination on my patient. No changes have occurred unless specified.
[2020-06-04] MEDS: Lactated Ringers 1,000 ML 80 ML IVCONT ×2 (08:23→11:59)
--- NOTE | 2020-06-04 08:53 | MHC.CM.PN ---
IMM 06/04/20, WMR REVIEWED, PT ADMITTED W/RIGHT HIP PAIN/FRACTURE, CM CONTACTED PT'S DAUGHTER/HCP JEFF VEE AT 0836 ([phone]) DUE TO PT'S DEMENTIA, PER DAUGHTER PT IS WALKING WITH WALKER ALTHOUGH HER LEGS ARE WEEK, PT'S OTHER DAUGHTER SHELL LIVES W/PT & AND PROVIDES CARE FOR PT, PER DAUGHTER SHE WOULD LIKE PT TO STAY IN [place] IF POSSIBLE AND REFERRALS WILL BE MADE TO [facility] PER FAMILY REQUEST. DAUGHTER REPORTS PT WAS ONLY AT [facility] AFTER A LEFT HIP FX IN FOR ABOUT A WEEK AND MOST DAYS THERE WOULD BE NO [facility] SPEAKING STAFF SO SHE PREFERS PT NOT GO THERE. PER PREVIOUS ADMIT PT DOES GO BY [facility] AND WILL BE MORE LIKELY TO RESPOND IF CALLED [facility] INSTEAD OF [facility]. DISCHARGE PLAN STR/ACTION FOR S TRANSPORT
--- NOTE | 2020-06-04 10:00 | P.OP_ITS ---
Operative Note Operative Note Date of Service: 06/04/20 Narrative: OPERATIVE PROCEDURE HEMIARTHROPLASTY SURGEON: Dr Chikis Schulte MD (Kelly) Farm Machinery Assembler: , Amy HEWITT PREOP DIAGNOSIS: SUBCAPITAL FRACTURE right HIP POSTOP DIAGNOSIS: Same OPERATIVE PROCEDURE: OPERATIVE FIXATION right HIP WITH HEMIARTHROPLASTY- ACCOLADE II SIZE 5 BY 127 DEGREE FEMORAL COMPONENT, 5 NECK SLEEVE, 46 MM UNITRAX HEAD CLINICAL NOTE: This elderly lady fell and injured her hip on the date of her admission. She had a similar injury back in January for the other hip. After explaining the risks benefits and alternatives and answering all the questions of her daughter the healthcare proxy it was mutually agreed upon to carry out the following procedure OPERATIVE DETAILS Under of general anesthetic the patient was placed supine on the operating table. The patient was then rolled into the left lateral decubitus position. The hip was then prepped and draped in standard fashion with the leg free. Surgical time-out was then performed. Patient is identified. Procedure confirmed. Site confirmed. Medical and allergy history were reviewed. Preoperative antibiotics were given. Standard DVT prophylaxis was in place. All other items discussed and agreed upon. Standard anterolateral approach to the hip was carried out. This was taken down through the subcutaneous tissues. Hemostasis was achieved along the way using electrocautery. The fascia galindo was then divided along the length of the incision. The anterior 2/3 of the abductor musculature was identified and resected as through tendon directly down onto the trochanter and off the capsule down to the level of the acetabulum. Capsulectomy was then performed. The fractured neck was delivered into the wound. The neck was then resected according to preoperative templating. The head was then removed. It measured to a 46 mm size. The acetabulum was cleared of the rest of the capsule. It was then inspected. There was no evidence of any significant wear and therefore we turned our attention to the femur. Box osteotome was used to lateralize the canal. The T Reamer was used in standard fashion. Starting with a 0 broach, the can now was sequentially reamed up to a size 5 broach. This had excellent medial and lateral fit. It had e xcellent rotational stability. A trial reduction was then performed using the 127 degree collar and the 46 mm head with the standard length. The hip was then located. It demonstrated excellent leg lengths. It had excellent stability and range of motion. Therefore the size 5 by 127 degree femoral component with the standard neck sleeve and the 46 mm Unitrax head were selected and brought onto the table. The hip was dislocated again. All the trial components were removed. The acetabulum and femur were thoroughly irrigated. The permanent femoral component was brought up onto the table. It was tapped into place with the same fit and fill as the broach had been. The Sanders taper was then cleaned and dried. The neck sleeve was placed within the head and then the 2 of them were tapped into place on the femoral component. The hip was relocated for final time. This demonstrated excellent range of motion length and stability. Therefore proceeded to closure. The wound was thoroughly irrigated. The abductor musculature was closed with 2. Dexon. The fascia galindo was closed with 2. Quill suture. The deep and superficial subcutaneous tissue approximated using 2 0 Dexon. The skin was closed with maura. The patient then had the anesthesia reversed. They were transferred supine to her own bed then taken to the recovery room in good condition. Intraoperatively there was 50 cc of blood loss. No intraop transfusions or complications.
[2020-06-04 12:08] LABS: Glucose, Whole Blood 180 mg/dL (60-115)
[2020-06-04] MEDS: ceFAZolin Sodium/Dextrose,Iso 2 GM/50 ML PIGGYBACK IV (14:17)
--- NOTE | 2020-06-04 14:30 | HO.PM.IMPN ---
Subjective Subjective Date of Service: 06/04/20 Interval History: Patient NPO is scheduled for right hip surgery, no acute overnight issues, patient remains pleasantly confused unable to provide history. Unable to obtain review of system due to baseline dementia. Physical Exam Vital Signs: Vital Signs: Last Vital Signs Temp 97.6 F 06/04/20 10:55 Pulse 82 06/04/20 10:55 Resp 20 06/04/20 10:55 BP 142/73 H 06/04/20 10:55 Pulse Ox 96 06/04/20 10:55 Body Mass Index 22.1 General resting comfortably in no acute distress. Neck supple no JVD. CVS regular rate rhythm, Respiratory lungs clear to auscultation, no respiratory distress, no wheeze, no rhonchi. Gastrointestinal abdomen soft, nontender, bowel sounds audible Extremities no edema. Neuro nonfocal , speech clear. Skin no rash Objective Data Current Medications Generic Name Dose Route Start Last Admin Trade Name Freq PRN Reason Stop Dose Admin Acetaminophen 650 mg 06/03/20 18:16 Acetaminophen 325 Mg Tablet PO Q6H PRN Pain, Mild (Pain Scale 1-3) Amlodipine Besylate 5 mg 06/04/20 09:00 06/04/20 09:41 Amlodipine Besylate 5 Mg Tablet PO Not Given DAILY [facility] Protocol Aspirin 325 mg 06/05/20 22:00 Aspirin 325 Mg Tablet PO BID [facility] Baclofen 2.5 mg 06/03/20 18:36 Baclofen 10 Mg Tablet PO BID PRN muscle spasm Docusate Sodium 100 mg 06/04/20 09:00 06/04/20 09:41 Docusate Sodium 100 Mg Capsule PO Not Given DAILY [facility] Lactated Ringer's 1,000 mls @ 80 mls/hr 06/04/20 07:30 06/04/20 11:59 Lr IVCONT 80 mls/hr .[id number] TANK Administration Cefazolin Sodium/Dextrose 2 gm in 50 mls @ 100 mls/hr 06/04/20 14:35 06/04/20 14:17 Ancef IV 06/04/20 15:04 100 mls/hr POSTOP ONE Administration Insulin Human Lispro 0 unit 06/04/20 16:30 Insulin Lispro 100 Unit/Ml 3 Ml Vial SUBCUT QIDACHS [facility] Protocol Lamotrigine 25 mg 06/03/20 21:00 06/04/20 09:42 Lamotrigine 25 Mg Tablet PO Not Given BID [facility] Lisinopril 20 mg 06/04/20 09:00 06/04/20 09:42 Lisinopril 20 Mg Tablet PO Not Given DAILY [facility] Protocol Morphine Sulfate 3 mg 06/03/20 18:36 Morphine Sulfate 4 Mg/Ml Cartridge IVPUSH Q4H PRN Pain, Severe (Pain Scale 7-10) Ondansetron HCl 4 mg 06/03/20 18:36 Ondansetron Hcl 4 Mg/2 Ml Vial IVPUSH Q8H PRN Nausea and Vomiting Oxycodone HCl 5 mg 06/03/20 18:36 Oxycodone Hcl Immed Release 5 Mg Tablet PO Q6H PRN Pain, Severe (Pain Scale 7-10) Pharmacy Consult 1 each 06/03/20 15:26 Consult Rx Perform Med Rec MISCELLANE ONCE PRN Consult order Quetiapine Fumarate 50 mg 06/03/20 21:00 06/03/20 20:55 Quetiapine Fumarate 50 Mg Tablet PO 50 mg BEDTIME [facility] Administration Sodium Chloride 3 ml 06/04/20 00:00 06/04/20 09:41 0.9 % Sodium Chloride Flush 3 Ml Syringe [facility]lor[facility] 3 ml 06/04/20 16:00 0.9 % Sodium Chloride Flush 3 Ml Syringe IVFLUSH QSDEFT [facility] Labs CBC & Chem 7: 06/03/20 12:30 06/03/20 17:15 Assessment and Plan (1) Closed fracture of neck of right femur: Status: Acute (2) Fall: Status: Acute (3) Dementia: Status: Acute Assessment and Plan: 79-year-old female patient, who was brought into [facility] after a witnessed fall at home,diagnosed to have rightfemoral neck fracture, admitted for continued monitoring and treatment. 1. Right hip fracture. Patient is scheduled for hip surgery this morning, will continue oxycodone, morphine, and Tylenol for pain control. DVT prophylaxis as per Ortho. Will DC IV fluid 2. Hypertension. Blood pressure trending up will resume home medication lisinopril, and amlodipine. 3. History of hyperlipidemia. continue statin. 4. History of diabetes mellitus. Blood sugar 180 this afternoon, will place patient on diabetic diet, hold metformin, continue insulin sliding scale. 5. History of seizure disorder. Continue lamotrigine. 6. History of dementia. continue on Seroquel. 7. Disposition. Depending on Orthopedic Surgery and PT eval. 8. DVT prophylaxis, aspirin 325 b.i.d. 9. Code status. Full code
[2020-06-04] MEDS: 0.9 % Sodium Chloride Flush 3 ML SYRINGE IVFLUSH ×2 (16:13→23:39)
[2020-06-04 16:58] LABS: Glucose, Whole Blood 234 mg/dL (60-115)
[2020-06-04] MEDS: Insulin Lispro 100 UNIT/ML 3 ML VIAL SUBCUT ×2 (17:28→21:21)
[2020-06-04] MEDS: oxyCODONE HCl Immed Release 5 MG TABLET PO (17:28)
[2020-06-04] MEDS: Acetaminophen 325 MG TABLET 650 MG PO (17:30)
[2020-06-04] MEDS: Morphine Sulfate 4 MG/ML CARTRIDGE 3 MG IVPUSH (20:17)
[2020-06-04 20:33] LABS: Glucose, Whole Blood 173 mg/dL (60-115)
[2020-06-04] MEDS: lamoTRIgine 25 MG TABLET PO (21:22)
[2020-06-04] MEDS: QUEtiapine Fumarate 50 MG TABLET PO (21:22)
[2020-06-05] VITALS (7 sets, daily range): BP systolic 119–148; BP diastolic 52–71; PULSE 69–123; RESP 15–19; TEMP 36.3–37; O2SAT 93–98
--- NOTE | 2020-06-05 07:39 | P.PNOP_ITS ---
Subjective Subjective Date of Service: 06/05/20 Interval history: Pod 1 status post right hip hemiarthroplasty with Dr. Haley. Patient is resting comfortably in bed. Pain is well controlled. No overnight events. Physical Exam Vital Signs: Vital Signs: Last Vital Signs Temp 97.6 F 06/05/20 03:53 Pulse 101 H 06/05/20 03:53 Resp 19 06/05/20 03:53 BP 148/67 H 06/05/20 03:53 Pulse Ox 93 06/05/20 03:53 Body Mass Index 22.1 Const: General: cooperative, healthy appearing and no acute distress Resp: Effort & Inspection: normal respiratory effort and able to speak in complete sentences Cardio: Rate: regular rate Peripheral pulses: Peripheral pulses 2+ throughout GI: Palpation (GI): Soft to palpation Skin: Lesions: no lesions Rashes: no rashes Extrem: Other: Right hip no ecchymosis, redness, drainage. Aquacel is clean dry and intact. NVI. Progress Note: A&P Assessment and plan (1) Closed fracture of neck of right femur: Status: Acute (2) S/P hip hemiarthroplasty: Status: Acute Assessment and Plan: Continue pain mgmnt Begin ASA for dvt ppx Continue PT for right hip hemiarthroplasty Dispo planning-Pending PT eval, pain mgmnt Fall Risk Details Current Medications: Current Medications Generic Name Dose Route Start Last Admin Trade Name Freq PRN Reason Stop Dose Admin Acetaminophen 650 mg 06/03/20 18:16 06/04/20 17:30 Acetaminophen 325 Mg Tablet PO 650 mg Q6H PRN Administration Pain, Mild (Pain Scale 1-3) Amlodipine Besylate 5 mg 06/04/20 09:00 06/04/20 09:41 Amlodipine Besylate 5 Mg Tablet PO Not Given DAILY [facility] Protocol Aspirin 325 mg 06/05/20 22:00 Aspirin 325 Mg Tablet PO BID [facility] Baclofen 2.5 mg 06/03/20 18:36 Baclofen 10 Mg Tablet PO BID PRN muscle spasm Docusate Sodium 100 mg 06/04/20 09:00 06/04/20 09:41 Docusate Sodium 100 Mg Capsule PO Not Given DAILY [facility] Insulin Human Lispro 0 unit 06/04/20 16:30 06/04/20 21:21 Insulin Lispro 100 Unit/Ml 3 Ml Vial SUBCUT 2 unit QIDACHS [facility] Administration Protocol Lamotrigine 25 mg 06/03/20 21:00 06/04/20 21:22 Lamotrigine 25 Mg Tablet PO 25 mg BID [facility] Administration Lisinopril 20 mg 06/04/20 09:00 06/04/20 09:42 Lisinopril 20 Mg Tablet PO Not Given DAILY [facility] Protocol Morphine Sulfate 3 mg 06/03/20 18:36 06/04/20 20:17 Morphine Sulfate 4 Mg/Ml Cartridge IVPUSH 3 mg Q4H PRN Administration Pain, Severe (Pain Scale 7-10) Ondansetron HCl 4 mg 06/03/20 18:36 Ondansetron Hcl 4 Mg/2 Ml Vial IVPUSH Q8H PRN Nausea and Vomiting Oxycodone HCl 5 mg 06/03/20 18:36 06/04/20 17:28 Oxycodone Hcl Immed Release 5 Mg Tablet PO 5 mg Q6H PRN Administration Pain, Severe (Pain Scale 7-10) Pharmacy Consult 1 each 06/03/20 15:26 Consult Rx Perform Med Rec MISCELLANE ONCE PRN Consult order Quetiapine Fumarate 50 mg 06/03/20 21:00 06/04/20 21:22 Quetiapine Fumarate 50 Mg Tablet PO 50 mg BEDTIME [facility] Administration Sodium Chloride 3 ml 06/04/20 00:00 06/04/20 23:39 0.9 % Sodium Chloride Flush 3 Ml Syringe IVFLUSH 3 ml QSHIFT [facility] Administration Sodium Chloride 3 ml 06/04/20 16:00 06/04/20 23:39 0.9 % Sodium Chloride Flush 3 Ml Syringe IVFLUSH Not Given QSHIFT [facility] Time Spent With Patient Time: Total time spent is greater than 50% in coordination of care (as documented) at patient's floor/unit and/or counseling patient: Time with patient: less than 15 minutes
[2020-06-05 08:10] LABS: Glucose, Whole Blood 129 mg/dL (60-115)
[2020-06-05] MEDS: Acetaminophen 325 MG TABLET 650 MG PO (08:16)
[2020-06-05] MEDS: lamoTRIgine 25 MG TABLET PO ×2 (08:17→21:43)
[2020-06-05] MEDS: oxyCODONE HCl Immed Release 5 MG TABLET PO (08:17)
[2020-06-05] MEDS: Docusate Sodium 100 MG CAPSULE PO (08:17)
[2020-06-05] MEDS: 0.9 % Sodium Chloride Flush 3 ML SYRINGE IVFLUSH ×3 (08:17→21:46)
[2020-06-05] MEDS: amLODIPine Besylate 5 MG TABLET PO (08:17)
[2020-06-05] MEDS: lisinopriL 5 MG TABLET PO (11:30)
--- NOTE | 2020-06-05 11:55 | HO.POSTANES ---
Post Anesthesia Evaluation Post Anesthesia Evaluation Vital Signs: Vital Signs Temp Pulse Resp BP Pulse Ox 06/05/20 11:26 97.4 F 99 16 128/52 L 98 06/05/20 08:34 100 121/59 L 98 06/05/20 08:00 98.3 F 100 17 121/59 L 98 06/05/20 03:53 97.6 F 101 H 19 148/67 H 93 06/05/20 00:00 97.3 F 69 19 119/64 97 Anesthesia: General Mental Status: Awake Pain Control: Satisfactory Nausea/Vomiting: None Hydration: Adequate Anesthesia-Related Issues: No Anes. Related Issues
[2020-06-05 11:56] LABS: MANUAL DIFF FLAG NO
[2020-06-05 11:58] LABS: Glucose, Whole Blood 131 mg/dL (60-115)
[2020-06-05 12:00] LABS: Basophils Percent Auto 0.2 % (0-2); Eosinophils Percent Auto 0.3 % (0-4); Hematocrit 31.2 % (37-47); Imm Gran Abs Auto 0.05 X10*3/uL (0.00-0.03); Imm Gran Pct Auto 0.4 % (0.0-0.4); Lymphocytes Absolute Auto 1.1 X10*3/uL (1.2-4.9); Lymphocytes Percent Auto 8.9 % (20-40); Mean Corpuscular HGB Conc 32.1 g/dl (31.0-35.0); Mean Corpuscular Volume 84.1 fL (80-98); Mean Platelet Volume 12.6 fL (9.4-12.3); Monocytes Absolute Auto 0.9 X10*3/uL (0.1-1.2); Monocytes Percent Auto 7.5 % (2-11); Neutrophils Absolute Auto 9.8 X10*3/uL (2.0-8.3); Neutrophils Percent Auto 82.7 % (45-73); Platelet Count 158 X10*3/uL (160-400); Red Blood Count 3.71 X10*6/uL (4.20-5.50); Red Cell Distribution Width 13.3 % (11.0-16.0); White Blood Count 11.8 X10*3/uL (4.8-10.8)
[2020-06-05 12:05] LABS: INTERNATIONAL NORM RATIO 1.1 (0.9-1.1); Prothrombin Time 13.3 SEC (10.8-13.0)
[2020-06-05 12:22] LABS: Anion Gap 15 (12-20); Blood Urea Nitrogen 23 mg/dL (9-16); Calcium 9.2 mg/dL (8.4-10.2); Carbon Dioxide 25 mmol/L (22-29); Chloride 106 mmol/L (96-108); Creatinine Clr Calc Pharmacy 49.6; Estimated Glomerular Filt Rate 58; Glucose Random 140 mg/dL (60-115); Potassium 4.6 mmol/L (3.3-5.1); Sodium 141 mmol/L (135-145)
--- NOTE | 2020-06-05 17:06 | P.PNIM_ITS ---
Subjective Subjective Date of Service: 06/06/20 Interval History: She had hip fracture repaired yesterday, she is confused but that seem to her baseline. Pain with movment Review of Systems Review of Systems: Yes Unobtainable due to mental status Physical Exam Vital Signs: Vital Signs: Last Vital Signs Temp 97.4 F 06/05/20 16:00 Pulse 123 H 06/05/20 16:00 Resp 16 06/05/20 16:00 BP 125/71 06/05/20 16:00 Pulse Ox 98 06/05/20 16:00 Body Mass Index 22.1 General: confused, baseline Resp: CTA bilateral CVS: S1,S2,RRR GI: +BS, NT, no distention Skin: No rash, wound is dry, clean and intact Neuro: motor grossly intact Psych: appropriate affect Objective Data Current Medications Generic Name Dose Route Start Last Admin Trade Name Freq PRN Reason Stop Dose Admin Acetaminophen 650 mg 06/03/20 18:16 06/05/20 08:16 Acetaminophen 325 Mg Tablet PO 650 mg Q6H PRN Administration Pain, Mild (Pain Scale 1-3) Amlodipine Besylate 5 mg 06/04/20 09:00 06/05/20 08:17 Amlodipine Besylate 5 Mg Tablet PO 5 mg DAILY [facility] Administration Protocol Aspirin 325 mg 06/05/20 22:00 Aspirin 325 Mg Tablet PO BID [facility] Baclofen 2.5 mg 06/03/20 18:36 Baclofen 10 Mg Tablet PO BID PRN muscle spasm Docusate Sodium 100 mg 06/04/20 09:00 06/05/20 08:17 Docusate Sodium 100 Mg Capsule PO 100 mg DAILY [facility] Administration Insulin Human Lispro 0 unit 06/04/20 16:30 06/05/20 12:29 Insulin Lispro 100 Unit/Ml 3 Ml Vial SUBCUT Not Given QIDACHS [facility] Protocol Lamotrigine 25 mg 06/03/20 21:00 06/05/20 08:17 Lamotrigine 25 Mg Tablet PO 25 mg BID [facility] Administration Lisinopril 5 mg 06/05/20 09:00 06/05/20 11:30 Lisinopril 5 Mg Tablet PO 5 mg DAILY [facility] Administration Protocol Morphine Sulfate 3 mg 06/03/20 18:36 06/04/20 20:17 Morphine Sulfate 4 Mg/Ml Cartridge IVPUSH 3 mg Q4H PRN Administration Pain, Severe (Pain Scale 7-10) Ondansetron HCl 4 mg 06/03/20 18:36 Ondansetron Hcl 4 Mg/2 Ml Vial IVPUSH Q8H PRN Nausea and Vomiting Oxycodone HCl 5 mg 06/03/20 18:36 06/05/20 08:17 Oxycodone Hcl Immed Release 5 Mg Tablet PO 5 mg Q6H PRN Administration Pain, Severe (Pain Scale 7-10) Pharmacy Consult 1 each 06/03/20 15:26 Consult Rx Perform Med Rec MISCELLANE ONCE PRN Consult order Quetiapine Fumarate 50 mg 06/03/20 21:00 06/04/20 21:22 Quetiapine Fumarate 50 Mg Tablet PO 50 mg BEDTIME [facility] Administration Sodium Chloride 3 ml 06/04/20 00:00 06/05/20 15:41 0.9 % Sodium Chloride Flush 3 Ml Syringe IVFLUSH 3 ml QSHIFT [facility] Administration Sodium Chloride 3 ml 06/04/20 16:00 06/05/20 15:42 0.9 % Sodium Chloride Flush 3 Ml Syringe IVFLUSH Not Given QSHIFT [facility] Labs CBC & Chem 7: 06/06/20 09:27 06/05/20 11:47 Assessment and Plan (1) Closed fracture of neck of right femur: Status: Acute (2) Fall: Status: Acute (3) Dementia: Status: Acute Assessment and Plan: 79-year-old female patient, who was brought into [facility] after a wit nessed fall at home,diagnosed to have rightfemoral neck fracture, admitted for continued monitoring and treatment. 1. Right hip fracture repaired 06/04. -Pain control -PT -ASA for DVT prophylaxis -Will need SNF for rehab 2. Hypertension. Lisinopril, Noravasc 3. Hyperlipidemia. continue statin. 4. History of diabetes mellitus. -Metformin on hol -diabetic diet -SSI 5. History of seizure disorder. Continue lamotrigine. 6. History of dementia with behavior issues. continue on Seroquel. 7. Disposition. SNF probably by tomorrow, get covid today 8. DVT prophylaxis, aspirin 325 b.i.d. 9. Code status. Full code
[2020-06-05 17:28] LABS: Glucose, Whole Blood 140 mg/dL (60-115)
[2020-06-05 18:17] LABS: COVID-19 Test Negative (Negative)
[2020-06-05 20:19] LABS: Glucose, Whole Blood 156 mg/dL (60-115)
[2020-06-05] MEDS: Aspirin 325 MG TABLET PO (21:43)
[2020-06-05] MEDS: QUEtiapine Fumarate 50 MG TABLET PO (21:43)
[2020-06-05] MEDS: Insulin Lispro 100 UNIT/ML 3 ML VIAL SUBCUT (21:44)
[2020-06-06 04:00] VITALS: BP 134/64; PULSE 85; RESP 16; TEMP 36.9; O2SAT 96
--- NOTE | 2020-06-06 07:26 | P.PNOP_ITS ---
Subjective Subjective Date of Service: 06/06/20 Interval history: POD2 s/p right hip kala. Patient is resting comfortably in bed. No overnight events. No complaints. Physical Exam Vital Signs: Vital Signs: Last Vital Signs Temp 98.4 F 06/06/20 04:00 Pulse 85 06/06/20 04:00 Resp 16 06/06/20 04:00 BP 134/64 06/06/20 04:00 Pulse Ox 96 06/06/20 04:00 Body Mass Index 22.1 Const: General: cooperative, healthy appearing and no acute distress Resp: Effort & Inspection: normal respiratory effort and able to speak in comp lete sentences Cardio: Rate: regular rate Peripheral pulses: Peripheral pulses 2+ throughout GI: Palpation (GI): Soft to palpation Skin: Lesions: no lesions Rashes: no rashes Extrem: Other: Right hip no ecchymosis, redness, or drainge. Incision intact. [place] intact. Aquacel dressing changed. NVI. Progress Note: A&P Assessment and plan (1) Closed fracture of neck of right femur: Status: Acute (2) S/P hip hemiarthroplasty: Status: Acute Assessment and Plan: Continue pain mgmnt Continue ASA for dvt ppx Continue PT for Right hip kala Dispo planning-Pending PT eval, pain mgmnt Fall Risk Details Current Medications: Current Medications Generic Name Dose Route Start Last Admin Trade Name Freq PRN Reason Stop Dose Admin Acetaminophen 650 mg 06/03/20 18:16 06/05/20 08:16 Acetaminophen 325 Mg Tablet PO 650 mg Q6H PRN Administration Pain, Mild (Pain Scale 1-3) Amlodipine Besylate 5 mg 06/04/20 09:00 06/05/20 08:17 Amlodipine Besylate 5 Mg Tablet PO 5 mg DAILY [facility] Administration Protocol Aspirin 325 mg 06/05/20 22:00 06/05/20 21:43 Aspirin 325 Mg Tablet PO 325 mg BID [facility] Administration Baclofen 2.5 mg 06/03/20 18:36 Baclofen 10 Mg Tablet PO BID PRN muscle spasm Docusate Sodium 100 mg 06/04/20 09:00 06/05/20 08:17 Docusate Sodium 100 Mg Capsule PO 100 mg DAILY [facility] Administration Insulin Human Lispro 0 unit 06/04/20 16:30 06/05/20 21:44 Insulin Lispro 100 Unit/Ml 3 Ml Vial SUBCUT 2 unit QIDACHS [facility] Administration Protocol Lamotrigine 25 mg 06/03/20 21:00 06/05/20 21:43 Lamotrigine 25 Mg Tablet PO 25 mg BID [facility] Administration Lisinopril 5 mg 06/05/20 09:00 06/05/20 11:30 Lisinopril 5 Mg Tablet PO 5 mg DAILY [facility] Administration Protocol Morphine Sulfate 3 mg 06/03/20 18:36 06/04/20 20:17 Morphine Sulfate 4 Mg/Ml Cartridge IVPUSH 3 mg Q4H PRN Administration Pain, Severe (Pain Scale 7-10) Ondansetron HCl 4 mg 06/03/20 18:36 Ondansetron Hcl 4 Mg/2 Ml Vial IVPUSH Q8H PRN Nausea and Vomiting Oxycodone HCl 5 mg 06/03/20 18:36 06/05/20 08:17 Oxycodone Hcl Immed Release 5 Mg Tablet PO 5 mg Q6H PRN Administration Pain, Severe (Pain Scale 7-10) Pharmacy Consult 1 each 06/03/20 15:26 Consult Rx Perform Med Rec MISCELLANE ONCE PRN Consult order Quetiapine Fumarate 50 mg 06/03/20 21:00 06/05/20 21:43 Quetiapine Fumarate 50 Mg Tablet PO 50 mg BEDTIME [facility] Administration Sodium Chloride 3 ml 06/04/20 00:00 06/05/20 21:46 0.9 % Sodium Chloride Flush 3 Ml Syringe IVFLUSH 3 ml QSHIFT [facility] Administration Sodium Chloride 3 ml 06/04/20 16:00 06/05/20 21:47 0.9 % Sodium Chloride Flush 3 Ml Syringe IVFLUSH Not Given QSHIFT [facility] Time Spent With Patient Time: Total time spent is greater than 50% in coordination of care (as documented) at patient's floor/unit and/or counseling patient: Time with patient: less than 15 minutes
[2020-06-06 07:33] VITALS: BP 139/66; PULSE 81; RESP 16; TEMP 36.4; O2SAT 98
[2020-06-06 07:37] LABS: Glucose, Whole Blood 113 mg/dL (60-115)
[2020-06-06] MEDS: amLODIPine Besylate 5 MG TABLET PO (07:43)
[2020-06-06] MEDS: Docusate Sodium 100 MG CAPSULE PO (07:43)
[2020-06-06] MEDS: oxyCODONE HCl Immed Release 5 MG TABLET PO ×2 (07:43→14:38)
[2020-06-06] MEDS: Aspirin 325 MG TABLET PO (07:43)
[2020-06-06] MEDS: lamoTRIgine 25 MG TABLET PO (07:44)
[2020-06-06] MEDS: lisinopriL 5 MG TABLET PO (07:44)
[2020-06-06] MEDS: Acetaminophen 325 MG TABLET 650 MG PO (07:44)
[2020-06-06] MEDS: 0.9 % Sodium Chloride Flush 3 ML SYRINGE IVFLUSH (07:44)
[2020-06-06 09:15] VITALS: BP 139/66; PULSE 81; O2SAT 98
[2020-06-06 10:01] LABS: Basophils Percent Auto 0.2 % (0-2); Mean Corpuscular Hemoglobin 26.8 pg (27.0-33.0)
[2020-06-06 10:03] LABS: Eosinophils Absolute Auto 0.2 X10*3/uL (0.0-0.4); Hematocrit 28.8 % (37-47); Hemoglobin 9.2 g/dl (12.0-16.0); Imm Gran Abs Auto 0.04 X10*3/uL (0.00-0.03); Imm Gran Pct Auto 0.4 % (0.0-0.4); Mean Corpuscular HGB Conc 31.9 g/dl (31.0-35.0); Mean Platelet Volume 12.9 fL (9.4-12.3); Monocytes Absolute Auto 0.7 X10*3/uL (0.1-1.2); Monocytes Percent Auto 7.5 % (2-11); Neutrophils Absolute Auto 7.7 X10*3/uL (2.0-8.3); Neutrophils Percent Auto 79.9 % (45-73); Platelet Count 144 X10*3/uL (160-400); Red Blood Count 3.43 X10*6/uL (4.20-5.50); Red Cell Distribution Width 13.5 % (11.0-16.0); White Blood Count 9.6 X10*3/uL (4.8-10.8)
--- NOTE | 2020-06-06 10:26 | P.DS_ITS ---
DS: Providers Provider Date of Service: 06/06/20 Date of admission: 06/03/20 18:16 Primary care physician: Yessy Haley MD Consults: 06/03/20 18:36 Consult to Orthopedics Routine Consulting Provider: Chikis Haley Reason for consultation: HIP FX Has provider been notified: No DS: Diagnosis Discharge Diagnosis (1) Closed fracture of neck of right femur: Status: Acute (2) S/P hip hemiarthroplasty: Status: Acute DS: Medications Discharge Medications Home Medications: Home Medications Medication Instructions Recorded Confirmed amlodipine 5 mg PO DAILY 02/01/20 06/03/20 baclofen 2.5 mg PO BID PRN 02/01/20 06/03/20 melatonin 3 mg PO BEDTIME 02/01/20 06/03/20 metformin 500 mg PO DAILY 02/01/20 06/03/20 quetiapine 50 mg PO BEDTIME 02/01/20 06/03/20 rosuvastatin 5 mg PO DAILY 02/01/20 06/03/20 acetaminophen 650 mg PO Q8H PRN 06/03/20 06/03/20 docusate sodium 1 cap PO BID 06/03/20 06/03/20 lamotrigine 25 mg PO BID 06/03/20 06/03/20 lisinopril 20 mg PO QAM 06/03/20 06/03/20 sennosides [senna] 2 tab PO DAILY PRN 06/03/20 06/03/20 Previous Rx's Medication Instructions Recorded aspirin 325 mg PO BID 42 Days #84 tab 02/06/20 docusate sodium [Colace] 100 mg PO DAILY #30 cap 02/08/20 acetaminophen 650 mg PO Q6H PRN #30 tab 06/06/20 oxycodone 5 mg PO Q6H PRN #7 tab 06/06/20 DS: Summary Hospital Course Hospital Course: HPI by Dr. Lee This is an 79-year-old female patient with past medical history significant for type 2 diabetes mellitus, hypertension, hyperlipidemia, seizure disorder, status post excision of benign brain tumor, and history of dementia. The patient was sent to the emergency room by ambulance for evaluation of fall at home. As per the EMS report since the patient is unable to provide history and unable to reach family via phone, the patient had a mechanical fall while standing in the bathroom, witnessed by the patient's daughter. The patient had a light strike of her head with no loss of consciousness. After the fall, the patient complained of right hip pain. She has sustained right elbow abrasions. In the emergency room, workup showed right femoral neck impacted fracture. Orthopedic physician was consulted and recommended to admit the patient to medical service and they will see the patient in consult. At the present time, the patient is awake, alert, confused, unable to provide any meaningful history despite provider enrollment specialist. REVIEW OF SYSTEMS: Unable to obtain secondary to underlying dementia. PAST MEDICAL HISTORY: 1. History of dementia. 2. History of dyslipidemia. 3. History of essential hypertension. 4. History of benign brain tumor. 5. History of seizure disorder. 6. History of type 2 diabetes mellitus. 7. History of fall in the past with left hip fracture, status post surgery in Hospital course: 1. Patient sustained a fall due to mechanical fracture and underwent repair by Dr. West on 06/04 without complications and should undergo PT to help with recovery and therefore will be sent to rehab after discharge. She will be on Oxycodone for pain and ASA for DVT prophylaxis. Other medical issues: 2. Hypertension. To continueLisinopril, Noravasc 3. Hyperlipidemia. continue statin. 4. History of diabetes mellitus. Metformin was on hold but can resume and addition to facility sliding scale order 5. History of seizure disorder. Continue lamotrigine. 6. History of dementia with behavior issues. continue on Seroquel. 7. Disposition. SNF Time Spent with Patient Time attestation: Total time spent providing and/or coordinating discharge services: Discharge coordination time: Greater than 30 minutes Physical Exam Vital Signs: Vital Signs: Last Vital Signs Temp 97.6 F 06/06/20 07:33 Pulse 81 06/06/20 09:15 Resp 16 06/06/20 07:33 BP 139/66 06/06/20 09:15 Pulse Ox 98 06/06/20 09:15 Body Mass Index 22.1 General: confused, baseline Resp: CTA bilateral CVS: S1,S2,RRR GI: +BS, NT, no distention Skin: No rash, wound is dry, clean and intact Neuro: motor grossly intact Psych: appropriate affect DS: Data Data Completed and Pending Completed studies during hospitalization [Text1]: Procedures Replacement of Left Hip Joint, Femoral Surface with Synthetic Substitute, Uncemented, Open Approach (02/01/20) Pending studies at discharge: Pending at discharge 06/04/20 09:35 Surgical [PTH] Routine Labs on day of discharge: Laboratory Results - last 24 hr 06/05/20 06/05/20 06/05/20 11:24 11:47 11:47 WBC 11.8 H RBC 3.71 L Hgb 10.0 L Hct 31.2 L MCV 84.1 MCH 27.0 MCHC 32.1 RDW 13.3 Plt Count 158 L MPV 12.6 H Immature Gran % (Auto) 0.4 Neut % (Auto) 82.7 H Lymph % (Auto) 8.9 L [place] % (Auto) 7.5 Eos % (Auto) 0.3 Baso % (Auto) 0.2 Lymph # (Auto) 1.1 L [place] # (Auto) 0.9 Eos # (Auto) 0.0 Baso # (Auto) 0.0 Abs Immat Gran (auto) 0.05 H Absolute Neuts (auto) 9.8 H Absolute Nucleated RBC 0.000 Nucleated RBC % (auto) 0.0 PT 13.3 H INR 1.1 Sodium Potassium Chloride Carbon Dioxide Anion Gap BUN Creatinine Estim Creat Clear Calc Estimated GFR POC Glucose 131 H Random Glucose Calcium COVID-19 (SUZANNE) COVID-19 [employer] 06/05/20 06/05/20 06/05/20 11:47 17:14 17:54 WBC RBC Hgb Hct MCV MCH MCHC RDW Plt Count MPV Immature Gran % (Auto) Neut % (Auto) Lymph % (Auto) [place] % (Auto) Eos % (Auto) Baso % (Auto) Lymph # (Auto) [place] # (Auto) Eos # (Auto) Baso # (Auto) Abs Immat Gran (auto) Absolute Neuts (auto) Absolute Nucleated RBC Nucleated RBC % (auto) PT INR Sodium 141 Potassium 4.6 Chloride 106 Carbon Dioxide 25 Anion Gap 15 BUN 23 H Creatinine 0.93 Estim Creat Clear Calc 49.6 Estimated GFR 58 POC Glucose 140 H Random Glucose 140 H Calcium 9.2 COVID-19 (SUZANNE) Negative COVID-19 Clin Com See Note 06/05/20 06/06/20 06/06/20 20:00 07:34 09:27 WBC 9.6 RBC 3.43 L Hgb 9.2 L Hct 28.8 L MCV 84.0 MCH 26.8 L MCHC 31.9 RDW 13.5 Plt Count 144 L MPV 12.9 H Immature Gran % (Auto) 0.4 Neut % (Auto) 79.9 H Lymph % (Auto) 10.0 L [place] % (Auto) 7.5 Eos % (Auto) 2.0 Baso % (Auto) 0.2 Lymph # (Auto) 1.0 L [place] # (Auto) 0.7 Eos # (Auto) 0.2 Baso # (Auto) 0.0 Abs Immat Gran (auto) 0.04 H Absolute Neuts (auto) 7.7 Absolute Nucleated RBC 0.000 Nucleated RBC % (auto) 0.0 PT INR Sodium Potassium Chloride Carbon Dioxide Anion Gap BUN Creatinine Estim Creat Clear Calc Estimated GFR POC Glucose 156 H 113 Random Glucose Calcium COVID-19 (SUZANNE) COVID-19 [employer] 06/06/20 09:27 WBC RBC Hgb Cancelled Hct Cancelled MCV MCH MCHC RDW Plt Count MPV Immature Gran % (Auto) Neut % (Auto) Lymph % (Auto) [place] % (Auto) Eos % (Auto) Baso % (Auto) Lymph # (Auto) [place] # (Auto) Eos # (Auto) Baso # (Auto) Abs Immat Gran (auto) Absolute Neuts (auto) Absolute Nucleated RBC Nucleated RBC % (auto) PT INR Sodium Potassium Chloride Carbon Dioxide Anion Gap BUN Creatinine Estim Creat Clear Calc Estimated GFR POC Glucose Random Glucose Calcium COVID-19 (SUZANNE) COVID-19 Clin Com Discharge Plan Discharge Anticipated Discharge Date/Time: 06/06/20 10:10 Patient Disposition: Xfer SNF Discharge Diagnosis: Hip fracture, dementia, fall, Referrals: Chikis Haley MD [Physician] - Discharge Medications: New acetaminophen 325 mg Tablet 650 mg PO Q6H PRN (Reason: Pain, Mild (Pain Scale 1-3)) Qty: 30 RF: 0 oxycodone 5 mg Tablet 5 mg PO Q6H PRN (Reason: Pain, Severe (Pain Scale 7-10)) Qty: 7 RF: 0 Continued sennosides [senna] 8.6 mg tablet 2 tab PO DAILY PRN (Reason: constipation) RF: 0 lisinopril 20 mg tablet 20 mg PO QAM RF: 0 lamotrigine 25 mg tablet 25 mg PO BID RF: 0 docusate sodium 100 mg capsule 1 cap PO BID RF: 0 acetaminophen 325 mg tablet 650 mg PO Q8H PRN (Reason: pain or fever) RF: 0 quetiapine 25 mg tablet 50 mg PO BEDTIME RF: 0 melatonin 3 mg tablet 3 mg PO BEDTIME RF: 0 amlodipine 5 mg tablet 5 mg PO DAILY RF: 0 metformin 500 mg tablet extended release 24 hr 500 mg PO DAILY RF: 0 rosuvastatin 5 mg tablet 5 mg PO DAILY RF: 0 baclofen 5 mg tablet 2.5 mg PO BID PRN (Reason: muscle spasm) RF: 0 aspirin 325 mg Tablet 325 mg PO BID 42 Days Qty: 84 RF: 0 docusate sodium [Colace] 100 mg capsule 100 mg PO DAILY Qty: 30 RF: 0 Discharge Orders: Discharge Order (Routine); Ordered 06/06/20 Ordered By: Adolfo Huynh Activity on Discharge: Use cane or walker Stand Alone Forms: Patient Portal Discharge page Activity Restrictions/Additional Instructions: Physical Therapy for right hip hemiarthroplasty: no precautions, gait training, ROM, strength Limit stair climbing No showering, no tub bath-keep dressing clean, dry and intact Continue Aspirin 325mg tabs twice a day x 4 weeks Follow up with [facility] in 2 weeks Care Plan Goals: fall prevention Health Concerns: fall, hip fracture Plan of Treatment: Short term rehab Assessment: Hip fracture due to fall and has had repair and now needs rehab
[2020-06-06 10:40] LABS: Anion Gap 14 (12-20); Blood Urea Nitrogen 24 mg/dL (9-16); Calcium 8.6 mg/dL (8.4-10.2); Carbon Dioxide 25 mmol/L (22-29); Chloride 106 mmol/L (96-108); Creatinine Clr Calc Pharmacy 50.1; Estimated Glomerular Filt Rate 59; Glucose Random 148 mg/dL (60-115); Potassium 3.8 mmol/L (3.3-5.1); Sodium 141 mmol/L (135-145)
--- NOTE | 2020-06-06 10:59 | MHC.CM.PN ---
IMM 06/06/20, PT DISCHARGING TODAY AT 1PM TO [facility] FOR STR W/ACTION FOR BLS TRANSPORT, PT'S DAUGHTER NOTIFIED AT 10:55AM [phone]. NSG, ORTHO AND HOSPITALIST AWARE OF PT'S DISPO.
[2020-06-06 11:14] VITALS: BP 116/54; PULSE 78; RESP 16; TEMP 36.3; O2SAT 99
[2020-06-06 11:22] LABS: Glucose, Whole Blood 138 mg/dL (60-115)
== END 2020-06-06 16:30 | disposition skilled nursing facility (03) | DRG 522 ==
LOC: HO.ED 16:05 → HO.EDOVER 18:28 → HO.S3 18:31
PROVIDERS: Orthopaedic Surgery; Physician Assistant; Admitting Provider Hospitalist; Emergency Provider Emergency Medicine Emergency Medical Services; PCP Family Medicine; Visit Provider Internal Medicine
PROC: 0SRR0JA Replacement of Right Hip Joint, Femoral Surface with Synthetic Substitute, Uncemented, Open Approach (ICD-10-PCS; CPT 27125; principal; 2020-06-04 09:00)
DX: S72.011A Unspecified intracapsular fracture of right femur, initial encounter for closed fracture (principal); W01.10XA Fall on same level from slipping, tripping and stumbling with subsequent striking against unspecified object, initial encounter; Y93.9 Activity, unspecified; Y92.002 Bathroom of unspecified non-institutional (private) residence as the place of occurrence of the external cause; E78.5 Hyperlipidemia, unspecified; Y99.9 Unspecified external cause status; I10 Essential (primary) hypertension; F03.90 Unspecified dementia, unspecified severity, without behavioral disturbance, psychotic disturbance, mood disturbance, and anxiety; G40.909 Epilepsy, unspecified, not intractable, without status epilepticus; E11.9 Type 2 diabetes mellitus without complications; Z20.822 Contact with and (suspected) exposure to COVID-19; Z88.0 Allergy status to penicillin; Z79.84 Long term (current) use of oral hypoglycemic drugs; Z79.899 Other long term (current) drug therapy
CPT/HCPCS: 36415; 70450; 71045; 72125; 73502; 80048; 80053; 81003; 82947; 83690; 85025; 85610; 85730; 86850; 86900; 87635; 88305; 88311; 96374; 96375; 97162; 97167; 97530; 99285; C1776; J0131; J0690; J1100; J2270; J2370; J2405; J3010

== ENCOUNTER → 2020-06-19 12:45 | Outpatient (BNVA) | payer OTHER, SELFPAY | PROVIDERS: PCP Family Medicine; Visit Provider Physician Assistant | DX: S72.001D Fracture of unspecified part of neck of right femur, subsequent encounter for closed fracture with routine healing (principal); Z96.649 Presence of unspecified artificial hip joint | CPT/HCPCS: 99202; 99212 ==

== ENCOUNTER 2020-07-31 08:15 | Outpatient (REF) | payer OTHER, SELFPAY | END 2020-07-31 08:16 | disposition home or self-care (01) | LOC: HO.HOSX 08:15 | PROVIDERS: Visit Provider Physician Assistant | DX: Z13.89 Encounter for screening for other disorder (principal) ==

== ENCOUNTER 2020-08-03 08:08 | Outpatient (REF) | payer OTHER, SELFPAY ==
--- NOTE | ~2020-08-03 | XR_ITS ---
EXAMINATION: PELVIS AND RIGHT HIP. CLINICAL INFORMATION: Rib pain COMPARISON: AP pelvis and right hip 08/03/2020 TECHNIQUE: AP pelvis and right hip 2 views. FINDINGS: There is bilateral hip prosthesis in satisfactory alignment. The right hip joint is slightly higher in position compared to left side. The SI joints are normal. The pelvic bones are unremarkable. There is moderate constipation. A single AP view right hip reveals no visible fracture or dislocation. 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 Left hip prostheses and rest of the pelvis is unremarkable.
--- NOTE | ~2020-08-03 | XR_ITS ---
EXAMINATION: PELVIS AND RIGHT HIP. CLINICAL INFORMATION: Rib pain COMPARISON: AP pelvis and right hip 08/03/2020 TECHNIQUE: AP pelvis and right hip 2 views. FINDINGS: There is bilateral hip prosthesis in satisfactory alignment. The right hip joint is slightly higher in position compared to left side. The SI joints are normal. The pelvic bones are unremarkable. There is moderate constipation. A single AP view right hip reveals no visible fracture or dislocation. XR/XR pelvis 1-2V IMPRESSION: Total right hip prosthesis in satisfactory alignment is unchanged to recent exam 06/05/2020. Left hip prostheses and rest of the pelvis is unremarkable.
== END 2020-08-03 08:09 | disposition home or self-care (01) ==
LOC: HO.HOSX 08:08
PROVIDERS: Visit Provider Physician Assistant
DX: S72.001D Fracture of unspecified part of neck of right femur, subsequent encounter for closed fracture with routine healing (principal); Z96.641 Presence of right artificial hip joint
CPT/HCPCS: 72170; 73502; 99212